=== PATIENT | female | born 1955 | race Caucasian/White ===

== ENCOUNTER 2016-05-09 22:13 | Emergency (ER) | payer OTHER ==
[2016-05-09 22:17] VITALS: BP 144/88; PULSE 95; TEMP 97.5; BMI 28.3
--- NOTE | 2016-05-09 22:36 | PDOC ---
History of Present Illness - General History Source: Patient Exam Limitations: No Limitations - History of Present Illness Initial Comments: 05/10/16 01:45 The patient is a 61 year old female with significant past medical history of MS , asthma, ulcerative colitis, anxiety, spinal stenosis who presents to the ED with 18 days of constipation. Patient states she has not had a bowel movement in 18 days. Patient denies abdominal pain, nausea, and vomiting. She also has complaints of increasing left arm weakness that she initially believes is due to a previous fall in the past. Patient denies numbness and tingling of the left arm. The patient denies fever, chills, cough, SOB, chest pain, and palpitations. Allergies: levofloxacin, natalizumab Social History: Lives alone- [facility]. No alcohol, tobacco, or drug use reported. Past Surgical History: None reported PCP: Dr. Pena Neurology: Dr. Jo Ma ([facility]) <Yaneth Burrows - Last Filed: 05/10/16 01:45> <Darlin Herbert - Last Filed: 05/10/16 05:10> - General Chief Complaint: Constipation Stated Complaint: Constipation Time Seen by Provider: 05/09/16 22:36 Past History <Yaneth Burrows - Last Filed: 05/10/16 01:45> - Past Medical History Asthma: Yes GI Disorders: Yes (colitis, proctitis) - Immunization History Immunization Up to Date: Yes - Psycho/Social/Smoking Cessation Hx Anxiety: No Suicidal Ideation: No Smoking History: Never smoked Have you smoked in the past 12 months: No If you are a former smoker, when did you quit?: 29 YEARS AGO Information on smoking cessation initiated: No Hx Alcohol Use: No Drug/Substance Use Hx: No Substance Use Type: Marijuana Hx Substance Use Treatment: No <Darlin Herbert - Last Filed: 05/10/16 05:10> - Past Medical History Allergies/Adverse Reactions: Allergies Allergy/AdvReac Type Severity Reaction Status Date / Time levofloxacin [From Levaquin] Allergy Verified 05/09/16 22:14 natalizumab [From Tysabri] Allergy Verified 05/09/16 22:14 IV DYE Allergy Severe Difficulty Uncoded 05/09/16 22:14 Breathing Home Medications: Ambulatory Orders Montelukast Na [Singulair -] 10 mg PO HS 05/24/15 Amitriptyline HCl [Elavil -] 100 mg PO HS 05/26/15 Eszopiclone [Lunesta] 2 mg PO HS 10/18/15 Hydrochlorothiazide [Hctz -] 12.5 mg PO DAILY 10/18/15 Fluticasone/Salmeterol [Advair 250-50 Diskus] 1 each IH DAILY 11/19/15 Glycerin [Adult Glycerin] 1 each PRN #20 supp.rect 05/10/16 Review of Systems - Review of Systems Able to Perform ROS?: Yes Comments:: 05/10/16 01:45 CONSTITUTIONAL: Absent: fever, chills, diaphoresis, generalized weakness, malaise, loss of appetite HEENT: Absent: rhinorrhea, nasal congestion, throat pain, throat swelling, difficulty swallowing, mouth swelling, ear pain, eye pain, visual Changes CARDIOVASCULAR: Absent: chest pain, syncope, palpitations, irregular heart rate, lightheadedness , peripheral edema RESPIRATORY: Absent: cough, shortness of breath, dyspnea with exertion, orthopnea, wheezing, stridor, hemoptysis GASTROINTESTINAL: +constipation Absent: abdominal pain, abdominal distension, nausea, vomiting, diarrhea, melena, hematochezia GENITOURINARY: Absent: dysuria, frequency, urgency, hesitancy, hematuria, flank pain, genital pain MUSCULOSKELETAL: Absent: myalgia, arthralgia, joint swelling SKIN: Absent: rash, itching, pallor NEUROLOGIC: +increasing left arm weakness Absent: headache, focal paresthesias, dizziness, unsteady gait, seizure, mental status changes, bladder or bowel incontinence PSYCHIATRIC: Absent: anxiety, depression, suicidal or homicidal ideation, hallucinations. <Yaneth Burrows - Last Filed: 05/10/16 01:45> *Physical Exam - Vital Signs Last Vital Signs Temp Pulse Resp BP Pulse Ox 97.5 F L 95 H 18 144/88 95 05/09/16 22:15 05/09/16 22:15 05/09/16 22:15 05/09/16 22:15 05/09/16 22:15 - Physical Exam Comments: 05/10/16 01:45 GENERAL: Pt is afebrile. Well developed, well nourished. Awake and alert. No acute distress. HEENT: Normocephalic, atraumatic. PERRLA, EOMI. No conjunctival pallor. Sclera are non- icteric. Moist mucous membranes. Oropharynx is clear. NECK: Supple. Full ROM. No JVD. Carotid pulses 2+ and symmetric, without bruits. No thyromegaly. No lymphadenopathy. CARDIOVASCULAR: Regular rate and rhythm. No murmurs, rubs, or gallops. Distal pulses are 2+ and symmetric. PULMONARY: No evidence of respiratory distress. Lungs clear to auscultation bilaterally. No wheezing, rales or rhonchi. ABDOMINAL: Soft. Non-tender. Distended. No rebound or guarding. No organomegaly. Normoactive bowel sounds. MUSCULOSKELETAL No bony deformities or tenderness. No CVA tenderness. EXTREMITIES: Bruising on legs bilaterally. No clubbing. No edema. No calf tenderness. SKIN: Warm and dry. Normal capillary refill. No rashes. No jaundice. NEUROLOGICAL: Alert, awake, appropriate. 3/5 strength upper extremities bilaterally. 2/5 strength lower extremities bilaterally. Limited ROM of left arm secondary to questionable weakness. PSYCHIATRIC: Cooperative. Good eye contact. Appropriate mood and affect. <Yaneth Burrows - Last Filed: 05/10/16 01:45> - Vital Signs Last Vital Signs Temp Pulse Resp BP Pulse Ox 97.5 F L 95 H 18 144/88 95 05/09/16 22:15 05/09/16 22:15 05/09/16 22:15 05/09/16 22:15 05/09/16 22:15 <Darlin Herbert - Last Filed: 05/10/16 05:10> ED Treatment Course - LABORATORY CBC & Chemistry Diagram: 05/10/16 00:47 05/10/16 00:47 - ADDITIONAL ORDERS Additional order review: Laboratory Results 05/10/16 00:47 Sodium 141 Potassium 3.3 L Chloride 104 Carbon Dioxide 28 Anion Gap 9 BUN 17 D Creatinine 0.8 Creat Clearance w eGFR > 60 Random Glucose 104 Calcium 9.3 Total Bilirubin 0.6 D AST 17 D ALT 21 D Alkaline Phosphatase 80 Total Protein 6.9 Albumin 3.7 Total Amylase 42 Lipase 129 05/10/16 00:47 RBC 5.10 MCV 86.2 MCHC 34.3 RDW 12.6 MPV 7.3 L Neutrophils % 62.4 Lymphocytes % 27.7 D Monocytes % 6.9 Eosinophils % 1.8 D Basophils % 1.2 D - Medications Given in the ED: ED Medications Discontinued Medications Generic Name Dose Route Start Last Admin Trade Name Prakash PRN Reason Stop Dose Admin Sodium Chloride 1,000 ml 05/09/16 23:49 05/10/16 00:51 Normal Saline - IV 05/09/16 23:50 1,000 ml ONCE ONE Administration <Yaneth Burrows - Last Filed: 05/10/16 01:45> - LABORATORY CBC & Chemistry Diagram: 05/10/16 00:47 05/10/16 00:47 <Darlin Herbert - Last Filed: 05/10/16 05:10> Medical Decision Making - Medical Decision Making 05/10/16 01:34 Pt has MS and spends most of her time in bed; SHe has 24 hour home health aides. Pt states that she has been constipated for 18 days. Abd is taut but non tender and not a surgiocal abdomen. Pt has no fever. She is just uncomfortable and wants to be evacuated.. Pt appears dehdrated. NSS give; glycerin suppositories given. Pt was able to move her bowels and she is feeling vastly improved. She will be sent home with ambulance. CXR is normal; labs wnl, except potassium is low; she was given magnesium and potassium. Pt is vastly improved. <Darlin Herebrt - Last Filed: 05/10/16 05:10> *DC/Admit/Observation/Transfer - Attestations Scribe Attestion: 05/10/16 01:45 Documentation prepared by Yaneth Burrows, acting as medical records specialist for Darlin Herbert MD <Yaneth Burrows - Last Filed: 05/10/16 01:45> - Discharge Dispostion Admit: No <Darlin Herbert - Last Filed: 05/10/16 05:10> Diagnosis at time of Disposition: Multiple sclerosis, Chronic constipation - Discharge Dispostion Disposition: HOME Condition at time of disposition: Improved - Prescriptions Prescriptions: Glycerin [Adult Glycerin] 1 each RC PRN #20 supp.rect - Patient Instructions Printed Discharge Instructions: DI for Constipation
[2016-05-09] MEDS ORDERED: SODIUM CHLORIDE 0.9% 1000 ML INFUS.BAG IV ONE (23:49)
[2016-05-10] MEDS ORDERED: GLYCERIN 1 RECTAL SUPPOSITORY, ADULT PR ONE (00:53)
[2016-05-10 01:03] LABS: BASOPHIL 1.2 % (0-2.0); EOSINOPHIL 1.8 % (0-4.5); MCH 29.5 pg (25.7-33.7); MCHC 34.3 g/dl (32.0-36.0); MEAN CELL VOLUME 86.2 fl (80-96); MEAN PLT VOLUME 7.3 fl (7.5-11.1); NEUTROPHILS 62.4 % (42.8-82.8); PLATELET COUNT 288 K/MM3 (134-434); RDW 12.6 % (11.6-15.6); WHITE BLOOD COUNT 9.4 K/mm3 (4.0-10.0)
[2016-05-10] MEDS ORDERED: GLYCERIN 1 RECTAL SUPPOSITORY, ADULT RC ONE (01:17)
[2016-05-10 01:42] LABS: ALBUMIN 3.7 g/dl (3.4-5.0); ALK PHOS 80 U/L (45-117); AMYLASE 42 U/L (25-115); ANION GAP 9 (8-16); BILIRUBIN,TOTAL 0.6 mg/dL (0.2-1.0); CALCIUM 9.3 mg/dL (8.5-10.1); CO2 28 mmol/L (21-32); CREATININE 0.8 mg/dL (0.55-1.02); GLUCOSE,RANDOM 104 mg/dL (74-106); SGOT/AST 17 U/L (15-37); SGPT/ALT 21 U/L (12-78); TOT PROT 6.9 g/dl (6.4-8.2)
[2016-05-10 02:17] LABS: URINE APPEARANCE CLEAR; URINE BILIRUBIN NEGATIVE (NEGATIVE); URINE BLOOD NEGATIVE (NEGATIVE); URINE COLOR YELLOW; URINE GLUCOSE (UA) NEGATIVE (NEGATIVE); URINE KETONE NEGATIVE (NEGATIVE); URINE LEUK ESTERASE NEGATIVE (NEGATIVE); URINE NITRITE NEGATIVE (NEGATIVE); URINE PROTEIN NEGATIVE (NEGATIVE); URINE UROBILINOGEN NEGATIVE E.U./dl (0.2-1.0)
[2016-05-10] MEDS ORDERED: MAGNESIUM SULF 50% (8.12 MEQ/2 ML-1 GM VIAL) IVPB ONE (02:36)
[2016-05-10] MEDS ORDERED: POTASSIUM CHLORIDE TABS 20 MEQ TABLET.ER (FP) PO ONE ×2 (02:36→03:09)
[2016-05-10] MEDS ORDERED: MAGNESIUM SULF 50% (8.12 MEQ/2 ML-1 GM VIAL) ONE (03:09)
[2016-05-10] MEDS ORDERED: SODIUM CHLORIDE 0.9% 500 ML INFUS.BAG IV ONE (04:28)
--- NOTE | 2016-05-10 11:53 | EKG ---
Test Reason : Blood Pressure : / mmHG Vent. Rate : 090 BPM Atrial Rate : 090 BPM P-R Int : 138 ms QRS Dur : 118 ms QT Int : 378 ms P-R-T Axes : 068 068 066 degrees QTc Int : 462 ms NORMAL SINUS RHYTHM INCOMPLETE RIGHT BUNDLE BRANCH BLOCK T WAVE ABNORMALITY, CONSIDER ANTEROLATERAL ISCHEMIA PROLONGED QT ABNORMAL ECG WHEN COMPARED WITH ECG OF 17-OCT-2015 21:41, CRITERIA FOR SEPTAL INFARCT ARE NO LONGER PRESENT T WAVE INVERSION NOW EVIDENT IN LATERAL LEADS Confirmed by WILI GEORGE, SUSAN ([id number]) on 05/10/2016 11:53:25 AM Referred By: Confirmed By:SUSAN RASHEED MD
== END 2016-05-10 05:48 | disposition home or self-care (01) ==
LOC: JER 22:13
PROC: 3E033GC Introduction of Other Therapeutic Substance into Peripheral Vein, Percutaneous Approach (ICD-10-PCS; principal; 2016-05-09)
DX: G35 Multiple sclerosis (principal); K59.09 Other constipation; Z87.891 Personal history of nicotine dependence; J45.909 Unspecified asthma, uncomplicated; F41.9 Anxiety disorder, unspecified; M48.00 Spinal stenosis, site unspecified
CPT/HCPCS: 36415; 71010-TC; 80053; 81003; 82150; 83690; 85025; 93005; 93010; 96374; 99281-25

== ENCOUNTER 2016-07-06 05:11 | Observation (INO) | payer OTHER ==
[2016-07-06 05:17] VITALS: BMI 29.2
--- NOTE | 2016-07-06 05:33 | PDOC ---
[id number] No Limitations - History of Present Illness Initial Comments: 07/06/16 05:54 The patient is a 61 year old female with significant past medical history of MS , asthma, ulcerative colitis, anxiety, spinal stenosis who presents to the ED BIBA from home with SOB just prior to arrival. Patient has a DITCH REPAIRER that comes in from 8am to 8pm and after her DITCH REPAIRER leaves, patient is in bed for the rest of the night. She states prior to going to bed, she was in her usual state of health when she suddenly felt SOB with occasional dry cough just prior to arrival. The patient denies fever, chills, diaphoresis, lightheadedness, chest pain, and palpitations. The patient denies abdominal pain, nausea, vomiting, and diarrhea. Allergies: levofloxacin, natalizumab Social History: Lives alone- [facility]. No alcohol, tobacco, or drug use reported. Past Surgical History: None reported PCP: Dr. Pena Neurology: Dr. Jo Ma ([facility]) <Yaneth Burrows - Last Filed: 07/06/16 07:03> - General History Source: Patient <JewelsColby mcdowell - Last Filed: 07/10/16 19:46> - General Chief Complaint: Shortness of Breath Stated Complaint: SOB Time Seen by Provider: 07/06/16 05:33 Past History <Yaneth Burrows - Last Filed: 07/06/16 07:03> - Past Medical History Asthma: Yes GI Disorders: Yes (colitis, proctitis) - Immunization History Immunization Up to Date: Yes - Psycho/Social/Smoking Cessation Hx Anxiety: No Suicidal Ideation: No Smoking History: Never smoked Have you smoked in the past 12 months: No Number of Cigarettes Smoked Daily: 0 If you are a former smoker, when did you quit?: 29 YEARS AGO Information on smoking cessation initiated: No Hx Alcohol Use: No Drug/Substance Use Hx: No Substance Use Type: Marijuana Hx Substance Use Treatment: No <Colby Merino - Last Filed: 07/10/16 19:46> - Past Medical History Allergies/Adverse Reactions: Allergies Allergy/AdvReac Type Severity Reaction Status Date / Time levofloxacin [From Levaquin] Allergy Verified 07/06/16 05:15 natalizumab [From Tysabri] Allergy Verified 07/06/16 05:15 IV DYE Allergy Severe Difficulty Uncoded 07/06/16 05:15 Breathing Home Medications: Ambulatory Orders Montelukast Na [Singulair -] 10 mg PO HS 05/24/15 Amitriptyline HCl [Elavil -] 100 mg PO HS 05/26/15 Eszopiclone [Lunesta] 10 mg PO HS 10/18/15 Hydrochlorothiazide [Hctz -] 12.5 mg PO DAILY 10/18/15 Fluticasone/Salmeterol [Advair 250-50 Diskus] 1 each IH DAILY 11/19/15 Cholecalciferol (Vitamin D3) [Vitamin D -] 2,000 unit PO DAILY 07/06/16 Dalfampridine [Ampyra] 10 mg PO BID 07/06/16 Prednisone 10 mg PO DAILY #12 tablet 07/07/16 Review of Systems - Review of Systems Able to Perform ROS?: Yes Comments:: 07/06/16 05:54 CONSTITUTIONAL: Absent: fever, chills, diaphoresis, generalized weakness, malaise, loss of appetite HEENT: Absent: rhinorrhea, nasal congestion, throat pain, throat swelling, difficulty swallowing, mouth swelling, ear pain, eye pain, visual Changes CARDIOVASCULAR: Absent: chest pain, syncope, palpitations, irregular heart rate, lightheadedness , peripheral edema RESPIRATORY: +cough, shortness of breath Absent: dyspnea with exertion, orthopnea, wheezing, stridor, hemoptysis GASTROINTESTINAL: Absent: abdominal pain, abdominal distension, nausea, vomiting, diarrhea, constipation, melena, hematochezia GENITOURINARY: Absent: dysuria, frequency, urgency, hesitancy, hematuria, flank pain, genital pain MUSCULOSKELETAL: Absent: myalgia, arthralgia, joint swelling SKIN: Absent: rash, itching, pallor NEUROLOGIC: Absent: headache, focal weakness or paresthesias, dizziness, seizure, mental status changes, bladder or bowel incontinence <Yaneth Burrows - Last Filed: 07/06/16 07:03> *Physical Exam - Vital Signs Last Vital Signs Temp Pulse Resp BP Pulse Ox 97.4 F L 88 16 134/103 92 L 07/06/16 05:15 07/06/16 05:15 07/06/16 05:15 07/06/16 05:15 07/06/16 05:15 - Physical Exam Comments: 07/06/16 05:54 GENERAL: Well developed, well nourished. Awake and alert. No acute distress. HEENT: Normocephalic, atraumatic. PERRLA, EOMI. No conjunctival pallor. Sclera are non- icteric. Moist mucous membranes. Oropharynx is clear. NECK: Supple. No JVD. Carotid pulses 2+ and symmetric, without bruits. No thyromegaly. No lymphadenopathy. CARDIOVASCULAR: Tachycardia. Regular rhythm. No murmurs, rubs, or gallops. Distal pulses are 2+ and symmetric. PULMONARY: Moderate respiratory distress. Handling secretions well. Tachypneic. Decreased breath sounds. No wheezing, rales or rhonchi. ABDOMINAL: Soft. Non-tender. Non-distended. No rebound or guarding. No organomegaly. Normoactive bowel sounds. MUSCULOSKELETAL No bony deformities or tenderness. No CVA tenderness. EXTREMITIES: No cyanosis. No clubbing. No edema. No calf tenderness. SKIN: Warm and dry. Normal capillary refill. No rashes. No jaundice. NEUROLOGICAL: Alert, awake, oriented. Answering questions appropriately. 1/5 muscle strength x4 extremities. PSYCHIATRIC: Cooperative. Good eye contact. Appropriate mood and affect. <Yaneth Burrows - Last Filed: 07/06/16 07:03> - Vital Signs Last Vital Signs Temp Pulse Resp BP Pulse Ox 97.4 F L 88 16 134/103 92 L 07/06/16 05:15 07/06/16 05:15 07/06/16 05:15 07/06/16 05:15 07/06/16 05:15 <Colby Merino - Last Filed: 07/10/16 19:46> Heart Score/ECG Review - ECG Impressions Comment:: 07/06/16 07:03 <Yaneth Burrows - Last Filed: 07/06/16 07:03> ED Treatment Course - LABORATORY CBC & Chemistry Diagram: 07/06/16 05:48 07/06/16 05:48 <Yaneth Burrows - Last Filed: 07/06/16 07:03> - LABORATORY CBC & Chemistry Diagram: 07/07/16 05:35 07/07/16 05:35 <Colby Merino - Last Filed: 07/10/16 19:46> Medical Decision Making - Medical Decision Making 07/10/16 19:46 Dr. Merino: The scribe's documentation has been prepared under my direction and personally reviewed by me in its entirery. I confirm that the note above accurately reflects all work, treatment, procedures, and medical decision making performed by me. <Colby Merino - Last Filed: 07/10/16 19:46> *DC/Admit/Observation/Transfer - Attestations Scribe Attestion: 07/06/16 05:55 Documentation prepared by Yaneth Burrows, acting as medical assistant per diem for Colby Merino MD <Yaneth Burrows - Last Filed: 07/06/16 07:03> - Discharge Dispostion Admit: No <Colby Merino - Last Filed: 07/10/16 19:46> Diagnosis at time of Disposition: Multiple sclerosis Asthma Qualifiers: Asthma severity: unspecified severity Asthma complication type: with acute exacerbation Qualified Code(s): J45.901 - Unspecified asthma with (acute) exacerbation - Discharge Dispostion Disposition: HOME Condition at time of disposition: Stable - Prescriptions
[2016-07-06] MEDS ORDERED: ALBUTEROL SO4 2.5/IPRATROPIUM 0.5 INH SOL 3 ML VIAL.NEB. NEB STA ×2 (05:35→05:36)
[2016-07-06] MEDS ORDERED: methylPREDNISolone NA SUCC 125 MG/2 ML VIAL IVPB ONE (05:35)
[2016-07-06] MEDS ORDERED: SODIUM CHLORIDE 1,000 ML IV STA (05:35)
[2016-07-06] MEDS ORDERED: methylPREDNISolone NA SUCC 125 MG/2 ML VIAL ONE (05:45)
[2016-07-06 06:28] LABS: BASOPHIL 0.8 % (0-2.0); EOSINOPHIL 4.5 % (0-4.5); MCH 29.6 pg (25.7-33.7); MEAN CELL VOLUME 87.1 fl (80-96); MEAN PLT VOLUME 7.3 fl (7.5-11.1); NEUTROPHILS 55.7 % (42.8-82.8); PLATELET COUNT 323 K/MM3 (134-434); RDW 13.5 % (11.6-15.6); WHITE BLOOD COUNT 7.3 K/mm3 (4.0-10.0)
[2016-07-06 06:40] LABS: INR 1.03 (0.82-1.09); PROTHROMBIN TIME (PATIENT) 11.3 SEC (9.98-11.88)
[2016-07-06 06:48] LABS: ANION GAP 8 (8-16); BILIRUBIN,TOTAL 0.3 mg/dL (0.2-1.0); CALCIUM 9.4 mg/dL (8.5-10.1); CO2 31 mmol/L (21-32); CREATININE 0.8 mg/dL (0.55-1.02); GLUCOSE,RANDOM 108 mg/dL (74-106); MAGNESIUM 2.4 mg/dL (1.8-2.4); SGOT/AST 35 U/L (15-37); SGPT/ALT 55 U/L (12-78); TOT PROT 7.1 g/dl (6.4-8.2)
[2016-07-06 06:51] LABS: ALK PHOS 108 U/L (45-117); TROPONIN I < 0.02 ng/ml (0.00-0.05)
[2016-07-06 06:54] LABS: URINE APPEARANCE CLEAR; URINE BILIRUBIN NEGATIVE (NEGATIVE); URINE BLOOD NEGATIVE (NEGATIVE); URINE COLOR YELLOW; URINE GLUCOSE (UA) NEGATIVE (NEGATIVE); URINE KETONE NEGATIVE (NEGATIVE); URINE LEUK ESTERASE NEGATIVE (NEGATIVE); URINE NITRITE NEGATIVE (NEGATIVE); URINE PROTEIN NEGATIVE (NEGATIVE); URINE UROBILINOGEN NEGATIVE E.U./dl (0.2-1.0)
[2016-07-06 07:19] LABS: ARTERIAL BLD GAS O2 SATURATION 96.3 % (90-98.9); ARTERIAL BLOOD GAS BASE EXCESS 1.5 meq/l (-2-2); ARTERIAL BLOOD GAS HCO3 25.7 meq/L (22-26); ARTERIAL BLOOD GAS PO2 83.3 mmHg (80-100); ARTERIAL BLOOD GAS pH 7.41 (7.35-7.45)
[2016-07-06 07:20] LABS: ALLENS TEST POSITIVE; ART PUNCT SITE RIGHT RADIAL; LPM/O2% 2L; METHEMOGLOBIN 0.6 % (0.4-1.5); PT. ON O2? YES; TYPE OF O2 NASAL
[2016-07-06] MEDS ORDERED: ALBUTEROL SO4 2.5/IPRATROPIUM 0.5 INH SOL 3 ML VIAL.NEB. NEB ONE (07:40)
--- NOTE | 2016-07-06 07:41 | PDOC ---
*Physical Exam - Vital Signs Last Vital Signs Temp Pulse Resp BP Pulse Ox 97.4 F L 85 20 152/86 100 07/06/16 05:15 07/06/16 07:02 07/06/16 07:02 07/06/16 07:02 07/06/16 07:02 ED Treatment Course - LABORATORY CBC & Chemistry Diagram: 07/06/16 05:48 07/06/16 05:48 - ADDITIONAL ORDERS Additional order review: Laboratory Results 07/06/16 07/06/16 07/06/16 07:15 06:47 05:48 INR D-Dimer Puncture Site Right radial ABG pH 7.41 ABG pCO2 at Pt Temp 41.2 ABG pO2 at Pt Temp 83.3 D ABG HCO3 25.7 ABG O2 Sat (Measured) 96.3 ABG O2 Content 18.8 ABG Base Excess 1.5 [place] Test Positive Carboxyhemoglobin 0.9 Methemoglobin 0.6 O2 Delivery Device Nasal Oxygen Flow Rate 2l PEEP 0.0 Sodium 143 Potassium 3.7 Chloride 104 Carbon Dioxide 31 Anion Gap 8 BUN 16 Creatinine 0.8 Creat Clearance w eGFR > 60 Random Glucose 108 H Calcium 9.4 Magnesium 2.4 Total Bilirubin 0.3 D AST 35 D ALT 55 D Alkaline Phosphatase 108 D Creatine Kinase 61 Troponin I < 0.02 Total Protein 7.1 Albumin 4.0 Lipase 126 Urine Color Yellow Urine Appearance Clear Urine pH 5.0 Ur Specific [place] 1.027 Urine Protein Negative Urine Glucose (UA) Negative Urine Ketones Negative Urine Blood Negative Urine Nitrite Negative Urine Bilirubin Negative Urine Urobilinogen Negative Ur Leukocyte Esterase Negative 07/06/16 05:48 INR 1.03 D-Dimer 215 Puncture Site ABG pH ABG pCO2 at Pt Temp ABG pO2 at Pt Temp ABG HCO3 ABG O2 Sat (Measured) ABG O2 Content ABG Base Excess [place] Test Carboxyhemoglobin Methemoglobin O2 Delivery Device Oxygen Flow Rate PEEP Sodium Potassium Chloride Carbon Dioxide Anion Gap BUN Creatinine Creat Clearance w eGFR Random Glucose Calcium Magnesium Total Bilirubin AST ALT Alkaline Phosphatase Creatine Kinase Troponin I Total Protein Albumin Lipase Urine Color Urine Appearance Urine pH Ur Specific [place] Urine Protein Urine Glucose (UA) Urine Ketones Urine Blood Urine Nitrite Urine Bilirubin Urine Urobilinogen Ur Leukocyte Esterase 07/06/16 05:48 RBC 5.39 H MCV 87.1 MCHC 34.0 RDW 13.5 MPV 7.3 L Neutrophils % 55.7 Lymphocytes % 32.5 Monocytes % 6.5 Eosinophils % 4.5 D Basophils % 0.8 - Medications Given in the ED: ED Medications Discontinued Medications Generic Name Dose Route Start Last Admin Trade Name Prakash PRN Reason Stop Dose Admin Albuterol/Ipratropium 1 amp 07/06/16 05:35 07/06/16 06:46 Duoneb - NEB 07/06/16 05:36 1 amp ONCE STA Administration Albuterol/Ipratropium 1 amp 07/06/16 05:36 07/06/16 06:46 Duoneb - NEB 07/06/16 05:37 1 amp ONCE STA Administration Sodium Chloride 1,000 mls @ 1,000 mls/hr 07/06/16 05:35 07/06/16 06:18 Normal Saline - IV 07/06/16 06:34 1,000 mls/hr ASDIR STA Administration Methylprednisolone Sodium Succinate 125 mg 07/06/16 05:35 07/06/16 06:19 Solu-Medrol - IVPB 07/06/16 05:36 125 mg ONCE ONE Administration Medical Decision Making - Medical Decision Making 07/06/16 07:41 pt still feeling sob received multiple nebs and solumedrol cxr neg due to hx of progressive ms and asthma will admit to obs for management of her asthma and sob 07/06/16 09:[address] aranda service case microblogged to dr. de león. Case discussed in detail with admitting physician including history, physical exam and ancillary studies. Admitting physician has assumed care for the patient, will follow all pending diagnostics and will complete the evaluation and treatment. *DC/Admit/Observation/Transfer Diagnosis at time of Disposition: Multiple sclerosis Asthma Qualifiers: Asthma severity: unspecified severity Asthma complication type: with acute exacerbation Qualified Code(s): J45.901 - Unspecified asthma with (acute) exacerbation - Discharge Dispostion Condition at time of disposition: Stable Admit: Yes
--- NOTE | 2016-07-06 09:28 | HP ---
[id number] has not seen him Neurologist: Dr. Ma HISTORY OF PRESENT ILLNESS: This is a 61 year old female with past medical history of asthma (maintained on Singulair/Advair, <3 exacerbations per year with infrequent hospitalizations, never intubated), multiple sclerosis ( relapsing-remitting x 35 yrs, secondary progressive for last 5 yrs), cervical spinal stenosis, ulcerative colitis, anxiety, and depression, who presented to the ED by ambulance today complaining of shortness of breath. She reports that her symptoms started at approximately 7:30pm yesterday after she had difficulty swallowing 3 pills (?Biotin supplements). Since then, she has had a non- productive cough and shortness of breath. She used her albuterol MDI once without relief. 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 12 hours/day, completely bedbound, unable to sit up without assistance Smoking: Former smoker, quit 29 yrs ago Alcohol: None Drugs: None Family History: Mother with liver and pancreatic disease Allergies levofloxacin [From Levaquin] Allergy (Verified 07/06/16 05:15) natalizumab [From Tysabri] Allergy (Verified 07/06/16 05:15) IV DYE Allergy (Severe, Uncoded 07/06/16 05:15) Difficulty Breathing Home Medications Medication Instructions Recorded Montelukast Na [Singulair -] 10 mg PO HS 05/24/15 Amitriptyline HCl [Elavil -] 100 mg PO HS 05/26/15 Eszopiclone [Lunesta] 10 mg PO HS 10/18/15 Hydrochlorothiazide [Hctz -] 12.5 mg PO DAILY 10/18/15 Fluticasone/Salmeterol [Advair 1 each IH DAILY 11/19/15 250-50 Diskus] Cholecalciferol (Vitamin D3) 2,000 unit PO DAILY 07/06/16 [Vitamin D3 -] Dalfampridine [Ampyra] 10 mg PO BID 07/06/16 REVIEW OF SYSTEMS CONSTITUTIONAL: Absent: fever, chills, diaphoresis, malaise, loss of appetite, weight change HEENT: Some difficulty swallowing Absent: rhinorrhea, nasal congestion, throat pain, throat swelling, mouth swelling, ear pain, eye pain, visual changes CARDIOVASCULAR: "Legs swollen" Absent: chest pain, syncope, palpitations, irregular heart rate, lightheadedness RESPIRATORY: See HPI Absent: orthopnea, stridor, hemoptysis GASTROINTESTINAL:+ occasional constipation Absent: abdominal pain, abdominal distension, nausea, vomiting, diarrhea, melena , hematochezia GENITOURINARY: Absent: dysuria, frequency, urgency, hesitancy, hematuria, flank pain, genital pain MUSCULOSKELETAL: + neck pain (attributes to cervical spinal stenosis), unable to turn head to right at baseline Absent: myalgia, arthralgia, joint swelling, back pain SKIN: +rash to neck chest and abdomen Absent: itching, pallor HEMATOLOGIC/IMMUNOLOGIC: Absent: easy bleeding, easy bruising, lymphadenopathy, frequent infections ENDOCRINE: Absent: unexplained weight gain, unexplained weight loss, heat intolerance, cold intolerance NEUROLOGIC: + occasional vertigo (chronic) Absent: headache, dizziness,seizure, mental status changes, bladder or bowel incontinence; uses diaper at night PSYCHIATRIC: + anxiety, depression Absent: suicidal or homicidal ideation, hallucinations. PHYSICAL EXAMINATION Vital Signs - 24 hr 07/06/16 07/06/16 07/06/16 05:15 07:02 07:49 Temperature 97.4 F L 97.7 F Pulse Rate 88 82 Pulse Rate [ 82 Apical] Pulse Rate [ 85 Radial] Respiratory 16 20 18 Rate Blood Pressure 134/103 Blood Pressure 152/86 152/86 [Right Arm] O2 Sat by Pulse 92 L 100 96 Oximetry (%) GENERAL: Awake, alert, and fully oriented, in no acute distress. HEAD: Normal with no signs of trauma. LUNGS: Scattered left-sided rhonchi, diminished breath sounds right base HEART: Regular rate and rhythm, S1/S2, no murmurs ABDOMEN: Soft, nontender, not distended, normoactive bowel sounds MUSCULOSKELETAL: Normal range of motion at all joints. UPPER EXTREMITIES: 2+ pulses, warm, well-perfused. LOWER EXTREMITIES: Trace peripheral edema. 2+ pulses, warm, no calf tenderness. NEUROLOGICAL: Left upper extremity strength 2/5, LLE 1/5, RLE 2/5. Mild dysarthria. PSYCHIATRIC: Cooperative. Good eye contact. Appropriate mood and affect. SKIN: Blanchable macular rash to face, chest and abdomen, no involvement of palms, soles, or mucous membranes. Dry mucous membranes. Skin warm, dry, normal capillary refill. Mild erythema in inguinal folds. Laboratory Results - last 24 hr 07/06/16 07/06/16 07/06/16 05:48 05:48 05:48 WBC 7.3 RBC 5.39 H Hgb 16.0 H Hct 47.0 H MCV 87.1 MCHC 34.0 RDW 13.5 Plt Count 323 MPV 7.3 L Neutrophils % 55.7 Lymphocytes % 32.5 Monocytes % 6.5 Eosinophils % 4.5 D Basophils % 0.8 INR 1.03 D-Dimer 215 Puncture Site ABG pH ABG pCO2 at Pt Temp ABG pO2 at Pt Temp ABG HCO3 ABG O2 Sat (Measured) ABG O2 Content ABG Base Excess [place] Test Carboxyhemoglobin Methemoglobin O2 Delivery Device Oxygen Flow Rate PEEP Sodium 143 Potassium 3.7 Chloride 104 Carbon Dioxide 31 Anion Gap 8 BUN 16 Creatinine 0.8 Creat Clearance w eGFR > 60 Random Glucose 108 H Calcium 9.4 Magnesium 2.4 Total Bilirubin 0.3 D AST 35 D ALT 55 D Alkaline Phosphatase 108 D Creatine Kinase 61 Troponin I < 0.02 Total Protein 7.1 Albumin 4.0 Lipase 126 Urine Color Urine Appearance Urine pH Ur Specific [place] Urine Protein Urine Glucose (UA) Urine Ketones Urine Blood Urine Nitrite Urine Bilirubin Urine Urobilinogen Ur Leukocyte Esterase 07/06/16 07/06/16 06:47 07:15 WBC RBC Hgb Hct MCV MCHC RDW Plt Count MPV Neutrophils % Lymphocytes % Monocytes % Eosinophils % Basophils % INR D-Dimer Puncture Site Right radial ABG pH 7.41 ABG pCO2 at Pt Temp 41.2 ABG pO2 at Pt Temp 83.3 D ABG HCO3 25.7 ABG O2 Sat (Measured) 96.3 ABG O2 Content 18.8 ABG Base Excess 1.5 [place] Test Positive Carboxyhemoglobin 0.9 Methemoglobin 0.6 O2 Delivery Device Nasal Oxygen Flow Rate 2l PEEP 0.0 Sodium Potassium Chloride Carbon Dioxide Anion Gap BUN Creatinine Creat Clearance w eGFR Random Glucose Calcium Magnesium Total Bilirubin AST ALT Alkaline Phosphatase Creatine Kinase Troponin I Total Protein Albumin Lipase Urine Color Yellow Urine Appearance Clear Urine pH 5.0 Ur Specific [place] 1.027 Urine Protein Negative Urine Glucose (UA) Negative Urine Ketones Negative Urine Blood Negative Urine Nitrite Negative Urine Bilirubin Negative Urine Urobilinogen Negative Ur Leukocyte Esterase Negative ASSESSMENT: 61 year old female placed in observation for asthma exacerbation. 1. Dyspnea/cough -May be secondary to asthma exacerbation; however, no wheezing on exam and patient states symptoms are not typical of prior exacerbations -Patient currently denies foreign body sensation but continues to be symptomatic -Continue DuoNebs, Solu-Medrol 40mg q8h (taper as tolerated), home Singulair -NIF testing to evaluate for diaphragmatic weakness in the setting of progressive MS- discussed with respiratory -Supplemental O2 as needed -Speech/swallow evaluation to rule out aspiration -Pulmonary evaluation 2. MS -Continue Dalfampridine -Turn and position q2 hours -Physical therapy evaluation -Social Work consult for consideration of increased [employer] hours - discussed SNF placement with patient and she is not amenable at this time -Had Allred catheter placed in ED; will dc 3. Dehydration -Dry mucous membranes on exam, H/H , patient states she drinks 6 ounces of water a day. -IVF Normal saline 83ml/hour 4. Ulcerative colitis -No active issues, infrequent exacerbations 5. Anxiety/depression/insomnia -Continue Elavil, Lunesta 6. Ppx - Lovenox 40 mg daily Code status: FULL CODE Addendum 16:56: NIF -10, VC 250 Visit type - Emergency Visit Emergency Visit: Yes ED Registration Date: 07/06/16 Care time: The patient presented to the Emergency Department on the above date and was hospitalized for further evaluation of their emergent condition. - New Patient This patient is new to me today: Yes Date on this admission: 07/06/16 - Critical Care Critical Care patient: No
[2016-07-06] MEDS ORDERED: ACETAMINOPHEN 325 MG TABLET (FP) PO PRN (11:28)
[2016-07-06] MEDS ORDERED: ONDANSETRON 4 MG/2 ML VIAL IVPB PRN (11:28)
[2016-07-06] MEDS ORDERED: ALBUTEROL SO4 2.5/IPRATROPIUM 0.5 INH SOL 3 ML VIAL.NEB. NEB SCH (11:30)
--- NOTE | 2016-07-06 11:34 | EKG ---
Test Reason : Blood Pressure : / mmHG Vent. Rate : 085 BPM Atrial Rate : 085 BPM P-R Int : 134 ms QRS Dur : 106 ms QT Int : 402 ms P-R-T Axes : 078 046 055 degrees QTc Int : 478 ms NORMAL SINUS RHYTHM LOW VOLTAGE QRS INCOMPLETE RIGHT BUNDLE BRANCH BLOCK BORDERLINE ECG WHEN COMPARED WITH ECG OF 10-MAY-2016 01:13, NO SIGNIFICANT CHANGE WAS FOUND Confirmed by RODOLFO DARNELL MD ([id number]) on 07/06/2016 11:34:03 AM Referred By: Confirmed By:RODOLFO DARNELL MD
--- NOTE | 2016-07-06 12:36 | CONSULT ---
Admitting History and Physical - Primary Care Physician PCP: Dania Jennings - Admission History of Present Illness: Per EMR: "HISTORY OF PRESENT ILLNESS: This is a 61 year old female with past medical history of asthma, multiple sclerosis, spinal stenosis, ulcerative colitis, anxiety, and depression, who presented to the ED, brought in by ambulance, complaining of shortness of breath after taking an OTC medication (for hair, skin and nails). She reports non-productive cough, unrelieved by MDI at home, that feels different than her normal asthma presentation. She received duoneb x3 and solumedrol 125mg x1 in the ED with improvement. Her asthma is usually controlled at home with singulair and advair, she comes to the ED a couple times a year with asthma exacerbation that improves with duonebs and steroids, and she has never been intubated. She states that her MS was relaxing and remitting for 35 years and progressive for the last five years, now she takes Dalfampridine at home; she has bilateral lower leg weakness, moderate upper extremity strength, with some left upper extremity weakness. She states that she has some difficulty swallowing, and only drinks 6 ounces of water a day because she has difficulty getting getting to the bathroom, however she denies any difficulty with bowel or bladder function. She denies any pain, fever, chills, palpitations, nausea, vomiting, diarrhea, lightheadedness, hematuria, or rectal bleeding. Her ulcerative colitis presents 1x per year, but currently stable. Was admitted for observation and evaluation of asthma exacerbation. ER course was notable for: (1) SPO2 92% on Room Air (2) CXR - shows no evidence of vascular congestion, no PTX or pleural effusion. " Pt seen reclining, feeding herself, with occasional cough.Pt remembers me from [facility] 10/01/15. c/o are the exact same as that time, with reports of reflux. At that time she was advised to sit fully upright for meals and for 1 hour after meals. No po w/in 2 hr of bedtime. GI consult. Pt reports that she still is in bed 90-95% of the time, reclined to about 30% for meals.Still with symptoms of reflux. 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 Pulmonary: Yes: Asthma Gastrointestinal: Yes: Ulcerative Colitis ...: No - Past Surgical History Past Surgical History: Yes: None - Advance Directives Advance Directives: Yes: Health Care Proxy - Smoking History Smoking history: Former smoker Have you smoked in the past 12 months: No Aproximately how many cigarettes per day: 0 If you are a former smoker, when did you quit?: 29 YEARS AGO - Alcohol/Substance Use Hx Alcohol Use: No History of Substance Use: reports: Marijuana - Social History History of Recent Travel: No History - Admission Reason For Visit: MULTIPLE SCLEROSIS,ASTHMA - Diagnostics X-ray: Report Reviewed - General Mental Status: Alert and Oriented, Awake and Alert, Able to Follow Commands Attention: Intact Ability to Follow Directions: Excellent - Hearing Hearing: Normal Hearing Aide: No Speech Evaluation - Communication Primary Language: GEORGIAN Communication: Yes: Within Normal Limits Oral Expression Ability: Yes: No Impairment - Speech Production Able to Make Needs Known: Yes: WNL Intelligibility: Yes: WNL - Speech Characteristics Voice Loudness: Normal Voice Pitch: Yes: Normal Voice Phonatory-based Quality: Yes: Normal Speech Pattern: Normal Speech Clarity: < 100% Nasal Resonance: Normal Articulation: Yes: Precise Rate of Speech: Intact - Language/Auditory Comprehension Follows: Yes: 2 Stage Simple Commands - Language/Verbal Expression Able to Respond to Simple Queries: Yes: WNL Able to Communicate Wants and Needs: Yes: WNL Functional Communication Status: Yes: WNL Attention: Yes: Intact - Memory/Perception manager terminal Memory: Yes: WNL Short Term Memory: Yes: WNL - Swallow Evaluation/Bedside Assessment Current Nutritional Intake: Regular, Thin Liquids Oral Secretions: Yes: WFL Dentition: Yes: Adequate Facial Symmetry at Rest: Symmetrical Facial Symmetry on Retraction: Symmetrical Facial Movement: Controlled Sensation: Normal Against Resistance Opening: Normal Against Resistance Closing: Normal Pucker Lips: Normal Smile: Normal Lingual Movement: Normal Lingual Speed of Movement: Normal Lingual Movement Strgth Against Opposition: Normal Lingual Movement Characteristics: Normal Velopharyngeal Movement: Normal Laryngeal Elevation: WFL Laryngeal Movement: Able to Palpate Rate of Intake: WFL Bolus Size: WFL Labial Seal: WFL Chewing: WFL Oral Prep Time: WFL A-P Transit: WFL Timing of Swallow: WFL Coughing/Throat Clear: Yes (occasional) Recommendations - Speech Evaluation, Impression/Plan Impression: Swallowing seems unchanged since [facility] 10/01/15. Pt eats/drinks in reclining position, c/o pain when seated more upright. Pt c/o persistent heatburn. - Dysphagia Impressions/Plan Dysphagia Impressions: Mild Impairment, Risk of Aspiration *Silent aspiration: cannot be R/O at bedside Dysphagia Treatment Plan: Elevate HOB during feed (PT consult for possible modification of positining to elevated HOB during and after meals.) Recommendations: Other (Medical mgmt of c/o heartburn) - Recommendations Diet Consistency: Regular, Other (gerd precautions) Liquids: Thin Liquids
--- NOTE | 2016-07-06 12:53 | CONSULT ---
Consultation: CONSULT REQUEST: We have been asked to medically evaluate this patient for asthma exacerbation vs aspiration. HISTORY OF PRESENT ILLNESS: Patient is a 61 year old female with PMH of Asthma (20+ years, on Singulair & Advair), Former smoker, Multiple Sclerosis (waning exacerbations but steadily worsening last 5 years), Ulcerative Colitis & Anxiety/Depression who presented to ED this this morning for shortness of breath. Patient states she took a vitamin last night (believes it was Biotin) and started aggressively coughing after "it went down the wrong pipe". She has had several events like this in her past, where she has had severe coughing fits after attempting to swallow a pill. She usually just gives herself a nebulizer treatment and home with improvement, but last night the cough did not improve with MDI. Received duonebs x3 & Solumedrol 125mg in ED with minimal improvement in symptoms. Patient was afebrile, with oxygen saturations >92% on room air in ED. Patient states she feels better this morning, but still feels like there is something in her lungs she wants to cough out. No sputum production this AM. Afebrile overnight into this morning with stable vitals including OP2 Saturations during entire stay thus far. No wheezing noted. CXR: No signs of congestion, infiltrate or effusions. No acute pathologies noted. REVIEW OF SYSTEMS: CONSTITUTIONAL: Absent: fever, chills, diaphoresis, generalized weakness, malaise, loss of appetite, weight change HEENT: (+) difficulty swallowing, Absent: rhinorrhea, nasal congestion, throat pain, throat swelling, mouth swelling, ear pain, eye pain, visual changes CARDIOVASCULAR: Absent: chest pain, syncope, palpitations, irregular heart rate, lightheadedness , peripheral edema RESPIRATORY: (+) cough, Absent:shortness of breath, dyspnea with exertion, orthopnea, wheezing, stridor , hemoptysis GASTROINTESTINAL: Absent: abdominal pain, abdominal distension, nausea, vomiting, diarrhea, constipation, melena, hematochezia GENITOURINARY: Absent: dysuria, frequency, urgency, hesitancy, hematuria, flank pain, genital pain MUSCULOSKELETAL: Absent: myalgia, arthralgia, joint swelling, back pain, neck pain SKIN: Absent: rash, itching, pallor HEMATOLOGIC/IMMUNOLOGIC: Absent: easy bleeding, easy bruising, lymphadenopathy, frequent infections ENDOCRINE: Absent: unexplained weight gain, unexplained weight loss, heat intolerance, cold intolerance NEUROLOGIC: Absent: headache, focal weakness or paresthesias, dizziness, unsteady gait, seizure, mental status changes, bladder or bowel incontinence PSYCHIATRIC: Absent: anxiety, depression, suicidal or homicidal ideation, hallucinations. PHYSICAL EXAMINATION Vital Signs - 24 hr 07/06/16 07/06/16 10:26 10:39 Temperature 97.7 F Pulse Rate 98 H Pulse Rate [ 85 Apical] Respiratory 16 18 Rate Blood Pressure 144/71 Blood Pressure 138/71 [Right Arm] O2 Sat by Pulse 96 97 Oximetry (%) GENERAL: Awake, alert, and fully oriented, in no acute distress. Resting comfortably in bed. HEENT: Atraumatic, EOMI, PERRLA, No lymphadenopathy noted, moist membranes. No foreign objects noted in pharynx. LUNGS: Mildly diminished breath sounds bilateral lung guerrero. Mild crackles noted in left basilar lung. NO WHEEZING NOTED. HEART: Regular rate and rhythm, normal S1 and S2 without murmur, rub or gallop. ABDOMEN: Soft, nontender, not distended, normoactive bowel sounds EXTREMITIES: 2+ pulses, warm, well-perfused. No calf tenderness. Trace peripheral edema bilateral lower extremity NEUROLOGICAL: Cranial nerves II-XII intact. Normal speech. Gait not observed. PSYCHIATRIC: Cooperative. Good eye contact. Appropriate mood and affect. SKIN: Warm, dry, normal turgor, no rashes or lesions noted. Active Medications Generic Name Dose Route Start Last Admin Trade Name Freq PRN Reason Stop Dose Admin Acetaminophen 650 mg 07/06/16 11:28 Tylenol - PO Q4H PRN FEVER OR PAIN Albuterol/Ipratropium 1 amp 07/06/16 11:30 Duoneb - NEB Q6H DANTE Amitriptyline HCl 100 mg 07/06/16 22:00 Elavil - PO HS DANTE Cholecalciferol 2,000 unit 07/07/16 10:00 Vitamin D3 - PO DAILY DANTE Docusate Sodium 100 mg 07/06/16 14:00 Colace - PO TID DANTE Enoxaparin Sodium 40 mg 07/07/16 10:00 Lovenox - SQ DAILY DANTE Sodium Chloride 1,000 mls @ 83 mls/hr 07/06/16 11:30 Normal Saline - IV ASDIR DANTE Methylprednisolone Sodium Succinate 40 mg 07/06/16 18:00 Solu-Medrol - IVPB Q8H-IV DANTE Montelukast Sodium 10 mg 07/06/16 22:00 Singulair - PO HS DANTE Non-Formulary Medication 10 mg 07/06/16 22:00 Dalfampridine [Ampyra] PO BID DANTE Non-Formulary Medication 10 mg 07/06/16 22:00 Eszopiclone [Lunesta] PO HS DANTE Ondansetron HCl 4 mg 07/06/16 11:28 Zofran Injection IVPB Q6H PRN NAUSEA ASSESSMENT/PLAN: 61 year old female with PMH of Asthma (20+ years, on Singulair & Advair), Former smoker, Multiple Sclerosis (waning exacerbations but steadily worsening last 5 years), Ulcerative Colitis & Anxiety/Depression who presented to ED this this morning for shortness of breath. #Cough/Shortness of breath, likely secondary to pill aspiration -may be due to progression of patient's MS -Speech/Swallow eval needed -Duonebs QIDR -Solumedrol 40mg q8h started, can switch to oral prednisone tomorrow -keep O2 sat >92% -CXR reviewed #MS -continue home meds: Dalfampridine -rest as above -PT #Asthma -unlikely patient is in actual exacerbation -will monitor inspiratory flow, Vital capacity -continue home meds: Singulair -rest as above #Anxiety -continue home meds: Amitryptyline, Lunesta Dispo: We will continue to follow the patient. Thank you for this consultative opportunity. Visit type - Emergency Visit Emergency Visit: Yes ED Registration Date: 07/06/16 Care time: The patient presented to the Emergency Department on the above date and was hospitalized for further evaluation of their emergent condition. - New Patient This patient is new to me today: Yes Date on this admission: 07/07/16 - Critical Care Critical Care patient: No
[2016-07-06] MEDS ORDERED: ZOLPIDEM TARTRATE 5 MG TABLET PO PRN (14:18)
--- NOTE | 2016-07-06 14:34 | PN ---
Teaching Attending Note Name of Resident: Jesus Saucedo ATTENDING PHYSICIAN STATEMENT I saw and evaluated the patient. I reviewed the resident's note and discussed the case with the resident. I agree with the resident's findings and plan as documented. SUBJECTIVE: Briefly, 61yo female with h/o multiple sclerosis, asthma, anxiety/depression, ulcerative colitis who presents after choking/coughing episode while taking a pill. Still short of breath with inhaled bronchodilators and IV medrol. CXRs have been clear. OBJECTIVE: Last Vital Signs Temp Pulse Resp BP Pulse Ox 98.6 F 106 H 18 135/75 92 L 07/06/16 14:28 07/06/16 14:28 07/06/16 14:28 07/06/16 14:28 07/06/16 11:30 Gen: NAD at rest Neck: no stridor Heart: RRR Lung: distant breath sounds Abd: soft, nontender Ext: no edema CBC, BMP 07/06/16 05:48 07/06/16 05:48 Active Medications Acetaminophen (Tylenol -) 650 mg PO Q4H PRN PRN Reason: FEVER OR PAIN Albuterol/Ipratropium (Duoneb -) 1 amp NEB QIDR DANTE Amitriptyline HCl (Elavil -) 100 mg PO HS DANTE Cholecalciferol (Vitamin D3 -) 2,000 unit PO DAILY DANTE Docusate Sodium (Colace -) 100 mg PO TID DANTE Emollient Ointment (Aquaphor -) 1 applic TP BID DANTE Enoxaparin Sodium (Lovenox -) 40 mg SQ DAILY DANTE Sodium Chloride (Normal Saline -) 1,000 mls @ 83 mls/hr IV ASDIR DANTE Methylprednisolone Sodium Succinate (Solu-Medrol -) 40 mg IVPB Q8H-IV DANTE Montelukast Sodium (Singulair -) 10 mg PO HS DANTE Non-Formulary Medication (Dalfampridine [Ampyra]) 10 mg PO BID DANTE Ondansetron HCl (Zofran Injection) 4 mg IVPB Q6H PRN PRN Reason: NAUSEA Zolpidem Tartrate (Ambien -) 10 mg PO HS PRN PRN Reason: INSOMNIA ASSESSMENT AND PLAN: Acute Bronchospasm vs Acute Asthma Exacerbation Multiple Sclerosis Anxiety/Depression Ulcerative Colitis - agree with medrol, can change to prednisone in AM - inhaled bronchodilators - O2 as needed - singulair - monitor NIF, LINN - should get outpt PFTs to assess baseline - DVT prophylaxis
[2016-07-06] MEDS: SODIUM CHLORIDE 1,000 ML IV SCH (15:00)
[2016-07-06] MEDS: methylPREDNISolone NA SUCC 40 MG/1 ML VIAL IVPB SCH (17:47)
[2016-07-06] MEDS: DOCUSATE SODIUM 100 MG CAPSULE (FP) PO SCH ×2 (17:47→21:17)
[2016-07-06] MEDS: MINERAL OIL/PET HY-PHL TOPICAL OINTMENT 454 GM JAR TP SCH ×2 (17:47→21:17)
[2016-07-06] MEDS: ALBUTEROL SO4 2.5/IPRATROPIUM 0.5 INH SOL 3 ML VIAL.NEB. NEB SCH ×2 (18:06→23:04)
[2016-07-06] MEDS: MONTELUKAST NA 10 MG TABLET PO SCH (21:19)
[2016-07-06] MEDS ORDERED: PATIENT'S OWN MEDICATION (NON-FORMULARY) (Dalfampridine [Ampyra] 10 MG) PO SCH (22:00)
[2016-07-06] MEDS ORDERED: ESZOPICLONE PO SCH (22:00)
[2016-07-06] MEDS ORDERED: AMITRIPTYLINE HCL 50 MG TABLET PO SCH (22:00)
[2016-07-07] MEDS: methylPREDNISolone NA SUCC 40 MG/1 ML VIAL IVPB SCH ×2 (01:44→10:25)
[2016-07-07] MEDS: DOCUSATE SODIUM 100 MG CAPSULE (FP) PO SCH ×3 (06:20→21:34)
[2016-07-07] MEDS: ALBUTEROL SO4 2.5/IPRATROPIUM 0.5 INH SOL 3 ML VIAL.NEB. NEB SCH ×4 (06:45→23:20)
[2016-07-07 07:11] LABS: BASOPHIL 0.2 % (0-2.0); EOSINOPHIL 0.1 % (0-4.5); MCH 29.8 pg (25.7-33.7); MCHC 34.5 g/dl (32.0-36.0); MEAN CELL VOLUME 86.4 fl (80-96); MEAN PLT VOLUME 7.4 fl (7.5-11.1); NEUTROPHILS 70.8 % (42.8-82.8); PLATELET COUNT 312 K/MM3 (134-434); RDW 13.5 % (11.6-15.6); WHITE BLOOD COUNT 8.9 K/mm3 (4.0-10.0)
[2016-07-07 07:34] LABS: ALBUMIN 3.3 g/dl (3.4-5.0); ANION GAP 12 (8-16); BILIRUBIN,TOTAL 0.4 mg/dL (0.2-1.0); CALCIUM 8.9 mg/dL (8.5-10.1); CO2 26 mmol/L (21-32); CREATININE 0.8 mg/dL (0.55-1.02); GLUCOSE,RANDOM 108 mg/dL (74-106); SGOT/AST 24 U/L (15-37); SGPT/ALT 44 U/L (12-78)
[2016-07-07 07:35] LABS: ALK PHOS 92 U/L (45-117)
--- NOTE | 2016-07-07 10:18 | PN ---
[id number]. States she is back at her baseline respiratory function and would like to go home. Denies chest pain, difficulty breathing or any other acute symptoms. OBJECTIVE: Vital Signs Period Temp Pulse Resp BP Sys/Sahni Pulse Ox Last 24 Hr 97.6 F-99.3 F 85-107 16-20 115-156/63-91 92-97 GENERAL: Awake, alert, and fully oriented, in no acute distress. Resting comfortably in bed. HEENT: Atraumatic, EOMI, PERRLA, No lymphadenopathy noted, moist membranes. No foreign objects noted in pharynx. LUNGS: Mildly diminished breath sounds bilateral lung guerrero. NO WHEEZING NOTED. HEART: Regular rate and rhythm, normal S1 and S2 without murmur, rub or gallop. ABDOMEN: Soft, nontender, not distended, normoactive bowel sounds EXTREMITIES: 2+ pulses, warm, well-perfused. No calf tenderness. Trace peripheral edema bilateral lower extremity NEUROLOGICAL: Cranial nerves II-XII intact. Normal speech. Gait not observed. PSYCHIATRIC: Cooperative. Good eye contact. Appropriate mood and affect. SKIN: Warm, dry, normal turgor, no rashes or lesions noted. Laboratory Results - last 24 hr 07/07/16 07/07/16 05:35 05:35 WBC 8.9 RBC 4.56 Hgb 13.6 D Hct 39.4 D MCV 86.4 MCHC 34.5 RDW 13.5 Plt Count 312 MPV 7.4 L Neutrophils % 70.8 D Lymphocytes % 21.0 D Monocytes % 7.9 Eosinophils % 0.1 D Basophils % 0.2 Sodium 145 Potassium 4.1 Chloride 107 Carbon Dioxide 26 Anion Gap 12 BUN 20 H D Creatinine 0.8 Creat Clearance w eGFR > 60 Random Glucose 108 H Calcium 8.9 Total Bilirubin 0.4 D AST 24 D ALT 44 Alkaline Phosphatase 92 Total Protein 6.0 L Albumin 3.3 L Active Medications Generic Name Dose Route Start Last Admin Trade Name Freq PRN Reason Stop Dose Admin Acetaminophen 650 mg 07/06/16 11:28 Tylenol - PO Q4H PRN FEVER OR PAIN Albuterol/Ipratropium 1 amp 07/06/16 13:19 07/07/16 06:45 Duoneb - NEB 1 amp QIDR DANTE Administration Amitriptyline HCl 100 mg 07/07/16 22:00 Elavil - PO HS DANTE Cholecalciferol 2,000 unit 07/07/16 10:00 Vitamin D3 - PO DAILY DANTE Docusate Sodium 100 mg 07/06/16 14:00 07/07/16 06:20 Colace - PO 100 mg TID DANTE Administration Emollient Ointment 1 applic 07/06/16 13:30 07/06/16 21:17 Aquaphor - TP 1 applic BID DANTE Administration Enoxaparin Sodium 40 mg 07/07/16 10:00 Lovenox - SQ DAILY DANTE Sodium Chloride 1,000 mls @ 83 mls/hr 07/06/16 11:30 07/06/16 15:00 Normal Saline - IV 83 mls/hr ASDIR DANTE Administration Methylprednisolone Sodium Succinate 40 mg 07/06/16 18:00 07/07/16 01:44 Solu-Medrol - IVPB Not Given Q8H-IV DANTE Montelukast Sodium 10 mg 07/06/16 22:00 07/06/16 21:19 Singulair - PO 10 mg HS DANTE Administration Non-Formulary Medication 10 mg 07/06/16 22:00 Dalfampridine [Ampyra] PO BID DANTE Ondansetron HCl 4 mg 07/06/16 11:28 Zofran Injection IVPB Q6H PRN NAUSEA Zolpidem Tartrate 10 mg 07/06/16 14:18 07/06/16 22:46 Ambien - PO 10 mg HS PRN Administration INSOMNIA ASSESSMENT/PLAN: 61 year old female with PMH of Asthma (20+ years, on Singulair & Advair), Former smoker, Multiple Sclerosis (waning exacerbations but steadily worsening last 5 years), Ulcerative Colitis & Anxiety/Depression who presented to ED this this morning for shortness of breath. #Cough/Shortness of breath, likely secondary to pill aspiration/progression of MS -Duonebs QIDR -can switch oral Prednisone -keep O2 sat >92% -Speech/Swallow eval noted -CXR this AM reviewed #MS -continue home meds: Dalfampridine -rest as above -PT #Asthma -unlikely patient is in actual exacerbation -reviewed NIF, VC (NIF -10, but patient states that is about her baseline) -continue home meds: Singulair -rest as above #Anxiety -continue home meds: Amitryptyline, Lunesta Dispo: Okay for discharge from pulmonary standpoint Visit type - Emergency Visit Emergency Visit: Yes ED Registration Date: 07/06/16 Care time: The patient presented to the Emergency Department on the above date and was hospitalized for further evaluation of their emergent condition. - New Patient This patient is new to me today: No - Critical Care Critical Care patient: No
[2016-07-07] MEDS: ENOXAPARIN NA (PORCINE) 40 MG/0.4 ML DISP.SYRIN SQ SCH (10:26)
[2016-07-07] MEDS: CHOLECALCIFEROL (VITAMIN D3) 400 UNIT TABLET (FP) PO SCH (10:28)
[2016-07-07] MEDS: MINERAL OIL/PET HY-PHL TOPICAL OINTMENT 454 GM JAR TP SCH ×2 (10:29→21:34)
[2016-07-07] MEDS: SODIUM CHLORIDE 1,000 ML IV SCH (12:00)
--- NOTE | 2016-07-07 14:42 | DS ---
Physical Exam: SUBJECTIVE: Patient seen and examined OBJECTIVE: Vital Signs Period Temp Pulse Resp BP Sys/Sahni Pulse Ox Last 24 Hr 97.6 F-99.3 F 96-106 18-20 108-147/63-91 92-92 PHYSICAL EXAM GENERAL: The patient is awake, alert, and fully oriented, in no acute distress. HEAD: Normal with no signs of trauma. EYES: PERRL, extraocular movements intact, sclera anicteric, conjunctiva clear. ENT: Ears normal, nares patent, oropharynx clear without exudates, moist mucous membranes. NECK: Trachea midline, full range of motion, supple. LUNGS: Breath sounds equal, clear to auscultation bilaterally, no wheezes, no crackles, no accessory muscle use. HEART: Regular rate and rhythm, S1, S2 without murmur, rub or gallop. ABDOMEN: Soft, nontender, nondistended, normoactive bowel sounds, no guarding, no rebound, no hepatosplenomegaly, no masses. EXTREMITIES: 2+ pulses, warm, well-perfused, no edema. NEUROLOGICAL: Cranial nerves II through XII grossly intact. Normal speech, gait not observed. PSYCH: Normal mood, normal affect. SKIN: Warm, dry, normal turgor, no rashes or lesions noted. LABS Laboratory Results - last 24 hr 07/07/16 07/07/16 05:35 05:35 WBC 8.9 RBC 4.56 Hgb 13.6 D Hct 39.4 D MCV 86.4 MCHC 34.5 RDW 13.5 Plt Count 312 MPV 7.4 L Neutrophils % 70.8 D Lymphocytes % 21.0 D Monocytes % 7.9 Eosinophils % 0.1 D Basophils % 0.2 Sodium 145 Potassium 4.1 Chloride 107 Carbon Dioxide 26 Anion Gap 12 BUN 20 H D Creatinine 0.8 Creat Clearance w eGFR > 60 Random Glucose 108 H Calcium 8.9 Total Bilirubin 0.4 D AST 24 D ALT 44 Alkaline Phosphatase 92 Total Protein 6.0 L Albumin 3.3 L HOSPITAL COURSE: Date of Admission:07/06/16 Date of Discharge: 07/07/16 This is a 61 year old female with PMH of Asthma (20+ years, on Singulair & Advair), former smoker, Multiple Sclerosis (waning exacerbations but steadily worsening last 5 years), Ulcerative Colitis & Anxiety/Depression who presented to ED this this morning for shortness of breath. Patient admitted to feeling short of breath after ingestion of a pill. She was treated with duonebs QIDR, IV steroids. Patient was evaluated for speech and swallow, unchanged since previous admission, recommended regular diet with thin liquids. Episode of cough/sob most likely secondary to pill aspiration vs progression of MS. CXR did not show evidence of pill at that time. Asthma medications continued throughout hospital stay, patient improved with steroids, sent home on short taper. Minutes to complete discharge: 35 Discharge Summary Reason For Visit: MULTIPLE SCLEROSIS,ASTHMA Current Active Problems Asthma (Acute) Asthma exacerbation (Acute) Multiple sclerosis (Chronic) Condition: Stable - Instructions Diet, Activity, Other Instructions: Mrs Rodriguez, you symptoms associated with your pill ingestion have greatly improved, you lung are clear. We would like you to continue to take steroid for a few more days due to your chronic lung history. Please take prednisone 40mg by mouth for two days. Then prednisone 20mg by mouth for two days. If you experience any worsening of symptoms, including fever, trouble breathing , please return to the emergency room. Disposition: HOME - Home Medications Comprehensive Discharge Medication List: Ambulatory Orders Montelukast Na [Singulair -] 10 mg PO HS 05/24/15 Amitriptyline HCl [Elavil -] 100 mg PO HS 05/26/15 Eszopiclone [Lunesta] 10 mg PO HS 10/18/15 Hydrochlorothiazide [Hctz -] 12.5 mg PO DAILY 10/18/15 Fluticasone/Salmeterol [Advair 250-50 Diskus] 1 each IH DAILY 11/19/15 Cholecalciferol (Vitamin D3) [Vitamin D -] 2,000 unit PO DAILY 07/06/16 Dalfampridine [Ampyra] 10 mg PO BID 07/06/16 Prednisone 10 mg PO DAILY #12 tablet 07/07/16 This patient is new to me today: Yes Date on this admission: 07/07/16 Emergency Visit: Yes ED Registration Date: 07/06/16 Care time: The patient presented to the Emergency Department on the above date and was hospitalized for further evaluation of their emergent condition. Critical Care patient: No - Discharge Referral Referred to [facility] Med P.C.: No
--- NOTE | 2016-07-07 15:45 | PN ---
Teaching Attending Note Name of Resident: Jesus Saucedo ATTENDING PHYSICIAN STATEMENT I saw and evaluated the patient. I reviewed the resident's note and discussed the case with the resident. I agree with the resident's findings and plan as documented. DR ARROYO
--- NOTE | 2016-07-07 18:47 | PN ---
Teaching Attending Note Name of Resident: Rebekah Stewart ATTENDING PHYSICIAN STATEMENT I saw and evaluated the patient. I reviewed the resident's note and discussed the case with the resident. I agree with the resident's findings and plan as documented. SUBJECTIVE: seen and evaluated at the bedside OBJECTIVE: resting comfortably, no wheezing ASSESSMENT AND PLAN: 61 year old woman with multiple sclerosis admitted for acute on chronic asthma exacerbation -today pt is breathing comfortably in no distress with no wheezing on exam -discussed with pulm team and it is agreed that pt will be discharged home on oral prednisone
[2016-07-07] MEDS: MONTELUKAST NA 10 MG TABLET PO SCH (21:35)
[2016-07-07] MEDS ORDERED: AMITRIPTYLINE HCL 25 MG TABLET (FP) PO SCH (22:00)
[2016-07-08] MEDS: ALBUTEROL SO4 2.5/IPRATROPIUM 0.5 INH SOL 3 ML VIAL.NEB. NEB SCH (05:13)
[2016-07-08] MEDS: DOCUSATE SODIUM 100 MG CAPSULE (FP) PO SCH (06:22)
[2016-07-08 07:06] VITALS: BP 135/78; PULSE 91; TEMP 97.6
[2016-07-08] MEDS: CHOLECALCIFEROL (VITAMIN D3) 400 UNIT TABLET (FP) PO SCH (09:47)
[2016-07-08] MEDS: ENOXAPARIN NA (PORCINE) 40 MG/0.4 ML DISP.SYRIN SQ SCH (09:52)
[2016-07-08] MEDS: MINERAL OIL/PET HY-PHL TOPICAL OINTMENT 454 GM JAR TP SCH (09:52)
[2016-07-08] MEDS ORDERED: methylPREDNISolone NA SUCC 40 MG/1 ML VIAL IVPB SCH (10:00)
== END 2016-07-08 10:35 | disposition home or self-care (01) ==
LOC: JER 05:11 → JERBED 09:10 → J5S 11:44
PROVIDERS: ADMIT Internal Medicine; ATTEND Internal Medicine
DX: J45.901 Unspecified asthma with (acute) exacerbation (principal); G35 Multiple sclerosis; K51.80 Other ulcerative colitis without complications; M48.00 Spinal stenosis, site unspecified; F41.8 Other specified anxiety disorders; E86.0 Dehydration; Z87.891 Personal history of nicotine dependence; Z74.01 Bed confinement status
CPT/HCPCS: 36415; 36600; 71010-TC; 80053; 81003; 82375; 82550; 82803; 83050; 83690; 83735; 84484; 85025; 85379; 85610; 87040; 87086; 93005; 93010; 94640; 94761; 97116-GP; 97161-GP; 99285-25; G0378

== ENCOUNTER 2016-10-01 22:12 | Emergency (ER) | payer OTHER ==
[2016-10-01 22:31] VITALS: BMI 35.4
--- NOTE | 2016-10-01 23:11 | PDOC ---
History of Present Illness - General History Source: Patient, Old Records Exam Limitations: No Limitations - History of Present Illness Initial Comments: 10/02/16 01:47 The patient is a 61 year old female brought via EMS, with a significant past medical history of asthma, colitis, proctitis and MS (wheelchair bound), who presents to the emergency department with back pain. She reports that she was at home and the pain started, prompting her to become anxious. She describes her back pain as ranging from mild to moderate, without radiation or modifying factors. Patient is wheelchair bound baseline due to her MS. She states that she does have an aide for roughly 12 hours a day. The patient denies chest pain, shortness of breath, headache and dizziness. Denies fever, chills, nausea, vomit, diarrhea and constipation. Denies dysuria, frequency, urgency and hematuria. Allergies: Tysabri, Levaquin Past surgical history: None reported Social history: Marijuana use. No alcohol or drug use reported <Colby Lenz - Last Filed: 10/02/16 01:47> <Darlin Herbert - Last Filed: 10/02/16 06:04> - General Chief Complaint: Back Pain Stated Complaint: BACK PAIN Time Seen by Provider: 10/01/16 22:47 Past History <Colby Lenz - Last Filed: 10/02/16 01:47> - Past Medical History Asthma: Yes GI Disorders: Yes (colitis, proctitis) - Immunization History Immunization Up to Date: Yes - Psycho/Social/Smoking Cessation Hx Anxiety: No Suicidal Ideation: No Smoking History: Never smoked Have you smoked in the past 12 months: No Number of Cigarettes Smoked Daily: 0 If you are a former smoker, when did you quit?: 29 YEARS AGO Information on smoking cessation initiated: No Hx Alcohol Use: No Drug/Substance Use Hx: No Substance Use Type: Marijuana Hx Substance Use Treatment: No <Darlin Herbert - Last Filed: 10/02/16 06:04> - Past Medical History Allergies/Adverse Reactions: Allergies Allergy/AdvReac Type Severity Reaction Status Date / Time levofloxacin [From Levaquin] Allergy Verified 10/01/16 22:30 natalizumab [From Tysabri] Allergy Verified 10/01/16 22:30 IV DYE Allergy Severe Difficulty Uncoded 10/01/16 22:30 Breathing Home Medications: Ambulatory Orders Montelukast Na [Singulair -] 10 mg PO HS 05/24/15 Amitriptyline HCl [Elavil -] 100 mg PO HS 05/26/15 Eszopiclone [Lunesta] 10 mg PO HS 10/18/15 Hydrochlorothiazide [Hctz -] 12.5 mg PO DAILY 10/18/15 Fluticasone/Salmeterol [Advair 250-50 Diskus] 1 each IH DAILY 11/19/15 Cholecalciferol (Vitamin D3) [Vitamin D -] 2,000 unit PO DAILY 07/06/16 Dalfampridine [Ampyra] 10 mg PO BID 07/06/16 Prednisone 10 mg PO DAILY #12 tablet 07/07/16 Review of Systems - Review of Systems Able to Perform ROS?: Yes Comments:: 10/02/16 01:47 GENERAL/CONSTITUTIONAL: No fever or chills. No weakness. HEAD, EYES, EARS, NOSE AND THROAT: No change in vision. No ear pain or discharge. No sore throat. CARDIOVASCULAR: No chest pain or shortness of breath RESPIRATORY: No cough, wheezing, or hemoptysis. GASTROINTESTINAL: No nausea, vomiting, diarrhea or constipation. GENITOURINARY: No dysuria, frequency, or change in urination. MUSCULOSKELETAL: (+) Back pain. No joint or muscle swelling or pain. No neck pain. SKIN: No rash NEUROLOGIC: No headache, vertigo, loss of consciousness, or change in strength/ sensation. ENDOCRINE: No increased thirst. No abnormal weight change HEMATOLOGIC/LYMPHATIC: No anemia, easy bleeding, or history of blood clots. ALLERGIC/IMMUNOLOGIC: No hives or skin allergy. <Colby Lenz - Last Filed: 10/02/16 01:47> *Physical Exam - Vital Signs Last Vital Signs Temp Pulse Resp BP Pulse Ox 97.6 F 91 H 20 138/84 96 10/01/16 22:30 10/01/16 22:30 10/01/16 22:30 10/01/16 22:30 10/01/16 22:30 - Physical Exam Comments: 10/02/16 01:47 GENERAL: Awake, alert, and fully oriented, in no acute distress HEAD: No signs of trauma, normocephalic, atraumatic EYES: PERRLA, EOMI, sclera anicteric, conjunctiva clear ENT: Auricles normal inspection, hearing grossly normal, nares patent, oropharynx clear without exudates. Moist mucosa NECK: Normal ROM, supple, no lymphadenopathy, JVD, or masses LUNGS: No distress, speaks full sentences, clear to auscultation bilaterally HEART: Regular rate and rhythm, normal S1 and S2, no murmurs, rubs or gallops, peripheral pulses normal and equal bilaterally. ABDOMEN: Soft, nontender, normoactive bowel sounds. No guarding, no rebound. No masses EXTREMITIES: Normal inspection, no edema. No clubbing or cyanosis. NEUROLOGICAL: Cranial nerves II through XII grossly intact. Normal speech. SKIN: Warm, Dry, normal turgor, no rashes or lesions noted. <Colby Lenz - Last Filed: 10/02/16 01:47> - Vital Signs Last Vital Signs Temp Pulse Resp BP Pulse Ox 97.6 F 91 H 20 138/84 96 10/01/16 22:30 10/01/16 22:30 10/01/16 22:30 10/01/16 22:30 10/01/16 22:30 <Darlin Herbert - Last Filed: 10/02/16 06:04> ED Treatment Course - LABORATORY CBC & Chemistry Diagram: 10/01/16 23:50 10/01/16 23:50 - ADDITIONAL ORDERS Additional order review: Laboratory Results 10/01/16 23:50 Sodium 143 Potassium 3.0 L D Chloride 104 Carbon Dioxide 26 Anion Gap 13 BUN 15 D Creatinine 0.7 Creat Clearance w eGFR > 60 Random Glucose 142 H D Calcium 8.9 Total Bilirubin 0.4 AST 30 D ALT 39 Alkaline Phosphatase 85 Creatine Kinase 60 Troponin I < 0.02 Total Protein 6.4 Albumin 3.5 10/01/16 23:50 RBC 4.84 MCV 86.9 MCHC 33.4 RDW 13.3 MPV 7.4 L Neutrophils % 64.1 Lymphocytes % 24.9 Monocytes % 7.3 Eosinophils % 2.8 D Basophils % 0.9 D <Colby Lenz - Last Filed: 10/02/16 01:47> - LABORATORY CBC & Chemistry Diagram: 10/01/16 23:50 10/01/16 23:50 <Darlin Herbert - Last Filed: 10/02/16 06:04> Medical Decision Making - Medical Decision Making 10/02/16 06:01 Pt has MS, and admits that she came to the ER for back pain which is in fact due to the fact that she is essentially bedridden with her progressive MS that has weakened her so that she sometimes has trouble breathing and often gets anxiety attacks, cries, and calls EMS. Pt;s labs show low K+. She will be repleted with K+ and Mg. She will be sent home with ambulance. Her blood sugar is 142, but she has no glc in her urine. She is stable for discharge. <Darlin Herbert - Last Filed: 10/02/16 06:04> *DC/Admit/Observation/Transfer - Attestations Scribe Attestion: 10/02/16 01:47 Documentation prepared by Colby Lenz, acting as medical secretary teacher for Darlin Herbert MD <Colby Lenz - Last Filed: 10/02/16 01:47> - Discharge Dispostion Admit: No <Darlin Herbert - Last Filed: 10/02/16 06:04> Diagnosis at time of Disposition: Anxiety, Hypokalemia - Discharge Dispostion Disposition: HOME Condition at time of disposition: Stable - Patient Instructions Printed Discharge Instructions: DI for Hypokalemia, Getting to the Heart of a Healthy Diet: Empty-Calorie Foods, Eating a Diet Moderate in Protein-Rich Foods , Eat a Diet Rich in Vitamin D
[2016-10-02 00:02] LABS: BASOPHIL 0.9 % (0-2.0); EOSINOPHIL 2.8 % (0-4.5); MCH 29.1 pg (25.7-33.7); MCHC 33.4 g/dl (32.0-36.0); MEAN CELL VOLUME 86.9 fl (80-96); MEAN PLT VOLUME 7.4 fl (7.5-11.1); NEUTROPHILS 64.1 % (42.8-82.8); PLATELET COUNT 325 K/MM3 (134-434); RDW 13.3 % (11.6-15.6); WHITE BLOOD COUNT 8.3 K/mm3 (4.0-10.0)
[2016-10-02 00:36] LABS: ALBUMIN 3.5 g/dl (3.4-5.0); ANION GAP 13 (8-16); BILIRUBIN,TOTAL 0.4 mg/dL (0.2-1.0); CALCIUM 8.9 mg/dL (8.5-10.1); CO2 26 mmol/L (21-32); COCKROFT - GAULT 122.3915; CREATININE 0.7 mg/dL (0.55-1.02); GLUCOSE,RANDOM 142 mg/dL (74-106); SGOT/AST 30 U/L (15-37); SGPT/ALT 39 U/L (12-78); TOT PROT 6.4 g/dl (6.4-8.2)
[2016-10-02 00:38] LABS: ALK PHOS 85 U/L (45-117)
[2016-10-02 01:01] LABS: TROPONIN I < 0.02 ng/ml (0.00-0.05)
[2016-10-02] MEDS ORDERED: MAGNESIUM SULF 50% (8.12 MEQ/2 ML-1 GM VIAL) IVPB ONE (01:30)
[2016-10-02] MEDS ORDERED: POTASSIUM CHLORIDE TABS 20 MEQ TABLET.ER (FP) PO ONE ×2 (01:30→01:56)
[2016-10-02] MEDS ORDERED: MAGNESIUM SULF 50% (8.12 MEQ/2 ML-1 GM VIAL) ONE (01:56)
[2016-10-02 02:09] LABS: URINE APPEARANCE CLEAR; URINE BILIRUBIN NEGATIVE (NEGATIVE); URINE BLOOD NEGATIVE (NEGATIVE); URINE COLOR YELLOW; URINE GLUCOSE (UA) NEGATIVE (NEGATIVE); URINE KETONE NEGATIVE (NEGATIVE); URINE LEUK ESTERASE NEGATIVE (NEGATIVE); URINE NITRITE NEGATIVE (NEGATIVE); URINE PROTEIN NEGATIVE (NEGATIVE); URINE UROBILINOGEN NEGATIVE E.U./dl (0.2-1.0)
[2016-10-02 02:45] VITALS: BP 130/76; PULSE 85; TEMP 97.9
== END 2016-10-02 02:46 | disposition home or self-care (01) ==
LOC: JER 22:12
PROC: 3E033GC Introduction of Other Therapeutic Substance into Peripheral Vein, Percutaneous Approach (ICD-10-PCS; principal; 2016-10-01)
DX: F41.9 Anxiety disorder, unspecified (principal); E87.6 Hypokalemia; J45.909 Unspecified asthma, uncomplicated; Z87.19 Personal history of other diseases of the digestive system; G35 Multiple sclerosis; R26.2 Difficulty in walking, not elsewhere classified; Z99.89 Dependence on other enabling machines and devices
CPT/HCPCS: 36415; 80053; 81003; 82550; 84484; 85025; 96374; 99281-25

== ENCOUNTER 2019-12-12 17:28 | Inpatient (IN) | payer OTHER ==
--- NOTE | 2019-12-12 18:33 | PDOC ---
History of Present Illness - General Chief Complaint: Diarrhea Stated Complaint: DEHYDRATION Time Seen by Provider: 12/12/19 17:35 - History of Present Illness Initial Comments: 64 YOF h/o ulcerative collitis, MS, and asthma, presents for diarrhea of 3 days duration. Per patients aide she has had 6-8 bouts of watery diarrhea per day. The diarrhea is noted to be foul smelling, it occurs throughout the day, the patient has not taken anything for it. Also mentions some abdominal distension. Also mentions there may have been some blood in her urine/ vaginal area which was thought to be secondary to the high frequency of cleaning of the area. Denies fever, chills, night sweats, nausea, vomtting or chest pain. Denies h/o abdominal surgery or recent contact with persons who have COVID. Constitutional: No Weight Change, No Fever, No Chills, No Night Sweats, No Fatigue, No Malaise ENT/Mouth: No Hearing Changes, No Ear Pain, No Nasal Congestion, No Sinus Pain, No Hoarseness, No sore throat, No Rhinorrhea, No Swallowing Difficulty Eyes: No Eye Pain, No Swelling, No Redness, No Foreign Body, No Discharge, No Vision Changes Cardiovascular: No Chest Pain, No SOB, No PND, No Dyspnea on Exertion, No Orthopnea, No Claudication, No Edema, No Palpitations Respiratory: No Cough, No Sputum, No Wheezing, No Smoke Exposure, No Dyspnea Gastrointestinal: No Nausea, No Vomiting, Endorses intermittent constipation, No Pain, No Heartburn, No Anorexia, No Dysphagia, No Hematochezia, No Melena, No Flatulence, No Jaundice Genitourinary: No Dysmenorrhea, No DUB, No Dyspareunia, No Dysuria, No Urinary Frequency, No Hematuria, No Urinary Incontinence, No Urgency, No Flank Pain, No Urinary Flow Changes, No Hesitancy Musculoskeletal: No Arthralgias, No Myalgias, No Joint Swelling, No Joint Stiffness, No Back Pain, No Neck Pain, No Injury History Skin: No Skin Lesions, No Pruritis, No Hair Changes, No Breast/Skin Changes, No Nipple Discharge Neuro: No Weakness, No Numbness, No Paresthesias, No Loss of Consciousness, No Syncope, No Dizziness, No Headache, No Coordination Changes, No Recent Falls Psych: No Anxiety/Panic, No Depression, No Insomnia, No Personality Changes, No Delusions, No Rumination, No SI/HI/AH/VH, No Social Issues, No Memory Changes, No Violence/Abuse Hx., No Eating Concerns Heme/Lymph: No Bruising, No Bleeding, No Transfusions History, No Lymphadenopathy Endocrine: No Polyuria, No Polydipsia, No Temperature Intolerance Past History - Medical History Allergies/Adverse Reactions: Allergies Allergy/AdvReac Type Severity Reaction Status Date / Time levofloxacin [From Levaquin] Allergy Verified 12/12/19 17:32 natalizumab [From Tysabri] Allergy Verified 12/12/19 17:32 IV DYE Allergy Severe Difficulty Uncoded 12/12/19 17:32 Breathing Home Medications: Ambulatory Orders Montelukast Na [Singulair -] 10 mg PO HS 05/24/15 Amitriptyline HCl [Elavil -] 100 mg PO HS 05/26/15 Eszopiclone [Lunesta] 10 mg PO HS 10/18/15 Fluticasone/Salmeterol [Advair 250-50 Diskus] 1 each IH DAILY 11/19/15 Cholecalciferol (Vitamin D3) [Vitamin D -] 2,000 unit PO DAILY 07/06/16 Prednisone 10 mg PO DAILY #12 tablet 07/07/16 Gabapentin 0 mg PO DAILY 12/12/19 Asthma: Yes COPD: No GI Disorders: Yes (colitis, proctitis) - Reproductive History Is Patient Now?: No - Immunization History Immunization Up to Date: Yes - Psycho-Social/Smoking History Smoking History: Never smoked Have you smoked in the past 12 months: No Number of Cigarettes Smoked Daily: 0 If you are a former smoker, when did you quit?: 29 YEARS AGO Information on smoking cessation initiated: No - Substance Abuse Hx (Audit-C & DAST Scrn) How often the patient has a drink containing alcohol: Never Score: In Men: 4 or > Positive; In Women: 3 or > Positive: 0 Screen Result (Pos requires Nsg. Audit-10AR): Negative In the last yr the pt used illegal drug/Rx for NonMed reason: No Score: Yes response is considered Positive: 0 Screen Result (Positive result requires Nsg. DAST-10): Negative *Physical Exam - Vital Signs Last Vital Signs Temp Pulse Resp BP Pulse Ox 97.4 F L 102 H 20 126/82 97 08/21/20 17:30 12/12/19 17:30 12/12/19 17:30 12/12/19 17:30 12/12/19 17:30 - Physical Exam General Appearance: Yes: Nourished, Obese HEENT: positive: EOMI, Normal ENT Inspection, Normal Voice, Symmetrical Neck: positive: Trachea midline, Normal Thyroid Respiratory/Chest: positive: Lungs Clear, Normal Breath Sounds Cardiovascular: positive: Regular Rhythm, Regular Rate, S1, S2 Female Pelvic Exam: positive: normal external exam Gastrointestinal/Abdominal: positive: Normal Bowel Sounds, Tender, Protuberent, Other (TTP in RLQ) Rectal Exam: positive: normal exam Musculoskeletal: positive: Normal Inspection Extremity: positive: Normal Capillary Refill, Normal Inspection Integumentary: positive: Normal Color, Dry, Warm Neurologic: positive: Fully Oriented, Alert, Normal Mood/Affect Medical Decision Making - Medical Decision Making 64 YOF h/o ulcerative collitis, MS, and asthma, presents for diarrhea of 3 days duration. Per patients aide she has had 6-8 bouts of watery diarrhea per day. The diarrhea is noted to be foul smelling, it occurs throughout the day, the patient has not taken anything for it. Also mentions some abdominal distension. Also mentions there may have been some blood in her urine/ vaginal area which was thought to be secondary to the high frequency of cleaning of the area. D enies fever, chills, night sweats, nausea, vomtting or chest pain. Denies h/o abdominal surgery or recent contact with persons who have COVID. On arrival patient HR was 102, vitals otherwise wnl. Physical exam reveals protuberant abdomen. ddx: gastroenteritis, toxic megacolon, diverticulitis, pseudomembranous colitis plan: CT abdomen and pelvis, FOBT, cbc, cmp, lactate, blood cultures, PT/INR, EKG, CXR reassess: and rectal exam wnl, patient has been signed out to night team 12/12/19 19:14 Discharge - Discharge Information Problems reviewed: Yes Clinical Impression/Diagnosis: Diarrhea - Follow up/Referral - Patient Discharge Instructions - Post Discharge Activity
[2019-12-12 19:16] LABS: INR 1.13 (0.83-1.09); PROTHROMBIN TIME (PATIENT) 13.3 SEC (9.7-13.0)
--- NOTE | 2019-12-12 19:17 | PDOC ---
*Physical Exam - Vital Signs Last Vital Signs Temp Pulse Resp BP Pulse Ox 97.4 F L 102 H 20 126/82 97 12/12/19 17:30 12/12/19 17:30 12/12/19 17:30 12/12/19 17:30 12/12/19 17:30 ED Treatment Course - LABORATORY CBC & Chemistry Diagram: 12/12/19 16:30 12/12/19 16:30 - ADDITIONAL ORDERS Additional order review: Laboratory Results 12/12/19 16:45 PT with INR 13.30 H INR 1.13 H Medical Decision Making - Medical Decision Making 12/12/19 19:17 EKG - sinus tachy cardia, HR 101, QTc 464, TWI V2-4, unchanged vs 2017 CXR - clear lung guerrero CT A/P - mild concentric sigmoid wall thickening w associated pericolonic edema consistent w acute colitis, moderate fecal retention, nonobstructing calculi in L renal pelvis, hyperdense fluid in gallbladder --- 64 YOF h/o ulcerative collitis, MS, and asthma, presenting w 3d foul smelling diarrhea, abd distension, mild lower abd pain. Denies fever, chills, night sweats, nausea, vomiting or chest pain Has inflammatory colitis/UC flare up. Last flare up >10yrs ago, not on steroids or maintenance meds Unlikely infectious (afebrile, wbc wnl) Low concern for ACS (neg trop) vs mesenteric ischemia (lactic <2). FOBT +, Hgb wnl, vitals stable Given 1L NS, tylenol, 60 solumedrol Admit m/s for inflammatory colitis, UC exacerbation 12/12/19 23:08 Discharge - Discharge Information Problems reviewed: Yes Clinical Impression/Diagnosis: Exacerbation of ulcerative colitis Qualifiers: Digestive disease complication type: without complication Qualified Code(s): K51.90 - Ulcerative colitis, unspecified, without complications Condition: Stable - Follow up/Referral Referrals: Jesus Jeff MD [Primary Care Provider] - - Patient Discharge Instructions - Post Discharge Activity
[2019-12-12 19:18] LABS: ACTIVATED PTT 36.6 SECONDS (25.2-36.5)
[2019-12-12 19:26] LABS: BASO % 0.7 % (0-2.0); EOS % 3.9 % (0-4.5); HEMATOCRIT 41.4 % (32.4-45.2); LYMPH % 23.1 % (8-40); MCH 29.7 pg (25.7-33.7); MCHC 33.7 g/dl (32.0-36.0); MEAN CELL VOLUME 88.2 fl (80-96); MEAN PLT VOLUME 7.3 fl (7.5-11.1); MONO % 13.3 % (3.8-10.2); PLATELET COUNT 305 K/MM3 (134-434); RDW 12.9 % (11.6-15.6); WHITE BLOOD COUNT 5.8 K/mm3 (4.0-10.0)
[2019-12-12 19:51] LABS: ALBUMIN 2.9 g/dl (3.4-5.0); BILIRUBIN,TOTAL 0.5 mg/dL (0.2-1); BLOOD UREA NITROGEN 16.1 mg/dL (7-18); CALCIUM 8.4 mg/dL (8.5-10.1); CREATININE 0.4 mg/dL (0.55-1.3); POTASSIUM 3.6 mmol/L (3.5-5.1); TOT PROT 5.8 g/dl (6.4-8.2)
--- NOTE | 2019-12-12 19:57 | PDOC ---
Documentation entered by Kavitha Lawrence SCRIBE, acting as scribe for Andrés Junior MD. Andrés Junior MD: This documentation has been prepared by the tinyibeHoward Ana, SCRIBE, under my direction and personally reviewed by me in its entirety. I confirm that the documentation accurately reflects all work, treatment, procedures, and medical decision making performed by me. Attending Attestation - Resident Resident Name: Raheel Cheng - ED Attending Attestation I have performed the following: I have examined & evaluated the patient, The case was reviewed & discussed with the resident, I agree w/resident's findings & plan, Exceptions are as noted - HPI HPI: 12/12/19 18:04 Patient is a 64 year old female with a significant past medical history of ulcerative collitis, MS, and asthma, who presents to the ED with diarrhea x3 days. Per patients aide, patient has been having about 6-8 watery, light brown, non bloody and foul smelling episodes of diarrhea per day. Aide also mentions some possible abdominal distention and blood in vaginal area that could be related to "over cleaning" the area. Pt denies abd pain or vaginal bleeding. Patient denies: night sweats, fever, chills, nausea, vomting, chest pain, SOB, headaches, focal weakness/numbness. Allergies: levofloxacin, natalizumab, IV DYE - Physicial Exam PE: 12/12/19 19:52 GENERAL: Awake, alert, and fully oriented, in no acute distress EYES: PERRLA, EOMI, sclera anicteric, conjunctiva clear ENT: Oropharynx clear without exudates. Moist mucosa NECK: Normal ROM, supple, no lymphadenopathy, JVD, or masses LUNGS: Breath sounds equal, clear to auscultation bilaterally. No wheezes, and no crackles HEART: Regular rate and rhythm, normal S1 and S2, no murmurs, rubs or gallops ABDOMEN: Distended, +diffuse mild ttp, no rebound or guarding EXTREMITIES: Normal range of motion, no edema. No clubbing or cyanosis. No cords, erythema, or tenderness NEUROLOGICAL: Normal speech, cranial nerves intact, equal strength and sensation b/l SKIN: Warm, Dry, normal turgor, no rashes or lesions noted. - Medical Decision Making 12/12/19 19:54 64yo F hx UC, asthma, MS presents to the ED with 3 days of diarrhea Vitals with mild tachycardia Exam with distention and diffuse abd ttp Rectal exam with no impaction, guaic pending brown non melenotic/bloody stool Pelvic by Dr. Cheng with no evidence of active bleeding DDx includes colitis vs diverticulitis vs SBO vs megacolon vs appendicitis vs cdiff (no recent abx) Plan for labs, UA, CTAP, reassess Discharge - Discharge Information Clinical Impression/Diagnosis: Diarrhea Qualifiers: Diarrhea type: unspecified type Qualified Code(s): R19.7 - Diarrhea, unspecified Condition: Stable - Follow up/Referral Referrals: Jesus Jeff MD [Primary Care Provider] - - Patient Discharge Instructions - Post Discharge Activity
[2019-12-12] MEDS ORDERED: SODIUM CHLORIDE 0.9% 500 ML INFUS.BAG IV ONE (23:00)
[2019-12-12] MEDS ORDERED: ACETAMINOPHEN 1000 MG/100 ML VIAL (NON FORMULARY) IVPB ONE (23:00)
[2019-12-12] MEDS ORDERED: methylPREDNISolone NA SUCC 40 MG/1 ML VIAL IVPUSH ONE (23:01)
--- NOTE | 2019-12-12 23:36 | PN ---
Teaching Attending Note Name of Resident: Edgardo Rendon ATTENDING PHYSICIAN STATEMENT I saw and evaluated the patient. I reviewed the resident's note and discussed the case with the resident. I agree with the resident's findings and plan as documented. SUBJECTIVE: Patient is a 64 year old woman with a PMH of Ulcerative collitis, Multiple sc lerosis and Asthma who presents to the ER with diarrhea of 3 days. Patient's Aide report she has had 6-8 bouts of watery diarrhea per day. The diarrhea is noted to be foul smelling, it occurs throughout the day and patient has not taken medication for it. There is associated abdominal distension and report of some blood in her urine/vaginal area which was thought to be secondary to the high frequency of cleaning of the area. Patient denies chest pain, shortness of breath, headache, palpitations, dizziness, fever, chills, nausea, vomiting, constipation, dysuria, frequency, urgency or melena. Denies alcohol, tobacco or illicit drug use. No sick contacts or recent travels. Family history is unremarkable. OBJECTIVE: Alert Vital Signs Period Temp Pulse Resp BP Sys/Sahni Pulse Ox Last 24 Hr 97.4 F-97.8 F 102-103 20 126-131/71-82 94-97 HEENT: No Jaundice, eye redness or discharge, PERRLA, EOMI. Normocephalic, atraumatic. External ears are normal and hearing is grossly intact. No nasal discharge. Neck: Supple, nontender. No palpable adenopathy or thyromegaly. No JVD Chest: Good effort. Clear to auscultation and percussion. Heart: Regular. No S3, rub or murmur Abdomen: Not distended, soft, nontender and no HSM. No rebound or guarding. Normal bowel sounds. Ext: Peripheral pulses intact. No leg edema. Skin: Warm and dry. No petechiae, rash or ecchymosis. Neuro: Alert. Oriented x3. CN 2-12 grossly intact. Sensation grossly intact in all four extremities and DTR are symmetric. Psych: Appropriate mood and affect. Good insight. Home Medications Medication Instructions Recorded Montelukast Na [Singulair -] 10 mg PO HS 05/24/15 Amitriptyline HCl [Elavil -] 100 mg PO HS 05/26/15 Eszopiclone [Lunesta] 10 mg PO HS 10/18/15 Fluticasone/Salmeterol [Advair 1 each IH DAILY 11/19/15 250-50 Diskus] Cholecalciferol (Vitamin D3) 2,000 unit PO DAILY 07/06/16 [Vitamin D -] Prednisone 10 mg PO DAILY #12 tablet 07/07/16 Gabapentin 0 mg PO DAILY 12/12/19 Abnormal Lab Results 12/12/19 12/12/19 12/12/19 16:30 16:30 16:45 MPV 7.3 L Monocytes % 13.3 H D PT with INR 13.30 H INR 1.13 H PTT (Actin FS) 36.6 H Chloride 111 H Creatinine 0.4 L Calcium 8.4 L Total Protein 5.8 L Albumin 2.9 L Lipase 61 L ASSESSMENT AND PLAN: 1. Sigmoid colitis/?Ulcerative colitis flare-up CT abdomen/pelvis with out contrast shows evidence of sigmoid colitis, multiple kidney stones and moderate fecal retention. CXR shows cardiomegaly with no evidence of acute lung disease. Stool guaiac was positive. ER staff prescribed Tylenol, Solumedrol 60 mg and IV NS for the patient. EKG shows NSR at /minute and QTc with no ischemic ST-T wave changes. Not significantly changed compared to prior EKG. No old EKG available for comparison. Initial troponin is negative. Will avoid drugs that may prolong QTc. Will get urinalysis stat, C-reactive protein, fecal calprotectin level, treat with Solumedrol 20 mg q 8 hours, IV Protonix, IV Ceftriaxone, IV Flagyl and consult GI and ID. Will send stool for culture, Ova&Parasites, C. Difficile toxin and Novovirus if diarrhea persists. Will continue comprehensive care for all of patients comorbid conditions. 2. Hypoalbuminemia - Possibly due to combined effects of malnutrition and inflammation associated with comorbid conditions. Will ensure adequate dietary protein intake and also consult mate ship. Urinalysis pending. 3. Obesity Counseled on the risks associated with obesity. Will provide patient all the necessary assistance, counseling and positive reinforcement to facilitate weight loss. Consult mate ship. 4. DVT prophylaxis - SCD. 5. Advance directives - Full code
[2019-12-12] MEDS ORDERED: ACETAMINOPHEN INJECTION 100 ML IVPB ONE (23:58)
[2019-12-12] MEDS ORDERED: methylPREDNISolone NA SUCC 40 MG/1 ML VIAL ONE (23:59)
[2019-12-13 08:55] LABS: BASO % 0.2 % (0-2.0); EOS % 0.1 % (0-4.5); HEMATOCRIT 39.6 % (32.4-45.2); HEMOGLOBIN 13.3 GM/dL (10.7-15.3); LYMPH % 22.2 % (8-40); MCH 28.9 pg (25.7-33.7); MCHC 33.5 g/dl (32.0-36.0); MEAN CELL VOLUME 86.2 fl (80-96); MEAN PLT VOLUME 6.9 fl (7.5-11.1); MONO % 1.2 % (3.8-10.2); NEUT % 76.3 % (42.8-82.8); PLATELET COUNT 320 K/MM3 (134-434); RDW 12.6 % (11.6-15.6); WHITE BLOOD COUNT 4.3 K/mm3 (4.0-10.0)
[2019-12-13 09:19] LABS: ALBUMIN 2.8 g/dl (3.4-5.0); BILIRUBIN,TOTAL 0.4 mg/dL (0.2-1); BLOOD UREA NITROGEN 11.3 mg/dL (7-18); CALCIUM 8.3 mg/dL (8.5-10.1); CREATININE 0.3 mg/dL (0.55-1.3); POTASSIUM 3.8 mmol/L (3.5-5.1); TOT PROT 5.9 g/dl (6.4-8.2)
[2019-12-13] MEDS: DEXTROSE 5%-0.45% SALINE 1,000 ML IV SCH ×2 (09:20→21:33)
[2019-12-13] MEDS: methylPREDNISolone NA SUCC 40 MG/1 ML VIAL IVPUSH SCH ×2 (09:21→17:12)
[2019-12-13] MEDS: HEPARIN NA (PORCINE) 5,000 UNITS/ML 1ML VIAL SQ SCH ×2 (09:23→21:33)
--- NOTE | 2019-12-13 10:02 | CON.GI ---
Consult Consult Specialty:: GI: For Dr. Villar. Drs. Villar/Landen resume care 12/14 Referred by:: Hospitalist Service Reason for Consultation:: Diarrhea - History of Present Illness Chief Complaint: Diarrhea x 4 days History of Present Illness: 64F admitted through [facility] ER for evaluation of diarrhea. Describes 4 days of watery, non-bloody diarrhea, some lower abdominal cramping. 1 month prior noted constipation, which she treated with dulcolax, glycerin suppositories. Has history of ulcerative colitis and has had colonoscopies with Dr. Villar, the last she recalls being about 5 years ago and believes that her colon "looked OK". She does not recall the extent of her colitis but does remember possibly being treated with sulfasalazine for some time. CT scan in the ED revealed mild concentric wall thickening along the sigmoid with mild stranding raising the question of possible colitis. There was retained stool noted throughout the remainder of the colon. No diarrhea today. last watery BM was last night in ED. No fevers/chills reported. Normal WBC's on admission labs and noted guaiac positive from specimen sent from ER. No recent antibiotic use. No recent travel or sick contacts. No family history of colorectal cancer or IBD. 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 Pulmonary: Yes: Asthma Gastrointestinal: Yes: Ulcerative Colitis ...: No - Past Surgical History Past Surgical History: Yes: None Additional Surgical History: Denies - Alcohol/Substance Use Hx Alcohol Use: Yes (Former) History of Substance Use: reports: Marijuana - Smoking History Smoking history: Former smoker Have you smoked in the past 12 months: No Aproximately how many cigarettes per day: 0 If you are a former smoker, when did you quit?: 29 YEARS AGO - Social History Usual Living Arrangement: With Significant Other ADL: Independent Occupation: Disabled Place of : [facility] History of Recent Travel: No Home Medications - Allergies Allergies/Adverse Reactions: Allergies Allergy/AdvReac Type Severity Reaction Status Date / Time levofloxacin [From Levaquin] Allergy Verified 12/12/19 17:32 natalizumab [From Tysabri] Allergy Verified 12/12/19 17:32 IV DYE Allergy Severe Difficulty Uncoded 12/12/19 17:32 Breathing - Home Medications Home Medications: Ambulatory Orders Montelukast Na [Singulair -] 10 mg PO HS 05/24/15 Amitriptyline HCl [Elavil -] 100 mg PO HS 05/26/15 Eszopiclone [Lunesta] 10 mg PO HS 10/18/15 Fluticasone/Salmeterol [Advair 250-50 Diskus] 1 each IH DAILY 11/19/15 Cholecalciferol (Vitamin D3) [Vitamin D -] 2,000 unit PO DAILY 07/06/16 Prednisone 10 mg PO DAILY #12 tablet 07/07/16 Gabapentin 0 mg PO DAILY 12/12/19 Family Medical History Family Hx Cancer: Grandfather (maternal) (Liver cancer), Mother (Liver cancer) Other Family History: 1 brother: obesity, otherwise healthy. 1 daughter: healthy. No family history of colorectal cancer Review of Systems - Review of Systems Constitutional: denies: Chills Cardiovascular: denies: Chest Pain Respiratory: denies: Cough Gastrointestinal: denies: Abdominal Pain Genitourinary: reports: Hematuria Physical Exam-GI Vital Signs: Vital Signs Temperature 97.4 F L 12/13/19 04:26 Pulse Rate 94 H 12/13/19 04:26 Respiratory Rate 18 12/13/19 05:07 Blood Pressure 148/87 12/13/19 04:26 O2 Sat by Pulse Oximetry (%) 95 12/13/19 05:07 Constitutional: Yes: Calm Eyes: No: Sclera Icterus Cardiovascular: Yes: Regular Rate and Rhythm. No: Murmur Respiratory: Yes: CTA Bilaterally Gastrointestinal Inspection: No: Distention, Scars ...Auscultate: Yes: Normoactive Bowel Sounds ...Palpate: Yes: Soft, Tenderness (Mild suprapubic TTP) ...Percussion: No: Tympanitic ...Rectal Exam: Yes: Other (Concrete Pipe Maker present: No external lesions, no masses, soft formed stool in rectal vault guaiac tracely positive.) Edema: No (No LE edema) Neurological: Yes: Alert Labs: CBC, BMP 12/13/19 08:44 12/13/19 08:44 INR, PTT INR 1.13 (0.83-1.09) H 12/12/19 16:45 Problem List - Problems (1) Colitis Assessment/Plan: Unclear if symptoms reflect a colitis flare / sigmoiditis or paradoxical diarrhea from constipation. A mild ischemic colitis preceipitated by constipation would also be considered given distribution of the possible colitis. Advise: Stool for C. Diff, Culture if diarrhea persists Otherwise plan for colonoscopy Sunday for further intraluminal evaluation and to investigate finding of persistent guaiac positive stool. Discussed ptoential risks of the procedure with Ms. Rodriguez like but not limited to bleeding, perforation requiring surgery to repair, infection, sedation medication effects all of whcih could be potentially life threatening. She has agreed to the procedure. Code(s): K52.9 - NONINFECTIVE GASTROENTERITIS AND COLITIS, UNSPECIFIED
[2019-12-13] MEDS ORDERED: PEG 3350/NA SULF BICARB CL/KCL 4000 ML SOLN.RECON PO ONE (10:45)
[2019-12-13] MEDS ORDERED: PT OWN MED DRAWER 7, Y5N ONE ×2 (11:41→12:38)
[2019-12-13] MEDS: BUDESONIDE/FORMETEROL FUMARATE 80/4.5 mcg INHALER IH SCH ×2 (12:58→21:34)
[2019-12-13] MEDS: ONDANSETRON 4 MG/2 ML VIAL IVPUSH PRN (18:47)
--- NOTE | 2019-12-13 20:41 | HP ---
Admitting History and Physical - Admission History of Present Illness: Patient is a 64 year old female with a significant past medical history of ulcerative collitis, MS, and asthma, who presents to the ED with diarrhea x3 days. Per patients aide, patient has been having about 6-8 watery, light brown, non bloody and foul smelling episodes of diarrhea per day. Aide also mentions some possible abdominal distention. 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 Pulmonary: Yes: Asthma Gastrointestinal: Yes: Ulcerative Colitis ...: No - Past Surgical History Past Surgical History: Yes: None - Advance Directives Advance Directives: Yes: Health Care Proxy - Smoking History Smoking history: Former smoker Have you smoked in the past 12 months: No Aproximately how many cigarettes per day: 0 If you are a former smoker, when did you quit?: 29 YEARS AGO - Alcohol/Substance Use Hx Alcohol Use: Yes (Former) History of Substance Use: reports: Marijuana - Social History ADL: Independent Occupation: Disabled History of Recent Travel: No Home Medications - Allergies Allergies/Adverse Reactions: Allergies Allergy/AdvReac Type Severity Reaction Status Date / Time polyethylene glycol Allergy Intermediate Verified 12/15/19 11:58 [From Golytely] polyethylene glycol 3350 Allergy Intermediate Verified 12/15/19 11:58 [From Golytely] potassium chloride* Allergy Intermediate Verified 12/15/19 11:58 [From Golytely] sodium [From Golytely] Allergy Intermediate Verified 12/15/19 11:58 sodium bicarbonate Allergy Intermediate Verified 12/15/19 11:58 [From Golytely] sodium chloride Allergy Intermediate Verified 12/15/19 11:58 [From Golytely] sodium sulfate Allergy Intermediate Verified 12/15/19 11:58 [From Golytely] levofloxacin [From Levaquin] Allergy Verified 12/12/19 17:32 natalizumab [From Tysabri] Allergy Verified 12/12/19 17:32 IV DYE Allergy Severe Difficulty Uncoded 12/12/19 17:32 Breathing - Home Medications Home Medications: Ambulatory Orders Montelukast Na [Singulair -] 10 mg PO HS 05/24/15 Amitriptyline HCl [Elavil -] 100 mg PO HS 05/26/15 Eszopiclone [Lunesta] 3 mg PO HS 10/18/15 Fluticasone/Salmeterol [Advair 250-50 Diskus] 1 each IH DAILY 11/19/15 Cholecalciferol (Vitamin D3) [Vitamin D -] 2,000 unit PO DAILY 07/06/16 Gabapentin 0 mg PO DAILY 12/12/19 Mesalamine [Lialda] 1.2 gm PO DAILY #90 gm 12/19/19 Family Medical History Family History: Unremarkable Family Hx Cancer: Grandfather (maternal) (Liver cancer), Mother (Liver cancer) Other Family History: 1 brother: obesity, otherwise healthy. 1 daughter: healthy. No family history of colorectal cancer Review of Systems - Review of Systems Constitutional: reports: No Symptoms Eyes: reports: No Symptoms HENT: reports: No Symptoms Neck: reports: No Symptoms Cardiovascular: reports: No Symptoms Respiratory: reports: No Symptoms Physical Examination Vital Signs: Vital Signs Temperature 97.7 F 12/13/19 17:38 Pulse Rate 99 H 12/13/19 17:38 Respiratory Rate 20 12/13/19 17:38 Blood Pressure 129/83 12/13/19 17:38 O2 Sat by Pulse Oximetry (%) 95 12/13/19 17:38 Eyes: Yes: WNL HENT: Yes: WNL Neck: Yes: WNL, Supple Cardiovascular: Yes: WNL, Regular Rate and Rhythm Respiratory: Yes: WNL, Regular, CTA Bilaterally Gastrointestinal: Yes: WNL, Normal Bowel Sounds, Soft Extremities: Yes: WNL Edema: No Neurological: Yes: WNL, Alert, Oriented Labs: CBC, BMP 12/13/19 08:44 12/13/19 08:44 Problem List - Problems (1) Colitis Code(s): K52.9 - NONINFECTIVE GASTROENTERITIS AND COLITIS, UNSPECIFIED (2) Functional quadriplegia Code(s): R53.2 - FUNCTIONAL QUADRIPLEGIA (3) Multiple sclerosis Code(s): G35 - MULTIPLE SCLEROSIS
[2019-12-13 21:21] LABS: URINE APPEARANCE CLEAR; URINE BILIRUBIN NEGATIVE (NEGATIVE); URINE COLOR YELLOW; URINE GLUCOSE (UA) TRACE (NEGATIVE); URINE KETONE 3+ (NEGATIVE); URINE LEUK ESTERASE NEGATIVE (NEGATIVE); URINE NITRITE NEGATIVE (NEGATIVE); URINE PROTEIN TRACE (NEGATIVE)
[2019-12-13] MEDS: MONTELUKAST NA 10 MG TABLET PO SCH (21:33)
[2019-12-13] MEDS: AMITRIPTYLINE HCL 25 MG TABLET PO SCH (21:33)
[2019-12-13] MEDS ORDERED: AMITRIPTYLINE HCL 50 MG TABLET PO SCH (22:00)
[2019-12-14] MEDS: methylPREDNISolone NA SUCC 40 MG/1 ML VIAL IVPUSH SCH ×3 (01:50→17:15)
[2019-12-14] MEDS: DEXTROSE 5%-0.45% SALINE 1,000 ML IV SCH ×2 (10:08→22:51)
[2019-12-14] MEDS: HEPARIN NA (PORCINE) 5,000 UNITS/ML 1ML VIAL SQ SCH ×2 (10:10→21:14)
[2019-12-14] MEDS: BUDESONIDE/FORMETEROL FUMARATE 80/4.5 mcg INHALER IH SCH ×2 (10:11→21:15)
[2019-12-14] MEDS ORDERED: PEG 3350/NA SULF BICARB CL/KCL 4000 ML SOLN.RECON PO ONE ×3 (11:30→15:00)
[2019-12-14] MEDS ORDERED: BISACODYL 5 MG TABLET.DR (FP) PO ONE (14:00)
[2019-12-14 14:38] VITALS: BMI 25.0
[2019-12-14] MEDS ORDERED: diphenhydrAMINE HCL 25 MG CAPSULE (FP) PO ONE (18:45)
[2019-12-14] MEDS ORDERED: PT OWN MED DRAWER 7, Y5N ONE ×2 (20:35→21:13)
[2019-12-14] MEDS: AMITRIPTYLINE HCL 25 MG TABLET PO SCH (21:12)
[2019-12-14] MEDS: MONTELUKAST NA 10 MG TABLET PO SCH (21:14)
--- NOTE | 2019-12-14 22:14 | PN ---
Progress Note, Physician History of Present Illness: Pt seen at 3:30pm and was asypmtomatic - Current Medication List Current Medications: Active Medications Amitriptyline HCl (Elavil -) 100 mg PO [facility] Last Admin: 12/14/19 21:12 Dose: 100 mg Documented by: Budesonide/Formoterol Fumarate (Symbicort 80/4.5mcg -) 2 puff IH BID [facility] Last Admin: 12/14/19 21:15 Dose: 2 puff Documented by: Heparin Sodium (Porcine) (Heparin -) 5,000 unit SQ BID [facility] Last Admin: 12/14/19 21:14 Dose: 5,000 unit Documented by: Dextrose/Sodium Chloride (D5-1/2ns -) 1,000 mls @ 75 mls/hr IV ASDIR [facility] Last Admin: 12/14/19 10:08 Dose: 75 mls/hr Documented by: Montelukast Sodium (Singulair -) 10 mg PO [facility] Last Admin: 12/14/19 21:14 Dose: 10 mg Documented by: Ondansetron HCl (Zofran Injection) 4 mg IVPUSH Q6H PRN PRN Reason: NAUSEA AND/OR VOMITING Last Admin: 12/13/19 18:47 Dose: 4 mg Documented by: - Objective Vital Signs: Vital Signs Temperature 98.3 F 12/14/19 21:09 Pulse Rate 91 H 12/14/19 21:09 Respiratory Rate 18 12/14/19 21:09 Blood Pressure 131/70 12/14/19 21:09 O2 Sat by Pulse Oximetry (%) 94 L 12/14/19 21:09 Neck: Yes: WNL, Supple Cardiovascular: Yes: WNL, Regular Rate and Rhythm Respiratory: Yes: WNL, Regular, CTA Bilaterally Gastrointestinal: Yes: WNL, Normal Bowel Sounds, Soft, Abdomen, Obese Labs: CBC, BMP 12/13/19 08:44 12/13/19 08:44 INR, PTT INR 1.13 (0.83-1.09) H 12/12/19 16:45 Problem List - Problems (1) Colitis Assessment/Plan: Pt scheduled for colonscopy in am H/O Ulcerative colitis Monitor electrolytes Code(s): K52.9 - NONINFECTIVE GASTROENTERITIS AND COLITIS, UNSPECIFIED (2) Asthma Assessment/Plan: Cont symbicort Code(s): J45.909 - UNSPECIFIED ASTHMA, UNCOMPLICATED Qualifiers: Asthma severity: unspecified severity Asthma complication type: with acute exacerbation Qualified Code(s): J45.901 - Unspecified asthma with (acute) exacerbation (3) Multiple sclerosis Code(s): G35 - MULTIPLE SCLEROSIS
[2019-12-15 10:33] LABS: BASO % 0.1 % (0-2.0); EOS % 0.1 % (0-4.5); HEMATOCRIT 40.8 % (32.4-45.2); HEMOGLOBIN 13.7 GM/dL (10.7-15.3); LYMPH % 25.8 % (8-40); MCH 29.3 pg (25.7-33.7); MCHC 33.7 g/dl (32.0-36.0); MEAN PLT VOLUME 7.4 fl (7.5-11.1); MONO % 11.3 % (3.8-10.2); NEUT % 62.7 % (42.8-82.8); PLATELET COUNT 337 K/MM3 (134-434); RBC 4.69 M/mm3 (3.60-5.2); RDW 12.5 % (11.6-15.6); WHITE BLOOD COUNT 8.3 K/mm3 (4.0-10.0)
[2019-12-15 11:04] LABS: ALBUMIN 2.8 g/dl (3.4-5.0); BLOOD UREA NITROGEN 6.2 mg/dL (7-18); POTASSIUM 3.4 mmol/L (3.5-5.1)
[2019-12-15] MEDS: HEPARIN NA (PORCINE) 5,000 UNITS/ML 1ML VIAL SQ SCH ×2 (11:11→21:22)
[2019-12-15] MEDS: BUDESONIDE/FORMETEROL FUMARATE 80/4.5 mcg INHALER IH SCH ×2 (11:11→21:23)
[2019-12-15 11:31] LABS: BILIRUBIN,TOTAL 0.5 mg/dL (0.2-1); CALCIUM 8.9 mg/dL (8.5-10.1); CREATININE 0.5 mg/dL (0.55-1.3); TOT PROT 5.7 g/dl (6.4-8.2)
--- NOTE | 2019-12-15 11:32 | PN.GI ---
GI Progress Note Subjective: GI NOte: Colonoscopy cancelled as Elana broke out in a facial and chest rash and began to feel " drugged"l during Golytely prep of which she drank only 1/2 of the total volume. She no longer feels drugged but has a residual facial and chest erythema. No itchiness. No dyspnea. - Objective Vital Signs: Vital Signs Temperature 98.0 F 12/15/19 06:07 Pulse Rate 91 H 12/15/19 06:07 Respiratory Rate 18 12/15/19 06:07 Blood Pressure 127/69 12/15/19 06:07 O2 Sat by Pulse Oximetry (%) 94 L 12/15/19 06:07 Laboratory Tests 12/12/19 12/13/19 12/15/19 16:30 03:30 09:50 WBC 5.8 8.3 Neutrophils % 59.0 62.7 Monocytes % 13.3 H D 11.3 H D Eosinophils % 3.9 D 0.1 Albumin COVID-19 (KATHERINE) Not detected 12/15/19 09:50 WBC Neutrophils % Monocytes % Eosinophils % Albumin 2.8 L COVID-19 (KATHERINE) Constitutional: Anxious Eyes: Yes: Conjunctiva Clear HENT: Yes: Other (upper cheek erythema) Cardiovascular: Yes: Regular Rate and Rhythm Respiratory: Yes: CTA Bilaterally ...Auscultate: Yes: Hypoactive Bowel Sounds ...Palpate: Yes: Soft, Other (nontender) Integumentary: Yes: Other (upper chest erythema) Labs: CBC, BMP 12/15/19 09:50 12/15/19 09:50 INR, PTT INR 1.13 (0.83-1.09) H 12/12/19 16:45 Assessment/Plan Impression: - Golytely prep terminated when Elana developed a possible allergic rash reaction. She does not use Miralax chronically. Colonoscopy postponed and deferred until 12/16 to allow 2 days prep given her stool load and inability to use polyethylene glycol. Need to exclude a fare of ulcerative colitis and she is also due for dysplasia surveillance. Plan: - Leanne followed by Sharmila today and tomorrow while on a liquid diet - Colonoscopy on 12/16 Problem List - Problems (1) Exacerbation of ulcerative colitis Code(s): K51.90 - ULCERATIVE COLITIS, UNSPECIFIED, WITHOUT COMPLICATIONS Qualifiers: Digestive disease complication type: without complication Qualified Code (s): K51.90 - Ulcerative colitis, unspecified, without complications (2) Asthma Code(s): J45.909 - UNSPECIFIED ASTHMA, UNCOMPLICATED Qualifiers: Asthma severity: unspecified severity Asthma complication type: with acute exacerbation Qualified Code(s): J45.901 - Unspecified asthma with (acute) exacerbation (3) Chronic constipation Code(s): K59.09 - OTHER CONSTIPATION (4) Multiple sclerosis Code(s): G35 - MULTIPLE SCLEROSIS
[2019-12-15] MEDS ORDERED: MAGNESIUM CITRATE 300 ML BOTTLE PO ONE (11:55)
[2019-12-15] MEDS: DEXTROSE 5%-0.45% SALINE 1,000 ML IV SCH (13:25)
[2019-12-15] MEDS: ONDANSETRON 4 MG/2 ML VIAL IVPUSH PRN (13:27)
[2019-12-15] MEDS ORDERED: BISACODYL 5 MG TABLET.DR (FP) PO ONE (20:00)
[2019-12-15] MEDS ORDERED: PT OWN MED DRAWER 7, Y5N ONE (21:15)
[2019-12-15] MEDS: AMITRIPTYLINE HCL 25 MG TABLET PO SCH (21:22)
[2019-12-15] MEDS: MONTELUKAST NA 10 MG TABLET PO SCH (21:22)
--- NOTE | 2019-12-15 21:45 | PN ---
Progress Note, Physician History of Present Illness: No new complaints - Current Medication List Current Medications: Active Medications Amitriptyline HCl (Elavil -) 100 mg PO HS [facility] Last Admin: 12/15/19 21:22 Dose: 100 mg Documented by: Bisacodyl (Dulcolax -) 20 mg PO ONCE ONE Stop: 12/16/19 18:01 Budesonide/Formoterol Fumarate (Symbicort 80/4.5mcg -) 2 puff IH BID [facility] Last Admin: 12/15/19 21:23 Dose: 2 puff Documented by: Heparin Sodium (Porcine) (Heparin -) 5,000 unit SQ BID [facility] Last Admin: 12/15/19 21:22 Dose: 5,000 unit Documented by: Dextrose/Sodium Chloride (D5-1/2ns -) 1,000 mls @ 75 mls/hr IV ASDIR [facility] Last Admin: 12/15/19 13:25 Dose: 75 mls/hr Documented by: Magnesium Citrate (Citroma -) 300 ml PO ONCE ONE Stop: 12/16/19 09:01 Montelukast Sodium (Singulair -) 10 mg PO [facility] Last Admin: 12/15/19 21:22 Dose: 10 mg Documented by: Ondansetron HCl (Zofran Injection) 4 mg IVPUSH Q6H PRN PRN Reason: NAUSEA AND/OR VOMITING Last Admin: 12/15/19 13:27 Dose: 4 mg Documented by: - Objective Vital Signs: Vital Signs Temperature 98.3 F 12/15/19 18:00 Pulse Rate 88 12/15/19 18:00 Respiratory Rate 18 12/15/19 18:00 Blood Pressure 129/76 12/15/19 18:00 O2 Sat by Pulse Oximetry (%) 93 L 12/15/19 18:00 Cardiovascular: Yes: WNL, Regular Rate and Rhythm Respiratory: Yes: WNL, Regular, CTA Bilaterally Gastrointestinal: Yes: WNL, Normal Bowel Sounds, Soft Labs: CBC, BMP 12/15/19 09:50 12/15/19 09:50 INR, PTT INR 1.13 (0.83-1.09) H 12/12/19 16:45 Problem List - Problems (1) Colitis Code(s): K52.9 - NONINFECTIVE GASTROENTERITIS AND COLITIS, UNSPECIFIED (2) Asthma Code(s): J45.909 - UNSPECIFIED ASTHMA, UNCOMPLICATED Qualifiers: Asthma severity: unspecified severity Asthma complication type: with acute exacerbation (3) Multiple sclerosis Code(s): G35 - MULTIPLE SCLEROSIS (4) Functional quadriplegia Code(s): R53.2 - FUNCTIONAL QUADRIPLEGIA
--- NOTE | 2019-12-15 22:00 | EKG ---
Test Reason : Blood Pressure : / mmHG Vent. Rate : 101 BPM Atrial Rate : 101 BPM P-R Int : 138 ms QRS Dur : 116 ms QT Int : 358 ms P-R-T Axes : 049 -02 027 degrees QTc Int : 464 ms SINUS TACHYCARDIA INCOMPLETE RIGHT BUNDLE BRANCH BLOCK ABNORMAL ECG WHEN COMPARED WITH ECG OF 06-JUL-2016 06:21, VENT. RATE HAS INCREASED Confirmed by JAD CHAVEZ MD ([id number]) on 12/15/2019 10:00:13 PM Referred By: Confirmed By:JAD CHAVEZ MD
[2019-12-16] MEDS: DEXTROSE 5%-0.45% SALINE 1,000 ML IV SCH ×3 (02:25→20:29)
[2019-12-16 08:59] LABS: BASO % 0.2 % (0-2.0); EOS % 2.2 % (0-4.5); HEMATOCRIT 39.3 % (32.4-45.2); HEMOGLOBIN 13.3 GM/dL (10.7-15.3); MCH 29.3 pg (25.7-33.7); MCHC 33.8 g/dl (32.0-36.0); MEAN CELL VOLUME 86.8 fl (80-96); MEAN PLT VOLUME 7.1 fl (7.5-11.1); MONO % 12.8 % (3.8-10.2); NEUT % 50.8 % (42.8-82.8); PLATELET COUNT 355 K/MM3 (134-434); RBC 4.53 M/mm3 (3.60-5.2); RDW 12.7 % (11.6-15.6); WHITE BLOOD COUNT 8.2 K/mm3 (4.0-10.0)
[2019-12-16] MEDS ORDERED: MAGNESIUM CITRATE 300 ML BOTTLE PO ONE (09:00)
[2019-12-16 09:28] LABS: ALBUMIN 2.6 g/dl (3.4-5.0); BILIRUBIN,TOTAL 0.3 mg/dL (0.2-1); BLOOD UREA NITROGEN 4.2 mg/dL (7-18); CALCIUM 8.1 mg/dL (8.5-10.1); CREATININE 0.4 mg/dL (0.55-1.3); TOT PROT 5.4 g/dl (6.4-8.2)
[2019-12-16 09:37] LABS: POTASSIUM 2.9 mmol/L (3.5-5.1)
[2019-12-16] MEDS: HEPARIN NA (PORCINE) 5,000 UNITS/ML 1ML VIAL SQ SCH (10:29)
[2019-12-16] MEDS: BUDESONIDE/FORMETEROL FUMARATE 80/4.5 mcg INHALER IH SCH ×2 (10:31→21:28)
[2019-12-16 10:33] LABS: ANISOCYTOSIS 0; MACROCYTOSIS 0; PLATELET ESTIMATE NORMAL
[2019-12-16] MEDS: KCL 10 MEQ IVPB 10 MEQ/100 ML INFUS.BAG IVPB SCH ×3 (13:42→17:22)
[2019-12-16] MEDS: PREGABALIN 25 MG CAPSULE PO SCH ×2 (15:16→21:28)
[2019-12-16] MEDS ORDERED: BISACODYL 5 MG TABLET.DR (FP) PO ONE (18:00)
--- NOTE | 2019-12-16 18:29 | PN ---
Progress Note, Physician History of Present Illness: no complaints - Current Medication List Current Medications: Active Medications Amitriptyline HCl (Elavil -) 100 mg PO [facility] Last Admin: 12/15/19 21:22 Dose: 100 mg Documented by: Budesonide/Formoterol Fumarate (Symbicort 80/4.5mcg -) 2 puff IH BID [facility] Last Admin: 12/16/19 10:31 Dose: 2 puff Documented by: Heparin Sodium (Porcine) (Heparin -) 5,000 unit SQ BID [facility] Last Admin: 12/16/19 10:29 Dose: 5,000 unit Documented by: Dextrose/Sodium Chloride (D5-1/2ns -) 1,000 mls @ 75 mls/hr IV ASDIR [facility] Last Admin: 12/16/19 10:29 Dose: Not Given Documented by: Montelukast Sodium (Singulair -) 10 mg PO HS [facility] Last Admin: 12/15/19 21:22 Dose: 10 mg Documented by: Ondansetron HCl (Zofran Injection) 4 mg IVPUSH Q6H PRN PRN Reason: NAUSEA AND/OR VOMITING Last Admin: 12/15/19 13:27 Dose: 4 mg Documented by: Pregabalin (Lyrica -) 25 mg PO BID [facility] Last Admin: 12/16/19 15:16 Dose: 25 mg Documented by: - Objective Vital Signs: Vital Signs Temperature 98.4 F 12/16/19 14:00 Pulse Rate 93 H 12/16/19 14:00 Respiratory Rate 18 12/16/19 14:00 Blood Pressure 126/66 12/16/19 14:00 O2 Sat by Pulse Oximetry (%) 94 L 12/16/19 14:00 Constitutional: Yes: No Distress HENT: Yes: Atraumatic Neck: Yes: Supple Cardiovascular: Yes: Regular Rate and Rhythm Respiratory: Yes: CTA Bilaterally Gastrointestinal: Yes: Normal Bowel Sounds Extremities: Yes: WNL Edema: No Neurological: Yes: Alert, Oriented Labs: CBC, BMP 12/16/19 08:30 12/16/19 08:30 INR, PTT INR 1.13 (0.83-1.09) H 12/12/19 16:45 Problem List - Problems (1) Exacerbation of ulcerative colitis Assessment/Plan: for colonoscopy tomorrow Code(s): K51.90 - ULCERATIVE COLITIS, UNSPECIFIED, WITHOUT COMPLICATIONS Qualifiers: Digestive disease complication type: without complication Qualified Code(s): K51.90 - Ulcerative colitis, unspecified, without complications (2) Anxiety Code(s): F41.9 - ANXIETY DISORDER, UNSPECIFIED (3) Asthma Assessment/Plan: on inhaler/meds Code(s): J45.909 - UNSPECIFIED ASTHMA, UNCOMPLICATED Qualifiers: Asthma severity: unspecified severity Asthma complication type: with acute exacerbation Qualified Code(s): J45.901 - Unspecified asthma with (acute) exacerbation (4) Hypokalemia Assessment/Plan: getting replaced Code(s): E87.6 - HYPOKALEMIA (5) Multiple sclerosis Code(s): G35 - MULTIPLE SCLEROSIS Assessment/Plan FOR DR ARIANE TRAN
--- NOTE | 2019-12-16 19:22 | PN.GI ---
GI Progress Note Subjective: Gi NOte: Struggling with 2nd bottle of Citroma but stool is not yet clear so has encouraged her to finish it. Rash has resolved. K has been replaced earlier - Objective Vital Signs: Vital Signs Temperature 98.4 F 12/16/19 14:00 Pulse Rate 93 H 12/16/19 14:00 Respiratory Rate 18 12/16/19 14:00 Blood Pressure 126/66 12/16/19 14:00 O2 Sat by Pulse Oximetry (%) 94 L 12/16/19 14:00 Laboratory Tests 12/16/19 12/16/19 08:30 08:30 WBC 8.2 Potassium 2.9 L* BUN 4.2 L Creatinine 0.4 L Constitutional: No Distress ...Auscultate: Yes: Normoactive Bowel Sounds ...Palpate: Yes: Soft, Other (nontender) Labs: CBC, BMP 12/16/19 08:30 12/16/19 08:30 INR, PTT INR 1.13 (0.83-1.09) H 12/12/19 16:45 Assessment/Plan Impression: - Citroma prep curtailed by Elana. Encouraged to complete it as I fear this will still not be enough to clear her. Need to exclude a flare of ulcerative col itis and she is also due for dysplasia surveillance. Plan: - Resume Citroma followed by Sharmila today - Colonoscopy on 12/16 Problem List - Problems (1) Exacerbation of ulcerative colitis Code(s): K51.90 - ULCERATIVE COLITIS, UNSPECIFIED, WITHOUT COMPLICATIONS Qualifiers: Digestive disease complication type: without complication Qualified Code(s): K51.90 - Ulcerative colitis, unspecified, without complications (2) Asthma Code(s): J45.909 - UNSPECIFIED ASTHMA, UNCOMPLICATED Qualifiers: Asthma severity: unspecified severity Asthma complication type: with acute exacerbation Qualified Code(s): J45.901 - Unspecified asthma with (acute) exacerbation (3) Chronic constipation Code(s): K59.09 - OTHER CONSTIPATION (4) Multiple sclerosis Code(s): G35 - MULTIPLE SCLEROSIS
[2019-12-16] MEDS: MONTELUKAST NA 10 MG TABLET PO SCH (21:28)
[2019-12-16] MEDS: AMITRIPTYLINE HCL 25 MG TABLET PO SCH (21:28)
[2019-12-17] MEDS: DEXTROSE 5%-0.45% SALINE 1,000 ML IV SCH ×3 (07:59→13:30)
[2019-12-17 09:17] LABS: BASO % 0.3 % (0-2.0); EOS % 4.9 % (0-4.5); HEMATOCRIT 41.8 % (32.4-45.2); HEMOGLOBIN 14.1 GM/dL (10.7-15.3); LYMPH % 34.3 % (8-40); MCH 29.6 pg (25.7-33.7); MCHC 33.7 g/dl (32.0-36.0); MEAN CELL VOLUME 87.9 fl (80-96); MEAN PLT VOLUME 7.1 fl (7.5-11.1); NEUT % 51.5 % (42.8-82.8); PLATELET COUNT 314 K/MM3 (134-434); RBC 4.76 M/mm3 (3.60-5.2); RDW 12.8 % (11.6-15.6); WHITE BLOOD COUNT 10.2 K/mm3 (4.0-10.0)
[2019-12-17 09:33] LABS: ALBUMIN 2.6 g/dl (3.4-5.0); BILIRUBIN,TOTAL 0.3 mg/dL (0.2-1); CALCIUM 8.4 mg/dL (8.5-10.1); CREATININE 0.5 mg/dL (0.55-1.3); POTASSIUM 3.3 mmol/L (3.5-5.1); TOT PROT 5.6 g/dl (6.4-8.2)
[2019-12-17] MEDS: PREGABALIN 25 MG CAPSULE PO SCH ×2 (09:46→21:54)
[2019-12-17 09:47] LABS: BLOOD UREA NITROGEN 2.6 mg/dL (7-18)
[2019-12-17] MEDS: BUDESONIDE/FORMETEROL FUMARATE 80/4.5 mcg INHALER IH SCH ×2 (09:56→21:55)
[2019-12-17 10:27] LABS: ANISOCYTOSIS 0; MACROCYTOSIS 0; PLATELET ESTIMATE NORMAL
--- NOTE | 2019-12-17 13:07 | PN ---
Progress Note (short form) - Note Progress Note: GI Procedure NOte: Please see colonoscopy report. Unable to complete the sturdy due to an acute colon angulation. Will pursue gastrograffin enema as this could be a malignancy. This study will determine whether or not to repeat a colonoscopy on Sunday. Continue clear liquids Problem List - Problems (1) Exacerbation of ulcerative colitis Code(s): K51.90 - ULCERATIVE COLITIS, UNSPECIFIED, WITHOUT COMPLICATIONS Qualifiers: Digestive disease complication type: without complication Qualified Code(s): K51.90 - Ulcerative colitis, unspecified, without complications (2) Asthma Code(s): J45.909 - UNSPECIFIED ASTHMA, UNCOMPLICATED Qualifiers: Asthma severity: unspecified severity Asthma complication type: with acute exacerbation Qualified Code(s): J45.901 - Unspecified asthma with (acute) exacerbation (3) Chronic constipation Code(s): K59.09 - OTHER CONSTIPATION (4) Multiple sclerosis Code(s): G35 - MULTIPLE SCLEROSIS
[2019-12-17] MEDS: KCL 10 MEQ IVPB 10 MEQ/100 ML INFUS.BAG IVPB SCH (18:40)
--- NOTE | 2019-12-17 20:34 | PN ---
Progress Note, Physician History of Present Illness: Pt refusing K replacement Colonoscopy unable to be completed - Current Medication List Current Medications: Active Medications Amitriptyline HCl (Elavil -) 100 mg PO [facility] Last Admin: 12/16/19 21:28 Dose: 100 mg Documented by: Budesonide/Formoterol Fumarate (Symbicort 80/4.5mcg -) 2 puff IH BID [facility] Last Admin: 12/17/19 09:56 Dose: 2 puff Documented by: Heparin Sodium (Porcine) (Heparin -) 5,000 unit SQ BID [facility] Last Admin: 12/16/19 10:29 Dose: 5,000 unit Documented by: Dextrose/Sodium Chloride (D5-1/2ns -) 1,000 mls @ 75 mls/hr IV ASDIR [facility] Last Admin: 12/17/19 13:30 Dose: 75 mls/hr Documented by: Montelukast Sodium (Singulair -) 10 mg PO [facility] Last Admin: 12/16/19 21:28 Dose: 10 mg Documented by: Ondansetron HCl (Zofran Injection) 4 mg IVPUSH Q6H PRN PRN Reason: NAUSEA AND/OR VOMITING Last Admin: 12/15/19 13:27 Dose: 4 mg Documented by: Pregabalin (Lyrica -) 25 mg PO BID [facility] Last Admin: 12/17/19 09:46 Dose: Not Given Documented by: - Objective Vital Signs: Vital Signs Temperature 98.4 F 12/17/19 18:00 Pulse Rate 90 12/17/19 18:00 Respiratory Rate 18 12/17/19 18:00 Blood Pressure 140/81 12/17/19 18:00 O2 Sat by Pulse Oximetry (%) 96 12/17/19 18:00 Cardiovascular: Yes: WNL, Regular Rate and Rhythm Respiratory: Yes: WNL, Regular, CTA Bilaterally Gastrointestinal: Yes: WNL, Normal Bowel Sounds, Soft Labs: CBC, BMP 12/17/19 08:45 12/17/19 08:45 INR, PTT INR 1.13 (0.83-1.09) H 12/12/19 16:45 Problem List - Problems (1) Colitis Assessment/Plan: Colonoscopy unable to be completed Barium enema Possible colonoscopy on Sun H/O Ulcerative colitis Monitor electrolytes Code(s): K52.9 - NONINFECTIVE GASTROENTERITIS AND COLITIS, UNSPECIFIED (2) Asthma Assessment/Plan: Cont symbicort Code(s): J45.909 - UNSPECIFIED ASTHMA, UNCOMPLICATED Qualifiers: Asthma severity: unspecified severity Asthma complication type: with acute exacerbation (3) Multiple sclerosis Code(s): G35 - MULTIPLE SCLEROSIS
[2019-12-17] MEDS ORDERED: PT OWN MED DRAWER 7, Y5N ONE (21:51)
[2019-12-17] MEDS: MONTELUKAST NA 10 MG TABLET PO SCH (21:54)
[2019-12-17] MEDS: HEPARIN NA (PORCINE) 5,000 UNITS/ML 1ML VIAL SQ SCH (21:55)
[2019-12-17] MEDS: AMITRIPTYLINE HCL 25 MG TABLET PO SCH (21:55)
[2019-12-18] MEDS: DEXTROSE 5%-0.45% SALINE 1,000 ML IV SCH ×2 (03:00→09:51)
[2019-12-18 08:27] LABS: BASO % 0.4 % (0-2.0); EOS % 4.7 % (0-4.5); HEMATOCRIT 43.8 % (32.4-45.2); HEMOGLOBIN 14.5 GM/dL (10.7-15.3); LYMPH % 25.1 % (8-40); MCH 29.3 pg (25.7-33.7); MEAN CELL VOLUME 88.9 fl (80-96); MEAN PLT VOLUME 6.9 fl (7.5-11.1); MONO % 7.6 % (3.8-10.2); NEUT % 62.2 % (42.8-82.8); PLATELET COUNT 313 K/MM3 (134-434); RBC 4.93 M/mm3 (3.60-5.2); RDW 12.8 % (11.6-15.6); WHITE BLOOD COUNT 11.9 K/mm3 (4.0-10.0)
[2019-12-18 09:07] LABS: ALBUMIN 2.7 g/dl (3.4-5.0); BILIRUBIN,TOTAL 0.3 mg/dL (0.2-1); BLOOD UREA NITROGEN 4.6 mg/dL (7-18); CALCIUM 8.1 mg/dL (8.5-10.1); CREATININE 0.5 mg/dL (0.55-1.3); POTASSIUM 3.2 mmol/L (3.5-5.1); TOT PROT 5.8 g/dl (6.4-8.2)
[2019-12-18 09:37] LABS: ANISOCYTOSIS 0; MACROCYTOSIS 0; PLATELET ESTIMATE NORMAL
[2019-12-18] MEDS: BUDESONIDE/FORMETEROL FUMARATE 80/4.5 mcg INHALER IH SCH ×2 (09:51→21:56)
[2019-12-18] MEDS: HEPARIN NA (PORCINE) 5,000 UNITS/ML 1ML VIAL SQ SCH ×2 (10:00→21:54)
[2019-12-18] MEDS: PREGABALIN 25 MG CAPSULE PO SCH ×2 (10:57→21:54)
--- NOTE | 2019-12-18 14:08 | CONSULT ---
Consult Consult Specialty:: Nephrology Reason for Consultation:: hypokalemia - History of Present Illness Chief Complaint: diarrhea History of Present Illness: Pt is a 64 year old female with pmhx of ulcerative colitis, multiple sclerosis, and asthma who presents with three days of foul smelling diarrhea. She was found to be hypokalemic and I was called to evaluate her. She denies chest pain or palpitations. She denies history of hypokalemia. She denies dysuria or hematuia. She denies shortness of breath. - History Source History Provided By: Patient - Past Medical History MANAGER ACQUISITION: Yes: Multiple Sclerosis Pulmonary: Yes: Asthma Gastrointestinal: Yes: Ulcerative Colitis ...: No - Past Surgical History Past Surgical History: Yes: None Additional Surgical History: Denies - Alcohol/Substance Use Hx Alcohol Use: Yes (Former) History of Substance Use: reports: Marijuana - Smoking History Smoking history: Former smoker Have you smoked in the past 12 months: No Aproximately how many cigarettes per day: 0 If you are a former smoker, when did you quit?: 29 YEARS AGO - Social History Usual Living Arrangement: With Significant Other ADL: Independent Occupation: Disabled History of Recent Travel: No Home Medications - Allergies Allergies/Adverse Reactions: Allergies Allergy/AdvReac Type Severity Reaction Status Date / Time polyethylene glycol Allergy Intermediate Verified 12/15/19 11:58 [From Golytely] polyethylene glycol 3350 Allergy Intermediate Verified 12/15/19 11:58 [From Golytely] potassium chloride* Allergy Intermediate Verified 12/15/19 11:58 [From Golytely] sodium [From Golytely] Allergy Intermediate Verified 12/15/19 11:58 sodium bicarbonate Allergy Intermediate Verified 12/15/19 11:58 [From Golytely] sodium chloride Allergy Intermediate Verified 12/15/19 11:58 [From Golytely] sodium sulfate Allergy Intermediate Verified 12/15/19 11:58 [From Golytely] levofloxacin [From Levaquin] Allergy Verified 12/12/19 17:32 natalizumab [From Tysabri] Allergy Verified 12/12/19 17:32 IV DYE Allergy Severe Difficulty Uncoded 12/12/19 17:32 Breathing - Home Medications Home Medications: Ambulatory Orders Montelukast Na [Singulair -] 10 mg PO HS 05/24/15 Amitriptyline HCl [Elavil -] 100 mg PO HS 05/26/15 Eszopiclone [Lunesta] 3 mg PO HS 10/18/15 Fluticasone/Salmeterol [Advair 250-50 Diskus] 1 each IH DAILY 11/19/15 Cholecalciferol (Vitamin D3) [Vitamin D -] 2,000 unit PO DAILY 07/06/16 Prednisone 10 mg PO DAILY #12 tablet 07/07/16 Gabapentin 0 mg PO DAILY 12/12/19 Family Medical History Family Hx Cancer: Grandfather (maternal) (Liver cancer), Mother (Liver cancer) Other Family History: 1 brother: obesity, otherwise healthy. 1 daughter: healthy. No family history of colorectal cancer Review of Systems - Review of Systems Constitutional: reports: Weakness Eyes: reports: No Symptoms HENT: reports: No Symptoms Neck: reports: No Symptoms Cardiovascular: reports: No Symptoms Respiratory: reports: No Symptoms Gastrointestinal: reports: Diarrhea Genitourinary: reports: No Symptoms Musculoskeletal: reports: No Symptoms Integumentary: reports: No Symptoms Neurological: reports: No Symptoms Endocrine: reports: No Symptoms Hematology/Lymphatic: reports: No Symptoms Psychiatric: reports: No Symptoms Physical Exam Vital Signs: Vital Signs Temperature 98.0 F 12/18/19 06:00 Pulse Rate 85 12/18/19 06:00 Respiratory Rate 18 12/18/19 06:00 Blood Pressure 159/74 12/18/19 06:00 O2 Sat by Pulse Oximetry (%) 94 L 12/18/19 06:00 Constitutional: Yes: Calm Eyes: Yes: Conjunctiva Clear HENT: Yes: Atraumatic Cardiovascular: Yes: S1, S2 Gastrointestinal: Yes: Soft Renal/: Yes: Incontinence Edema: Yes Edema: LLE: 1+, RLE: 1+ Neurological: Yes: Oriented, Pre-Existing Deficit Labs: CBC, BMP 12/18/19 07:43 12/18/19 07:43 Imaging - Results Cat Scan: Report Reviewed Assessment/Plan Current Medications Generic Name Dose Route Start Last Admin Trade Name Freq PRN Reason Stop Dose Admin Amitriptyline HCl 100 mg 12/13/19 22:00 12/17/19 21:55 Elavil - PO 100 mg HS DANTE Administration Budesonide/Formoterol Fumarate 2 puff 12/13/19 10:00 12/18/19 09:51 Symbicort 80/4.5mcg - IH 2 puff BID [facility] Administration Heparin Sodium (Porcine) 5,000 unit 12/13/19 10:00 12/18/19 10:00 Heparin - SQ Not Given BID [facility] Dextrose/Sodium Chloride 1,000 mls @ 75 mls/hr 12/13/19 08:00 12/18/19 09:51 D5-1/2ns - IV Not Given ASDIR DANTE Montelukast Sodium 10 mg 12/13/19 22:00 12/17/19 21:54 Singulair - PO 10 mg HS DANTE Administration Ondansetron HCl 4 mg 12/13/19 17:50 12/15/19 13:27 Zofran Injection IVPUSH 4 mg Q6H PRN Administration NAUSEA AND/OR VOMITING Pregabalin 25 mg 12/16/19 15:00 12/18/19 10:57 Lyrica - PO Not Given BID [facility] Laboratory Tests 12/12/19 12/16/19 12/17/19 19:00 08:30 08:45 Sodium Potassium 2.9 L* 3.3 L BUN Creatinine Urine Protein Trace Urine Ketones 3+ H Urine Blood Negative 12/18/19 07:43 Sodium 142 Potassium 3.2 L BUN 4.6 L Creatinine 0.5 L Urine Protein Urine Ketones Urine Blood Impression 1. hypokalemia 2. ulcerative colitis 3. multile sclerosis 4. asthma 5. diarrhea Plan - replace potassium po as she can not tolerated k rider - will add potassium to fluids - cont hydration - repeat labs in am - encourage po intake - check mag level, if mag level low replace iv as it may worsen diarrhea
[2019-12-18] MEDS ORDERED: POTASSIUM CHLORIDE TABS 20 MEQ TABLET.ER (FP) PO ONE ×2 (14:09→22:00)
[2019-12-18] MEDS: SODIUM CHLORIDE 0.45%/POT 20 MEQ/1,000 ML INFUS.BAG IV SCH (15:31)
--- NOTE | 2019-12-18 17:45 | PN ---
Progress Note, Physician History of Present Illness: no complaints - Current Medication List Current Medications: Active Medications Amino Acids (Prosource No Carb Liquid Pkt) 30 ml PO BID@0800,1730 [facility] Amitriptyline HCl (Elavil -) 100 mg PO [facility] Last Admin: 12/17/19 21:55 Dose: 100 mg Documented by: Budesonide/Formoterol Fumarate (Symbicort 80/4.5mcg -) 2 puff IH BID [facility] Last Admin: 12/18/19 09:51 Dose: 2 puff Documented by: Heparin Sodium (Porcine) (Heparin -) 5,000 unit SQ BID [facility] Last Admin: 12/18/19 10:00 Dose: Not Given Documented by: Potassium Chloride/Sodium Chloride (1/2ns+20meq Kcl) 20 meq in 1,000 mls @ 50 mls/hr IV ASDIR [facility] Last Admin: 12/18/19 15:31 Dose: 50 mls/hr Documented by: Montelukast Sodium (Singulair -) 10 mg PO [facility] Last Admin: 12/17/19 21:54 Dose: 10 mg Documented by: Ondansetron HCl (Zofran Injection) 4 mg IVPUSH Q6H PRN PRN Reason: NAUSEA AND/OR VOMITING Last Admin: 12/15/19 13:27 Dose: 4 mg Documented by: Pregabalin (Lyrica -) 25 mg PO BID [facility] Last Admin: 12/18/19 10:57 Dose: Not Given Documented by: - Objective Vital Signs: Vital Signs Temperature 97.8 F 12/18/19 14:03 Pulse Rate 89 12/18/19 14:03 Respiratory Rate 20 12/18/19 14:03 Blood Pressure 126/65 12/18/19 14:03 O2 Sat by Pulse Oximetry (%) 98 12/18/19 14:03 Constitutional: Yes: No Distress HENT: Yes: Atraumatic Neck: Yes: Supple Cardiovascular: Yes: Regular Rate and Rhythm Respiratory: Yes: CTA Bilaterally Gastrointestinal: Yes: Normal Bowel Sounds Extremities: Yes: WNL Edema: LLE: Trace Neurological: Yes: Alert, Oriented Labs: CBC, BMP 12/18/19 07:43 12/18/19 07:43 INR, PTT INR 1.13 (0.83-1.09) H 12/12/19 16:45 Problem List - Problems (1) Exacerbation of ulcerative colitis Assessment/Plan: had a colonoscopy doing well Code(s): K51.90 - ULCERATIVE COLITIS, UNSPECIFIED, WITHOUT COMPLICATIONS Qualifiers: Digestive disease complication type: without complication Qualified Code(s): K51.90 - Ulcerative colitis, unspecified, without complications (2) Anxiety Code(s): F41.9 - ANXIETY DISORDER, UNSPECIFIED (3) Asthma Assessment/Plan: on inhaler/meds Code(s): J45.909 - UNSPECIFIED ASTHMA, UNCOMPLICATED Qualifiers: Asthma severity: unspecified severity Asthma complication type: with acute exacerbation (4) Hypokalemia Assessment/Plan: getting replaced Code(s): E87.6 - HYPOKALEMIA (5) Multiple sclerosis Code(s): G35 - MULTIPLE SCLEROSIS Assessment/Plan FOR DR ARIANE TRAN
--- NOTE | 2019-12-18 17:50 | PATH ---
Surgical Pathology Report Patient Name: DORIAN LAI [facility]. Rec. #: [id number] /Age/Gender: 1955 (Age: 64) / F Account: [id number] Location: [address] [place] [address] Taken: 12/17/2019 Received: 12/17/2019 Reported: 12/18/2019 Physicians: Kellen Schuster M.D. Specimen(s) Received A: AT 75 CM B: AT 65 CM C: AT 50 CM D: AT 35 CM E: AT 20 CM F: STRICTURE AT 15CM G: RECTUM Clinical History Flare of ulcerative colitis, screening Postoperative diagnosis: Rectal stricture, chronic colitis Final Diagnosis A. COLON, AT 75 CM, BIOPSY: COLONIC MUCOSA WITH MODERATE CHRONIC ACTIVE COLITIS. B. COLON, AT 65 CM, BIOPSY: COLONIC MUCOSA WITH SEVERE CHRONIC ACTIVE COLITIS AND ASSOCIATED ULCERATION. C. COLON, AT 50 CM, BIOPSY: COLONIC MUCOSA WITH SEVERE CHRONIC ACTIVE COLITIS WITH ASSOCIATED ULCERATION. D. COLON, AT 35 CM, BIOPSY: COLONIC MUCOSA WITH MODERATE CHRONIC ACTIVE COLITIS. E. COLON, AT 20 CM, BIOPSY: COLONIC MUCOSA WITH MODERATE CHRONIC ACTIVE COLITIS. F. COLON, STRICTURE, AT 15 CM, BIOPSY: COLONIC MUCOSA WITH SEVERE CHRONIC ACTIVE COLITIS AND ASSOCIATED ULCERATION. G. RECTUM, BIOPSY: COLONIC MUCOSA WITH MODERATE CHRONIC ACTIVE COLITIS. Comment: No granuloma or dysplasia identified. Overall findings are consistent with moderate to severe activity of known history of ulcerative colitis. Electronically Signed Crystal Gunter M.D. Gross Description A. Received in formalin, labeled "BX at 75 cm" are 4 thomson, irregular portions of soft tissue measuring 0.1 and 0.2 cm. in greatest dimension. The specimens are submitted in toto in one cassette. B. Received in formalin, labeled "BX at 65 cm" are 2 thomson, irregular portions of soft tissue measuring 0.2 cm. in greatest dimension. The specimens are submitted in toto in one cassette. C. Received in formalin, labeled "BX at 50 cm" are 2 thomson, irregular portions of soft tissue measuring 0.2 and 0.4 cm. in greatest dimension. The specimens are submitted in toto in one cassette. D. Received in formalin, labeled "BX at 35 cm" are 2 thomson, irregular portions of soft tissue measuring 0.2 and 0.3 cm. in greatest dimension. The specimens are submitted in toto in one cassette. E. Received in formalin, labeled "BX at 20 cm" are 2 thomson, irregular portions of soft tissue measuring 0.1 and 0.3 cm. in greatest dimension. The specimens are submitted in toto in one cassette. F. Received in formalin, labeled "BX at 15 cm" is a thomson, irregular portion of soft tissue measuring 0.5 cm. in greatest dimension. The specimen is submitted in toto in one cassette. G. Received in formalin, labeled "BX rectum" are 2 thomson, irregular portions of soft tissue measuring 0.2 and 0.3 cm. in greatest dimension. The specimens are submitted in toto in one cassette. [id number]/17/2019 sanml12/17/2019
[2019-12-18] MEDS: AMINO ACIDS/PROTEIN HYDROLYS 30 ML LIQUID.PKT PO SCH (19:19)
[2019-12-18] MEDS ORDERED: PT OWN MED DRAWER 7, Y5N ONE (21:09)
[2019-12-18] MEDS: AMITRIPTYLINE HCL 25 MG TABLET PO SCH (21:54)
[2019-12-18] MEDS: MONTELUKAST NA 10 MG TABLET PO SCH (21:54)
[2019-12-19] MEDS ORDERED: POTASSIUM CHLORIDE TABS 20 MEQ TABLET.ER (FP) PO ONE (09:45)
[2019-12-19] MEDS: PREGABALIN 25 MG CAPSULE PO SCH ×2 (10:58→22:54)
[2019-12-19] MEDS: HEPARIN NA (PORCINE) 5,000 UNITS/ML 1ML VIAL SQ SCH ×2 (10:58→22:54)
[2019-12-19] MEDS: BUDESONIDE/FORMETEROL FUMARATE 80/4.5 mcg INHALER IH SCH ×2 (10:58→22:54)
[2019-12-19] MEDS: AMINO ACIDS/PROTEIN HYDROLYS 30 ML LIQUID.PKT PO SCH ×2 (10:58→17:55)
[2019-12-19 11:44] LABS: ALBUMIN 2.6 g/dl (3.4-5.0); BILIRUBIN,TOTAL 0.3 mg/dL (0.2-1); BLOOD UREA NITROGEN 6.1 mg/dL (7-18); CALCIUM 8.5 mg/dL (8.5-10.1); CREATININE 0.4 mg/dL (0.55-1.3); MAGNESIUM 1.9 mg/dL (1.8-2.4); POTASSIUM 4.1 mmol/L (3.5-5.1); TOT PROT 5.5 g/dl (6.4-8.2)
--- NOTE | 2019-12-19 12:54 | DS ---
Physical Examination Vital Signs: Vital Signs Temperature 97.4 F L 12/19/19 10:00 Pulse Rate 93 H 12/19/19 10:00 Respiratory Rate 18 12/19/19 10:00 Blood Pressure 119/68 12/19/19 10:00 O2 Sat by Pulse Oximetry (%) 99 12/19/19 10:00 Constitutional: Yes: No Distress HENT: Yes: Atraumatic Neck: Yes: Supple Cardiovascular: Yes: Regular Rate and Rhythm Respiratory: Yes: CTA Bilaterally Gastrointestinal: Yes: Normal Bowel Sounds Extremities: Yes: WNL Neurological: Yes: Alert, Oriented Labs: CBC, BMP 12/18/19 07:43 12/19/19 10:27 Discharge Summary Problems reviewed: Yes Reason For Visit: ULCERATIVE COLITIS Current Active Problems Colitis (Acute) Exacerbation of ulcerative colitis (Acute) Condition: Stable - Instructions Diet, Activity, Other Instructions: FOLLOW UP WITH DR BROOKS FOR BIOPSY RESULTS Referrals: Jesus Jeff MD [Primary Care Provider] - - Home Medications Comprehensive Discharge Medication List: Ambulatory Orders Montelukast Na [Singulair -] 10 mg PO HS 05/24/15 Amitriptyline HCl [Elavil -] 100 mg PO HS 05/26/15 Eszopiclone [Lunesta] 3 mg PO HS 10/18/15 Fluticasone/Salmeterol [Advair 250-50 Diskus] 1 each IH DAILY 11/19/15 Cholecalciferol (Vitamin D3) [Vitamin D -] 2,000 unit PO DAILY 07/06/16 Gabapentin 0 mg PO DAILY 12/12/19 DC HOME FU WITH DR BROOKS FOR BIOPSY RESULTS D/W DR THAKKAR DC PLAN
[2019-12-19] MEDS ORDERED: POTASSIUM CHLORIDE ORAL LIQUID 20 MEQ/15 ML PO ONE (13:30)
[2019-12-19] MEDS: SODIUM CHLORIDE 0.45%/POT 20 MEQ/1,000 ML INFUS.BAG IV SCH (13:33)
--- NOTE | 2019-12-19 13:34 | PN.GI ---
GI Progress Note Subjective: GI NOte: I informed Elana that her biopsies reveal chronic colitis but no dysplasia and that no obstruction or mass lesions were seen on the BE. I have advised her to take a mesalamine, Lialda 1.2gm daily. She agrees. I ryan prescribe it to her [facility] - Objective Vital Signs: Vital Signs Temperature 97.4 F L 12/19/19 10:00 Pulse Rate 93 H 12/19/19 10:00 Respiratory Rate 18 12/19/19 10:00 Blood Pressure 119/68 12/19/19 10:00 O2 Sat by Pulse Oximetry (%) 99 12/19/19 10:00 Laboratory Tests 12/13/19 12/18/19 12/19/19 03:30 07:43 10:27 Hct 43.8 Potassium 4.1 COVID-19 (KATHERINE) Not detected Constitutional: Calm ...Auscultate: Yes: Normoactive Bowel Sounds ...Palpate: Yes: Soft, Other (nontender) Labs: CBC, BMP 12/18/19 07:43 12/19/19 10:27 INR, PTT INR 1.13 (0.83-1.09) H 12/12/19 16:45 Assessment/Plan Impression: - Chronic ulcerative colitis. Plan: - Lialda 1.2gm daily eprescribed - No GI objections to discharge - Colonoscopy in 1 year - F/U with Dr Villar Problem List - Problems (1) Exacerbation of ulcerative colitis Code(s): K51.90 - ULCERATIVE COLITIS, UNSPECIFIED, WITHOUT COMPLICATIONS Qualifiers: Digestive disease complication type: without complication Qualified Code(s): K51.90 - Ulcerative colitis, unspecified, without complications (2) Asthma Code(s): J45.909 - UNSPECIFIED ASTHMA, UNCOMPLICATED Qualifiers: Asthma severity: unspecified severity Asthma complication type: with acute exacerbation (3) Chronic constipation Code(s): K59.09 - OTHER CONSTIPATION (4) Multiple sclerosis Code(s): G35 - MULTIPLE SCLEROSIS
--- NOTE | 2019-12-19 15:03 | PN ---
Progress Note, Physician History of Present Illness: Pt seen and examined at bedside. She is awake and alert. She feels diarrhea is improved. - Current Medication List Current Medications: Active Medications Amino Acids (Prosource No Carb Liquid Pkt) 30 ml PO BID@0800,1730 [facility] Last Admin: 12/19/19 10:58 Dose: Not Given Documented by: Amitriptyline HCl (Elavil -) 100 mg PO [facility] Last Admin: 12/18/19 21:54 Dose: 100 mg Documented by: Budesonide/Formoterol Fumarate (Symbicort 80/4.5mcg -) 2 puff IH BID [facility] Last Admin: 12/19/19 10:58 Dose: 2 puff Documented by: Heparin Sodium (Porcine) (Heparin -) 5,000 unit SQ BID [facility] Last Admin: 12/19/19 10:58 Dose: 5,000 unit Documented by: Potassium Chloride/Sodium Chloride (1/2ns+20meq Kcl) 20 meq in 1,000 mls @ 50 mls/hr IV ASDIR [facility] Last Admin: 12/19/19 13:33 Dose: 50 mls/hr Documented by: Montelukast Sodium (Singulair -) 10 mg PO [facility] Last Admin: 12/18/19 21:54 Dose: 10 mg Documented by: Ondansetron HCl (Zofran Injection) 4 mg IVPUSH Q6H PRN PRN Reason: NAUSEA AND/OR VOMITING Last Admin: 12/15/19 13:27 Dose: 4 mg Documented by: Pregabalin (Lyrica -) 25 mg PO BID [facility] Last Admin: 12/19/19 10:58 Dose: 25 mg Documented by: - Objective Vital Signs: Vital Signs Temperature 98.4 F 12/19/19 14:00 Pulse Rate 96 H 12/19/19 14:00 Respiratory Rate 18 12/19/19 14:00 Blood Pressure 112/75 12/19/19 14:00 O2 Sat by Pulse Oximetry (%) 99 12/19/19 14:00 Constitutional: Yes: Calm Eyes: Yes: Conjunctiva Clear HENT: Yes: Atraumatic Neck: Yes: Supple Cardiovascular: Yes: S1, S2 Respiratory: Yes: CTA Bilaterally Gastrointestinal: Yes: Soft Musculoskeletal: Yes: WNL Edema: No Neurological: Yes: Oriented, Pre-Existing Deficit Labs: CBC, BMP 12/18/19 07:43 12/19/19 10:27 INR, PTT INR 1.13 (0.83-1.09) H 12/12/19 16:45 Assessment/Plan Current Medications Generic Name Dose Route Start Last Admin Trade Name Freq PRN Reason Stop Dose Admin Amino Acids 30 ml 12/18/19 17:30 12/19/19 10:58 Prosource No Carb Liquid Pkt PO Not Given BID@0800,1730 DANTE Amitriptyline HCl 100 mg 12/13/19 22:00 12/18/19 21:54 Elavil - PO 100 mg HS DANTE Administration Budesonide/Formoterol Fumarate 2 puff 12/13/19 10:00 12/19/19 10:58 Symbicort 80/4.5mcg - IH 2 puff BID DANTE Administration Heparin Sodium (Porcine) 5,000 unit 12/13/19 10:00 12/19/19 10:58 Heparin - SQ 5,000 unit BID DANTE Administration Potassium Chloride/Sodium Chloride 20 meq in 1,000 mls @ 50 mls/hr 12/18/19 14:15 12/19/19 13:33 1/2ns+20meq Kcl IV 50 mls/hr ASDIR DANTE Administration Montelukast Sodium 10 mg 12/13/19 22:00 12/18/19 21:54 Singulair - PO 10 mg HS DANTE Administration Ondansetron HCl 4 mg 12/13/19 17:50 12/15/19 13:27 Zofran Injection IVPUSH 4 mg Q6H PRN Administration NAUSEA AND/OR VOMITING Pregabalin 25 mg 12/16/19 15:00 12/19/19 10:58 Lyrica - PO 25 mg BID DANTE Administration Impression 1. hypokalemia 2. ulcerative colitis 3. multile sclerosis 4. asthma 5. diarrhea Plan - potassium improved - repeat labs in am - cont hydration - encourage po intake
[2019-12-19] MEDS: ONDANSETRON 4 MG/2 ML VIAL IVPUSH PRN (21:06)
[2019-12-19] MEDS ORDERED: SIMETHICONE 80 MG TAB.CHEW (FP) PO PRN (22:46)
[2019-12-19] MEDS ORDERED: PT OWN MED DRAWER 7, Y5N ONE (22:48)
[2019-12-19] MEDS: MONTELUKAST NA 10 MG TABLET PO SCH (22:53)
[2019-12-19] MEDS: AMITRIPTYLINE HCL 25 MG TABLET PO SCH (22:53)
[2019-12-20] MEDS ORDERED: PT OWN MED DRAWER 7, Y5N ONE (09:34)
[2019-12-20] MEDS: PREGABALIN 25 MG CAPSULE PO SCH (09:44)
[2019-12-20] MEDS: AMINO ACIDS/PROTEIN HYDROLYS 30 ML LIQUID.PKT PO SCH (09:44)
[2019-12-20] MEDS: HEPARIN NA (PORCINE) 5,000 UNITS/ML 1ML VIAL SQ SCH (09:44)
[2019-12-20] MEDS: BUDESONIDE/FORMETEROL FUMARATE 80/4.5 mcg INHALER IH SCH (09:45)
[2019-12-20 13:08] VITALS: BP 145/80; PULSE 107; TEMP 97.9
== END 2019-12-20 11:09 | disposition home or self-care (01) | DRG 385 ==
LOC: JER 17:28 → JERBED 23:02 → J5S 12-13 04:09
PROVIDERS: ADMIT Family Medicine Geriatric Medicine; ATTEND Family Medicine Geriatric Medicine
PROC: 0DBE8ZX Excision of Large Intestine, Via Natural or Artificial Opening Endoscopic, Diagnostic (ICD-10-PCS; 2019-12-17)
PROC: 0DBP8ZX Excision of Rectum, Via Natural or Artificial Opening Endoscopic, Diagnostic (ICD-10-PCS; principal; 2019-12-17 12:00)
DX: K51.90 Ulcerative colitis, unspecified, without complications (principal); R53.2 Functional quadriplegia; J45.909 Unspecified asthma, uncomplicated; E66.9 Obesity, unspecified; G35 Multiple sclerosis; K59.09 Other constipation; R21 Rash and other nonspecific skin eruption; E87.6 Hypokalemia; F41.9 Anxiety disorder, unspecified; Z68.25 Body mass index [BMI] 25.0-25.9, adult
CPT/HCPCS: 36415; 71045-TC-FY; 74176-TC; 74270-TC-FY; 80053; 81003; 82272; 83605; 83690; 83735; 84484; 85025; 85610; 85730; 87040; 87045; 87046; 87086; 87186; 88305-TC; 93005; 93010; 99285-25; J0131; J1644; J3480; U0003

== ENCOUNTER 2020-09-02 14:25 | Inpatient (IN) | payer OTHER ==
[2020-09-02 16:58] LABS: EOS % 4.7 % (0-4.5); HEMATOCRIT 37.5 % (32.4-45.2); HEMOGLOBIN 12.6 GM/dL (10.7-15.3); LYMPH % 17.2 % (8-40); MCH 28.3 pg (25.7-33.7); MCHC 33.6 g/dl (32.0-36.0); MEAN CELL VOLUME 84.3 fl (80-96); MEAN PLT VOLUME 6.7 fl (7.5-11.1); MONO % 6.2 % (3.8-10.2); NEUT % 70.9 % (42.8-82.8); PLATELET COUNT 571 K/MM3 (134-434); RBC 4.45 M/mm3 (3.60-5.2); RDW 15.9 % (11.6-15.6); WHITE BLOOD COUNT 12.4 K/mm3 (4.0-10.0)
[2020-09-02 17:04] LABS: VENOUS BASE EXCESS 7.9 mmol/L (-2-2); VENOUS O2 SATURATION 79.6 % (70-80); VENOUS PCO2 42.8 mmHg (38-52); VENOUS PH 7.492 (7.310-7.410)
[2020-09-02 17:11] LABS: INR 1.18 (0.83-1.09); PROTHROMBIN TIME (PATIENT) 14.2 SEC (9.7-13.0)
[2020-09-02 17:14] LABS: ACTIVATED PTT 33.6 SECONDS (25.2-36.5)
[2020-09-02 17:27] LABS: CHLORIDE 102 mmol/L (98-107); SODIUM 143 mmol/L (136-145)
[2020-09-02 17:30] LABS: BLOOD UREA NITROGEN 6.6 mg/dL (7-18); CALCIUM 8.6 mg/dL (8.5-10.1); CO2 34 mmol/L (21-32); GLUCOSE,RANDOM 104 mg/dL (74-106)
[2020-09-02 17:33] LABS: CREATININE 0.4 mg/dL (0.55-1.3); SGPT/ALT 27 U/L (13-61)
[2020-09-02 17:34] LABS: SGOT/AST 56 U/L (15-37)
[2020-09-02 17:35] LABS: BILIRUBIN,TOTAL 0.5 mg/dL (0.2-1)
[2020-09-02 17:36] LABS: ALK PHOS 114 U/L (45-117)
[2020-09-02 17:38] LABS: ANION GAP 7 MMOL/L (8-16)
[2020-09-02] MEDS ORDERED: ACETAMINOPHEN 1000 MG/100 ML VIAL (NON FORMULARY) IVPB ONE (17:44)
[2020-09-02] MEDS ORDERED: VANCOMYCIN 1 GM in D5W (PRE-DOCKED) 1,000 MG/250 ML IVPB ONE (17:45)
[2020-09-02] MEDS ORDERED: PIPERACILLIN/TAZOB 3.375 GM 3.375 GM in DEXTROSE 5%-WATER - 50 ML IVPB ONE (17:45)
[2020-09-02] MEDS: KCL 10 MEQ IVPB 10 MEQ/100 ML INFUS.BAG IVPB SCH ×3 (19:06→21:20)
[2020-09-02] MEDS ORDERED: ACETAMINOPHEN INJECTION 100 ML IVPB ONE (19:14)
[2020-09-02] MEDS ORDERED: VANCOMYCIN 1 GRAM (PRE-DOCKED) 1,000 MG/250 ML BAG IVPB ONE (19:15)
[2020-09-02] MEDS ORDERED: KCL 10 MEQ IVPB 10 MEQ/100 ML INFUS.BAG IVPB ONE (19:15)
[2020-09-02] MEDS ORDERED: PIPERACILLIN/TAZOB 3.375 GM 3.375 GM/50 ML BAG IVPB ONE (20:16)
[2020-09-02] MEDS ORDERED: ONDANSETRON 4 MG/2 ML VIAL IVPUSH ONE (20:50)
[2020-09-02] MEDS ORDERED: ONDANSETRON 4 MG/2 ML VIAL ONE (20:51)
[2020-09-02 20:52] LABS: EPI CELLS 31 /uL (0-25.1); HYALINE CASTS 28 /uL (0-3.1); URINE APPEARANCE CLOUDY; URINE BACTERIA 218 /uL (0-1359); URINE BILIRUBIN NEGATIVE (NEGATIVE); URINE COLOR DK YELLOW; URINE GLUCOSE (UA) NEGATIVE (NEGATIVE); URINE KETONE NEGATIVE (NEGATIVE); URINE LEUK ESTERASE 3+ (NEGATIVE); URINE NITRITE NEGATIVE (NEGATIVE); URINE PROTEIN 1+ (NEGATIVE); URINE UROBILINOGEN 0.2 mg/dL (0.2-1.0); URINE WBC 452 /uL (0-25.8)
[2020-09-02 21:08] LABS: URINE RBC 34.9 /uL (0-23.9); YEAST FEW (NEGATIVE)
[2020-09-02] MEDS ORDERED: SODIUM CHLORIDE 0.9% 1000 ML INFUS.BAG IV ONE (22:43)
[2020-09-02] MEDS ORDERED: MORPHINE SULFATE 2 MG/ML VIAL IVPUSH PRN (22:43)
[2020-09-02] MEDS ORDERED: ACETAMINOPHEN 1000 MG/100 ML VIAL (NON FORMULARY) IVPB PRN (23:42)
[2020-09-03] MEDS ORDERED: ONDANSETRON 4 MG/2 ML VIAL IVPUSH PRN (00:40)
[2020-09-03] MEDS: SODIUM CHLORIDE 1,000 ML IV SCH (01:17)
[2020-09-03] MEDS ORDERED: PIPERACILLIN/TAZOB 3.375 GM 3.375 GM/50 ML BAG IVPB ONE (02:13)
[2020-09-03] MEDS: PIPERACILLIN/TAZOB 3.375 GM 3.375 GM in DEXTROSE 5%-WATER - 50 ML IVPB SCH ×3 (02:25→18:27)
[2020-09-03] MEDS: GABAPENTIN 300 MG CAPSULE PO SCH ×3 (06:25→21:06)
[2020-09-03] MEDS: INSULIN SLIDING SCALE (NOVOLOG) 1 VIAL SQ SCH ×4 (06:25→21:17)
[2020-09-03] MEDS ORDERED: VANCOMYCIN 1 GM in D5W (PRE-DOCKED) 1,000 MG/250 ML IVPB SCH (07:00)
[2020-09-03 08:26] LABS: HEMATOCRIT 34.6 % (32.4-45.2); HEMOGLOBIN 11.4 GM/dL (10.7-15.3); MCH 27.8 pg (25.7-33.7); MCHC 32.8 g/dl (32.0-36.0); MEAN CELL VOLUME 84.6 fl (80-96); MEAN PLT VOLUME 6.6 fl (7.5-11.1); PLATELET COUNT 499 K/MM3 (134-434); RBC 4.09 M/mm3 (3.60-5.2); RDW 15.9 % (11.6-15.6); WHITE BLOOD COUNT 11.2 K/mm3 (4.0-10.0)
[2020-09-03 08:30] LABS: MAGNESIUM 1.9 mg/dL (1.8-2.4)
[2020-09-03 08:34] LABS: PHOSPHOROUS 2.9 mg/dL (2.5-4.9)
[2020-09-03] MEDS ORDERED: PIPERACILLIN/TAZOBACTAM 3.375 GM VIAL IVPB ONE ×2 (08:41→18:22)
[2020-09-03] MEDS ORDERED: DEXTROSE 5%-WATER - 50 ML IVPB ONE ×2 (08:41→18:22)
[2020-09-03 08:43] LABS: CHLORIDE 104 mmol/L (98-107); SODIUM 143 mmol/L (136-145)
[2020-09-03 08:48] LABS: ALBUMIN 1.7 g/dl (3.4-5.0); BLOOD UREA NITROGEN 4.4 mg/dL (7-18); CALCIUM 8.1 mg/dL (8.5-10.1); CO2 33 mmol/L (21-32); GLUCOSE,RANDOM 97 mg/dL (74-106); MAGNESIUM 1.8 mg/dL (1.8-2.4)
[2020-09-03 08:51] LABS: CREATININE 0.4 mg/dL (0.55-1.3); PHOSPHOROUS 3.2 mg/dL (2.5-4.9); SGOT/AST 38 U/L (15-37); SGPT/ALT 21 U/L (13-61)
[2020-09-03 08:53] LABS: BILIRUBIN,TOTAL 0.4 mg/dL (0.2-1); TOT PROT 5.1 g/dl (6.4-8.2)
[2020-09-03 08:54] LABS: ALK PHOS 92 U/L (45-117)
[2020-09-03 09:24] LABS: ANION GAP 6 MMOL/L (8-16)
[2020-09-03] MEDS: ENOXAPARIN NA (PORCINE) 40 MG/0.4 ML DISP.SYRIN SQ SCH (09:41)
[2020-09-03] MEDS: COLLAGENASE CLOSTRIDIUM HIST. 30 GRAMS TUBE TP SCH (11:06)
[2020-09-03] MEDS: KCL 10 MEQ IVPB 10 MEQ/100 ML INFUS.BAG IVPB SCH ×3 (15:38→18:27)
[2020-09-03] MEDS: BACLOFEN 10 MG TABLET (FP) PO SCH (21:06)
[2020-09-03] MEDS: MONTELUKAST NA 10 MG TABLET PO SCH (21:06)
[2020-09-03] MEDS: AMITRIPTYLINE HCL 25 MG TABLET PO SCH (21:06)
[2020-09-04] MEDS ORDERED: DEXTROSE 5%-WATER - 50 ML IVPB ONE ×4 (00:17→23:22)
[2020-09-04] MEDS ORDERED: PIPERACILLIN/TAZOBACTAM 3.375 GM VIAL IVPB ONE ×4 (00:17→23:22)
[2020-09-04] MEDS: SODIUM CHLORIDE 1,000 ML IV SCH ×3 (01:36→22:02)
[2020-09-04] MEDS: PIPERACILLIN/TAZOB 3.375 GM 3.375 GM in DEXTROSE 5%-WATER - 50 ML IVPB SCH ×3 (01:36→17:26)
[2020-09-04] MEDS ORDERED: PIPERACILLIN/TAZOB 3.375 GM 3.375 GM in DEXTROSE 5%-WATER - 50 ML IVPB SCH (02:00)
[2020-09-04] MEDS: GABAPENTIN 300 MG CAPSULE PO SCH ×3 (06:42→22:01)
[2020-09-04] MEDS: BACLOFEN 10 MG TABLET (FP) PO SCH ×4 (06:42→22:05)
[2020-09-04] MEDS: INSULIN SLIDING SCALE (NOVOLOG) 1 VIAL SQ SCH ×4 (06:45→22:02)
[2020-09-04] MEDS ORDERED: VANCOMYCIN 1 GM in D5W (PRE-DOCKED) 1,000 MG/250 ML IVPB SCH (07:00)
[2020-09-04 08:25] LABS: BASO % 1.5 % (0-2.0); CALCIUM 7.7 mg/dL (8.5-10.1); EOS % 7.4 % (0-4.5); HEMATOCRIT 30.7 % (32.4-45.2); HEMOGLOBIN 10.3 GM/dL (10.7-15.3); MCH 28.5 pg (25.7-33.7); MCHC 33.5 g/dl (32.0-36.0); MEAN CELL VOLUME 85.2 fl (80-96); MEAN PLT VOLUME 6.6 fl (7.5-11.1); MONO % 8.4 % (3.8-10.2); NEUT % 67.7 % (42.8-82.8); PLATELET COUNT 456 K/MM3 (134-434); RBC 3.61 M/mm3 (3.60-5.2); RDW 15.6 % (11.6-15.6); WHITE BLOOD COUNT 9.8 K/mm3 (4.0-10.0)
[2020-09-04 08:26] LABS: ALBUMIN 1.6 g/dl (3.4-5.0); BLOOD UREA NITROGEN 4.2 mg/dL (7-18)
[2020-09-04 08:29] LABS: BILIRUBIN,TOTAL 0.3 mg/dL (0.2-1); CREATININE 0.4 mg/dL (0.55-1.3); TOT PROT 4.8 g/dl (6.4-8.2)
[2020-09-04] MEDS ORDERED: PT OWN MED DRAWER 7, Y5N ONE (09:56)
[2020-09-04] MEDS: ENOXAPARIN NA (PORCINE) 40 MG/0.4 ML DISP.SYRIN SQ SCH (10:00)
[2020-09-04] MEDS: COLLAGENASE CLOSTRIDIUM HIST. 30 GRAMS TUBE TP SCH (13:28)
[2020-09-04 16:02] VITALS: BMI 21.0
[2020-09-04] MEDS ORDERED: POTASSIUM CHLORIDE ORAL LIQUID 20 MEQ/15 ML PO ONE (17:23)
[2020-09-04] MEDS: AMINO ACIDS/PROTEIN HYDROLYS 30 ML LIQUID.PKT PO SCH (17:26)
[2020-09-04] MEDS: MONTELUKAST NA 10 MG TABLET PO SCH (22:01)
[2020-09-04] MEDS: AMITRIPTYLINE HCL 25 MG TABLET PO SCH (22:08)
[2020-09-05] MEDS: PIPERACILLIN/TAZOB 3.375 GM 3.375 GM in DEXTROSE 5%-WATER - 50 ML IVPB SCH ×3 (01:02→18:42)
[2020-09-05] MEDS: GABAPENTIN 300 MG CAPSULE PO SCH ×3 (05:49→21:02)
[2020-09-05] MEDS: BACLOFEN 10 MG TABLET (FP) PO SCH ×3 (05:58→21:01)
[2020-09-05] MEDS: INSULIN SLIDING SCALE (NOVOLOG) 1 VIAL SQ SCH ×4 (06:00→21:02)
[2020-09-05 08:10] LABS: BASO % 1.7 % (0-2.0); EOS % 9.3 % (0-4.5); HEMATOCRIT 29.7 % (32.4-45.2); HEMOGLOBIN 9.9 GM/dL (10.7-15.3); LYMPH % 18.5 % (8-40); MCH 28.5 pg (25.7-33.7); MCHC 33.3 g/dl (32.0-36.0); MEAN CELL VOLUME 85.6 fl (80-96); MEAN PLT VOLUME 6.9 fl (7.5-11.1); MONO % 9.7 % (3.8-10.2); NEUT % 60.8 % (42.8-82.8); PLATELET COUNT 404 K/MM3 (134-434); RBC 3.46 M/mm3 (3.60-5.2); RDW 15.9 % (11.6-15.6); WHITE BLOOD COUNT 8.3 K/mm3 (4.0-10.0)
[2020-09-05 08:36] LABS: ALBUMIN 1.7 g/dl (3.4-5.0); MAGNESIUM 1.6 mg/dL (1.8-2.4)
[2020-09-05 08:37] LABS: CALCIUM 7.7 mg/dL (8.5-10.1)
[2020-09-05 08:39] LABS: CREATININE 0.4 mg/dL (0.55-1.3)
[2020-09-05 08:40] LABS: BILIRUBIN,TOTAL 0.3 mg/dL (0.2-1)
[2020-09-05 08:41] LABS: TOT PROT 4.8 g/dl (6.4-8.2)
[2020-09-05] MEDS: COLLAGENASE CLOSTRIDIUM HIST. 30 GRAMS TUBE TP SCH (10:00)
[2020-09-05] MEDS ORDERED: ACETAMINOPHEN 325 MG TABLET (FP) PO PRN (10:16)
[2020-09-05] MEDS ORDERED: DEXTROSE 5%-WATER - 50 ML IVPB ONE ×2 (10:44→18:36)
[2020-09-05] MEDS ORDERED: PIPERACILLIN/TAZOBACTAM 3.375 GM VIAL IVPB ONE ×2 (10:44→18:36)
[2020-09-05] MEDS: SODIUM CHLORIDE 1,000 ML IV SCH (10:46)
[2020-09-05] MEDS: ACETAMINOPHEN 325 MG TABLET (FP) PO PRN ×2 (10:47→21:03)
[2020-09-05] MEDS: ENOXAPARIN NA (PORCINE) 40 MG/0.4 ML DISP.SYRIN SQ SCH (10:47)
[2020-09-05] MEDS: AMINO ACIDS/PROTEIN HYDROLYS 30 ML LIQUID.PKT PO SCH ×2 (14:43→19:15)
[2020-09-05] MEDS: AMITRIPTYLINE HCL 25 MG TABLET PO SCH (21:02)
[2020-09-05] MEDS: MONTELUKAST NA 10 MG TABLET PO SCH (21:02)
[2020-09-06] MEDS ORDERED: DEXTROSE 5%-WATER - 50 ML IVPB ONE ×2 (01:25→09:30)
[2020-09-06] MEDS ORDERED: PIPERACILLIN/TAZOBACTAM 3.375 GM VIAL IVPB ONE ×2 (01:25→09:30)
[2020-09-06] MEDS: SODIUM CHLORIDE 1,000 ML IV SCH ×2 (01:40→09:55)
[2020-09-06] MEDS: PIPERACILLIN/TAZOB 3.375 GM 3.375 GM in DEXTROSE 5%-WATER - 50 ML IVPB SCH ×2 (01:40→09:56)
[2020-09-06] MEDS: BACLOFEN 10 MG TABLET (FP) PO SCH ×4 (05:44→23:24)
[2020-09-06] MEDS: GABAPENTIN 300 MG CAPSULE PO SCH ×3 (05:44→23:25)
[2020-09-06] MEDS: INSULIN SLIDING SCALE (NOVOLOG) 1 VIAL SQ SCH ×4 (06:06→22:41)
[2020-09-06 09:05] LABS: BASO % 2.8 % (0-2.0); EOS % 11.2 % (0-4.5); HEMATOCRIT 33.2 % (32.4-45.2); HEMOGLOBIN 10.8 GM/dL (10.7-15.3); LYMPH % 18.3 % (8-40); MCHC 32.6 g/dl (32.0-36.0); MEAN CELL VOLUME 85.6 fl (80-96); MEAN PLT VOLUME 6.6 fl (7.5-11.1); MONO % 7.4 % (3.8-10.2); NEUT % 60.3 % (42.8-82.8); PLATELET COUNT 415 K/MM3 (134-434); RBC 3.87 M/mm3 (3.60-5.2); WHITE BLOOD COUNT 7.5 K/mm3 (4.0-10.0)
[2020-09-06 09:27] LABS: CALCIUM 7.8 mg/dL (8.5-10.1); CHLORIDE 114 mmol/L (98-107); SODIUM 153 mmol/L (136-145)
[2020-09-06 09:29] LABS: ALBUMIN 1.6 g/dl (3.4-5.0); BLOOD UREA NITROGEN 3.3 mg/dL (7-18); CO2 30 mmol/L (21-32); GLUCOSE,RANDOM 86 mg/dL (74-106)
[2020-09-06 09:30] LABS: MAGNESIUM 1.6 mg/dL (1.8-2.4)
[2020-09-06] MEDS ORDERED: PT OWN MED DRAWER 7, Y5N ONE ×2 (09:30→22:17)
[2020-09-06 09:32] LABS: CREATININE 0.3 mg/dL (0.55-1.3); SGOT/AST 62 U/L (15-37); SGPT/ALT 30 U/L (13-61)
[2020-09-06 09:34] LABS: BILIRUBIN,TOTAL 0.3 mg/dL (0.2-1)
[2020-09-06 09:35] LABS: ALK PHOS 101 U/L (45-117)
[2020-09-06 09:41] LABS: ANION GAP 10 MMOL/L (8-16)
[2020-09-06] MEDS: ENOXAPARIN NA (PORCINE) 40 MG/0.4 ML DISP.SYRIN SQ SCH (09:54)
[2020-09-06] MEDS: AMINO ACIDS/PROTEIN HYDROLYS 30 ML LIQUID.PKT PO SCH ×2 (09:56→16:55)
[2020-09-06] MEDS ORDERED: DEXTROSE 5%-WATER - 1,000 ML IV SCH (10:30)
[2020-09-06] MEDS: SULFAMETHOXAZOLE/TRIMETHOPRIM 800MG/160MG D.S. TABLET PO SCH ×2 (11:53→23:24)
[2020-09-06] MEDS: COLLAGENASE CLOSTRIDIUM HIST. 30 GRAMS TUBE TP SCH (11:53)
[2020-09-06] MEDS: POTASSIUM CHLORIDE TABS 20 MEQ TABLET.ER (FP) PO SCH ×3 (11:53→23:24)
[2020-09-06] MEDS: metroNIDAZOLE 250 MG TABLET PO SCH ×2 (14:15→23:24)
[2020-09-06] MEDS ORDERED: POTASSIUM CHLORIDE TABS 20 MEQ TABLET.ER (FP) PO STA (19:03)
[2020-09-06] MEDS: AMITRIPTYLINE HCL 25 MG TABLET PO SCH (23:24)
[2020-09-06] MEDS: MONTELUKAST NA 10 MG TABLET PO SCH (23:26)
[2020-09-07] MEDS: BACLOFEN 10 MG TABLET (FP) PO SCH ×4 (05:02→23:11)
[2020-09-07] MEDS: metroNIDAZOLE 250 MG TABLET PO SCH ×3 (05:02→23:11)
[2020-09-07] MEDS: GABAPENTIN 300 MG CAPSULE PO SCH ×3 (05:02→23:09)
[2020-09-07] MEDS: INSULIN SLIDING SCALE (NOVOLOG) 1 VIAL SQ SCH ×4 (06:11→23:14)
[2020-09-07] MEDS: AMINO ACIDS/PROTEIN HYDROLYS 30 ML LIQUID.PKT PO SCH ×3 (08:35→18:28)
[2020-09-07] MEDS: COLLAGENASE CLOSTRIDIUM HIST. 30 GRAMS TUBE TP SCH (10:38)
[2020-09-07] MEDS: SULFAMETHOXAZOLE/TRIMETHOPRIM 800MG/160MG D.S. TABLET PO SCH ×2 (10:38→23:10)
[2020-09-07] MEDS: ENOXAPARIN NA (PORCINE) 40 MG/0.4 ML DISP.SYRIN SQ SCH (10:38)
[2020-09-07 12:39] LABS: BASO % 1.7 % (0-2.0); HEMOGLOBIN 11.5 GM/dL (10.7-15.3); LYMPH % 23.5 % (8-40); MCH 28.1 pg (25.7-33.7); MCHC 32.9 g/dl (32.0-36.0); MEAN CELL VOLUME 85.5 fl (80-96); MEAN PLT VOLUME 7.2 fl (7.5-11.1); MONO % 7.8 % (3.8-10.2); PLATELET COUNT 453 K/MM3 (134-434); RBC 4.09 M/mm3 (3.60-5.2); RDW 15.9 % (11.6-15.6); WHITE BLOOD COUNT 9.4 K/mm3 (4.0-10.0)
[2020-09-07 13:12] LABS: CHLORIDE 105 mmol/L (98-107); SODIUM 144 mmol/L (136-145)
[2020-09-07 13:19] LABS: ALBUMIN 1.8 g/dl (3.4-5.0); ANION GAP 5 MMOL/L (8-16); CALCIUM 8.2 mg/dL (8.5-10.1); CO2 33 mmol/L (21-32); GLUCOSE,RANDOM 86 mg/dL (74-106)
[2020-09-07 13:21] LABS: MAGNESIUM 1.5 mg/dL (1.8-2.4)
[2020-09-07 13:22] LABS: BILIRUBIN,TOTAL 0.2 mg/dL (0.2-1); SGOT/AST 98 U/L (15-37); SGPT/ALT 38 U/L (13-61); TOT PROT 5.4 g/dl (6.4-8.2)
[2020-09-07 13:24] LABS: ALK PHOS 113 U/L (45-117); CREATININE 0.3 mg/dL (0.55-1.3)
[2020-09-07 13:33] LABS: BLOOD UREA NITROGEN 2.7 mg/dL (7-18)
[2020-09-07] MEDS ORDERED: POTASSIUM CHLORIDE TABS 20 MEQ TABLET.ER (FP) PO ONE (14:30)
[2020-09-07] MEDS ORDERED: MAGNESIUM SULF 50% (8.12 MEQ/2 ML-1 GM VIAL) IVPB ONE (17:13)
[2020-09-07] MEDS ORDERED: POTASSIUM CHLORIDE 20 MEQ in AMINO ACIDS 4.25%/D5W 1,000 ML IV SCH (17:15)
[2020-09-07] MEDS ORDERED: PT OWN MED DRAWER 7, Y5N ONE (21:14)
[2020-09-07] MEDS: KCL 10 MEQ IVPB 10 MEQ/100 ML INFUS.BAG IVPB SCH (22:26)
[2020-09-07] MEDS: ACETAMINOPHEN 325 MG TABLET (FP) PO PRN (23:09)
[2020-09-07] MEDS: MONTELUKAST NA 10 MG TABLET PO SCH (23:10)
[2020-09-07] MEDS: AMITRIPTYLINE HCL 25 MG TABLET PO SCH (23:11)
[2020-09-08] MEDS: BACLOFEN 10 MG TABLET (FP) PO SCH ×3 (05:57→21:03)
[2020-09-08] MEDS: GABAPENTIN 300 MG CAPSULE PO SCH ×3 (05:58→21:03)
[2020-09-08] MEDS: metroNIDAZOLE 250 MG TABLET PO SCH ×3 (05:59→21:03)
[2020-09-08] MEDS: INSULIN SLIDING SCALE (NOVOLOG) 1 VIAL SQ SCH ×4 (06:00→21:29)
[2020-09-08 08:52] LABS: BLOOD UREA NITROGEN 3.4 mg/dL (7-18); CALCIUM 7.9 mg/dL (8.5-10.1)
[2020-09-08 08:54] LABS: ALBUMIN 1.9 g/dl (3.4-5.0)
[2020-09-08 08:55] LABS: CREATININE 0.3 mg/dL (0.55-1.3)
[2020-09-08 08:56] LABS: BILIRUBIN,TOTAL 0.2 mg/dL (0.2-1); PHOSPHOROUS 1.4 mg/dL (2.5-4.9); TOT PROT 5.3 g/dl (6.4-8.2)
[2020-09-08] MEDS: ENOXAPARIN NA (PORCINE) 40 MG/0.4 ML DISP.SYRIN SQ SCH (09:53)
[2020-09-08] MEDS: SULFAMETHOXAZOLE/TRIMETHOPRIM 800MG/160MG D.S. TABLET PO SCH ×2 (09:53→21:03)
[2020-09-08] MEDS: AMINO ACIDS/PROTEIN HYDROLYS 30 ML LIQUID.PKT PO SCH ×3 (09:53→17:47)
[2020-09-08] MEDS ORDERED: POTASSIUM CHLORIDE ORAL LIQUID 20 MEQ/15 ML PO ONE (12:50)
[2020-09-08] MEDS ORDERED: POTASSIUM PHOSPHATE 30 MM in DEXTROSE 5%-WATER - 500 ML IVPB ONE (13:30)
[2020-09-08] MEDS ORDERED: PT OWN MED DRAWER 7, Y5N ONE ×2 (14:13→20:49)
[2020-09-08] MEDS: COLLAGENASE CLOSTRIDIUM HIST. 30 GRAMS TUBE TP SCH (14:20)
[2020-09-08] MEDS: POTASSIUM CHLORIDE 20 MEQ in AMINO ACIDS 4.25%/D5W 1,000 ML IV SCH ×2 (17:45→23:16)
[2020-09-08] MEDS: MONTELUKAST NA 10 MG TABLET PO SCH (21:02)
[2020-09-08] MEDS: AMITRIPTYLINE HCL 25 MG TABLET PO SCH (21:03)
[2020-09-09] MEDS: GABAPENTIN 300 MG CAPSULE PO SCH ×3 (06:08→21:14)
[2020-09-09] MEDS: BACLOFEN 10 MG TABLET (FP) PO SCH ×3 (06:08→21:15)
[2020-09-09] MEDS: metroNIDAZOLE 250 MG TABLET PO SCH ×3 (06:08→21:14)
[2020-09-09] MEDS: INSULIN SLIDING SCALE (NOVOLOG) 1 VIAL SQ SCH ×3 (06:09→16:55)
[2020-09-09 08:38] LABS: ALBUMIN 1.9 g/dl (3.4-5.0)
[2020-09-09 08:39] LABS: BLOOD UREA NITROGEN 5.1 mg/dL (7-18); CALCIUM 7.5 mg/dL (8.5-10.1); MAGNESIUM 1.8 mg/dL (1.8-2.4)
[2020-09-09 08:42] LABS: CREATININE 0.3 mg/dL (0.55-1.3); PHOSPHOROUS 2.6 mg/dL (2.5-4.9)
[2020-09-09 08:43] LABS: BILIRUBIN,TOTAL 0.2 mg/dL (0.2-1); TOT PROT 5.2 g/dl (6.4-8.2)
[2020-09-09] MEDS: AMINO ACIDS/PROTEIN HYDROLYS 30 ML LIQUID.PKT PO SCH ×2 (09:03→17:21)
[2020-09-09] MEDS: ENOXAPARIN NA (PORCINE) 40 MG/0.4 ML DISP.SYRIN SQ SCH (09:58)
[2020-09-09] MEDS: SULFAMETHOXAZOLE/TRIMETHOPRIM 800MG/160MG D.S. TABLET PO SCH ×2 (09:58→21:14)
[2020-09-09] MEDS: COLLAGENASE CLOSTRIDIUM HIST. 30 GRAMS TUBE TP SCH (10:00)
[2020-09-09] MEDS ORDERED: POTASSIUM CHLORIDE ORAL LIQUID 20 MEQ/15 ML PO ONE (15:06)
[2020-09-09] MEDS ORDERED: FUROSEMIDE 20 MG TABLET (FP) PO ONE (15:06)
[2020-09-09] MEDS ORDERED: PT OWN MED DRAWER 7, Y5N ONE (20:43)
[2020-09-09] MEDS: MONTELUKAST NA 10 MG TABLET PO SCH (21:14)
[2020-09-09] MEDS: AMITRIPTYLINE HCL 25 MG TABLET PO SCH (21:15)
[2020-09-10] MEDS: BACLOFEN 10 MG TABLET (FP) PO SCH ×2 (05:44→13:36)
[2020-09-10] MEDS: metroNIDAZOLE 250 MG TABLET PO SCH ×2 (05:44→13:36)
[2020-09-10] MEDS: GABAPENTIN 300 MG CAPSULE PO SCH ×2 (05:44→13:36)
[2020-09-10] MEDS: AMINO ACIDS/PROTEIN HYDROLYS 30 ML LIQUID.PKT PO SCH ×2 (08:34→17:45)
[2020-09-10 09:05] LABS: CALCIUM 8.1 mg/dL (8.5-10.1)
[2020-09-10 09:06] LABS: ALBUMIN 2.1 g/dl (3.4-5.0); BLOOD UREA NITROGEN 4.4 mg/dL (7-18)
[2020-09-10 09:09] LABS: CREATININE 0.4 mg/dL (0.55-1.3)
[2020-09-10 09:11] LABS: BILIRUBIN,TOTAL 0.2 mg/dL (0.2-1); TOT PROT 5.5 g/dl (6.4-8.2)
[2020-09-10] MEDS: SULFAMETHOXAZOLE/TRIMETHOPRIM 800MG/160MG D.S. TABLET PO SCH (10:04)
[2020-09-10] MEDS: COLLAGENASE CLOSTRIDIUM HIST. 30 GRAMS TUBE TP SCH (10:04)
[2020-09-10] MEDS ORDERED: FUROSEMIDE 20 MG TABLET (FP) PO ONE (14:59)
[2020-09-10] MEDS ORDERED: POTASSIUM CHLORIDE ORAL LIQUID 20 MEQ/15 ML PO ONE (14:59)
[2020-09-10] MEDS ORDERED: POTASSIUM CHLORIDE TABS 20 MEQ TABLET.ER (FP) PO ONE (16:45)
[2020-09-10] MEDS ORDERED: ONDANSETRON 4 MG TABLET PO PRN (17:50)
[2020-09-10] MEDS ORDERED: PT OWN MED DRAWER 7, Y5N ONE ×2 (18:09→20:23)
[2020-09-11] MEDS: SULFAMETHOXAZOLE/TRIMETHOPRIM 800MG/160MG D.S. TABLET PO SCH ×3 (04:20→22:15)
[2020-09-11] MEDS: AMITRIPTYLINE HCL 25 MG TABLET PO SCH ×2 (04:21→23:00)
[2020-09-11] MEDS: BACLOFEN 10 MG TABLET (FP) PO SCH ×4 (04:21→22:15)
[2020-09-11] MEDS: metroNIDAZOLE 250 MG TABLET PO SCH ×4 (04:21→22:15)
[2020-09-11] MEDS: GABAPENTIN 300 MG CAPSULE PO SCH ×4 (04:22→22:15)
[2020-09-11] MEDS: MONTELUKAST NA 10 MG TABLET PO SCH ×2 (04:22→22:15)
[2020-09-11] MEDS: AMINO ACIDS/PROTEIN HYDROLYS 30 ML LIQUID.PKT PO SCH ×3 (09:01→17:46)
[2020-09-11] MEDS: ENOXAPARIN NA (PORCINE) 40 MG/0.4 ML DISP.SYRIN SQ SCH (09:01)
[2020-09-11] MEDS: COLLAGENASE CLOSTRIDIUM HIST. 30 GRAMS TUBE TP SCH (09:02)
[2020-09-11 09:52] LABS: BLOOD UREA NITROGEN 3.4 mg/dL (7-18); CALCIUM 8.8 mg/dL (8.5-10.1)
[2020-09-11 09:56] LABS: CREATININE 0.4 mg/dL (0.55-1.3)
[2020-09-11] MEDS: PANTOPRAZOLE 40 MG TABLET PO SCH (13:04)
[2020-09-12] MEDS: GABAPENTIN 300 MG CAPSULE PO SCH ×3 (05:34→22:03)
[2020-09-12] MEDS: metroNIDAZOLE 250 MG TABLET PO SCH ×3 (05:34→22:03)
[2020-09-12] MEDS: BACLOFEN 10 MG TABLET (FP) PO SCH ×3 (05:34→22:03)
[2020-09-12 08:41] LABS: BASO % 1.3 % (0-2.0); EOS % 10.9 % (0-4.5); HEMOGLOBIN 10.8 GM/dL (10.7-15.3); LYMPH % 21.5 % (8-40); MCH 28.6 pg (25.7-33.7); MCHC 33.7 g/dl (32.0-36.0); MEAN CELL VOLUME 85.1 fl (80-96); MONO % 9.5 % (3.8-10.2); NEUT % 56.8 % (42.8-82.8); PLATELET COUNT 537 K/MM3 (134-434); RBC 3.77 M/mm3 (3.60-5.2); RDW 16.8 % (11.6-15.6); WHITE BLOOD COUNT 8.6 K/mm3 (4.0-10.0)
[2020-09-12 09:03] LABS: CALCIUM 8.6 mg/dL (8.5-10.1)
[2020-09-12 09:04] LABS: ALBUMIN 2.4 g/dl (3.4-5.0); BLOOD UREA NITROGEN 3.6 mg/dL (7-18)
[2020-09-12 09:07] LABS: CREATININE 0.5 mg/dL (0.55-1.3)
[2020-09-12 09:09] LABS: BILIRUBIN,TOTAL 0.3 mg/dL (0.2-1)
[2020-09-12] MEDS: AMINO ACIDS/PROTEIN HYDROLYS 30 ML LIQUID.PKT PO SCH ×2 (09:31→17:47)
[2020-09-12] MEDS: ENOXAPARIN NA (PORCINE) 40 MG/0.4 ML DISP.SYRIN SQ SCH (09:38)
[2020-09-12] MEDS: SULFAMETHOXAZOLE/TRIMETHOPRIM 800MG/160MG D.S. TABLET PO SCH ×2 (09:38→22:03)
[2020-09-12] MEDS: PANTOPRAZOLE 40 MG TABLET PO SCH (09:38)
[2020-09-12] MEDS: COLLAGENASE CLOSTRIDIUM HIST. 30 GRAMS TUBE TP SCH (10:55)
[2020-09-12] MEDS: AMITRIPTYLINE HCL 25 MG TABLET PO SCH (22:03)
[2020-09-12] MEDS: MONTELUKAST NA 10 MG TABLET PO SCH (22:03)
[2020-09-13] MEDS: GABAPENTIN 300 MG CAPSULE PO SCH ×4 (06:41→22:55)
[2020-09-13] MEDS: BACLOFEN 10 MG TABLET (FP) PO SCH ×4 (06:41→22:54)
[2020-09-13] MEDS: metroNIDAZOLE 250 MG TABLET PO SCH ×3 (06:41→22:36)
[2020-09-13] MEDS ORDERED: PT OWN MED DRAWER 7, Y5N ONE ×2 (09:34→20:43)
[2020-09-13] MEDS: ENOXAPARIN NA (PORCINE) 40 MG/0.4 ML DISP.SYRIN SQ SCH (09:45)
[2020-09-13] MEDS: SULFAMETHOXAZOLE/TRIMETHOPRIM 800MG/160MG D.S. TABLET PO SCH ×3 (09:45→22:55)
[2020-09-13] MEDS: PANTOPRAZOLE 40 MG TABLET PO SCH (09:45)
[2020-09-13] MEDS: AMINO ACIDS/PROTEIN HYDROLYS 30 ML LIQUID.PKT PO SCH ×2 (09:45→17:34)
[2020-09-13] MEDS: COLLAGENASE CLOSTRIDIUM HIST. 30 GRAMS TUBE TP SCH (09:45)
[2020-09-13 14:29] LABS: BASO % 0.9 % (0-2.0); EOS % 4.1 % (0-4.5); HEMOGLOBIN 12.4 GM/dL (10.7-15.3); MCH 28.6 pg (25.7-33.7); MCHC 33.4 g/dl (32.0-36.0); MEAN CELL VOLUME 85.6 fl (80-96); MEAN PLT VOLUME 7.4 fl (7.5-11.1); MONO % 7.9 % (3.8-10.2); NEUT % 71.1 % (42.8-82.8); PLATELET COUNT 567 K/MM3 (134-434); RBC 4.33 M/mm3 (3.60-5.2); RDW 16.9 % (11.6-15.6); WHITE BLOOD COUNT 9.9 K/mm3 (4.0-10.0)
[2020-09-13 14:55] LABS: CALCIUM 8.9 mg/dL (8.5-10.1)
[2020-09-13 14:56] LABS: ALBUMIN 2.6 g/dl (3.4-5.0)
[2020-09-13 14:58] LABS: BLOOD UREA NITROGEN 4.4 mg/dL (7-18)
[2020-09-13 15:01] LABS: BILIRUBIN,TOTAL 0.4 mg/dL (0.2-1); TOT PROT 6.4 g/dl (6.4-8.2)
[2020-09-13 15:02] LABS: CREATININE 0.6 mg/dL (0.55-1.3)
[2020-09-13] MEDS ORDERED: DEXTROSE 5%-0.45% SALINE 1,000 ML IV SCH (18:15)
[2020-09-13] MEDS: MONTELUKAST NA 10 MG TABLET PO SCH ×2 (21:53→22:55)
[2020-09-13] MEDS: AMITRIPTYLINE HCL 25 MG TABLET PO SCH (22:28)
[2020-09-14 01:41] LABS: EPI CELLS 3 /uL (0-25.1); HYALINE CASTS 17 /uL (0-3.1); PH,URINE 5.5 (5.0-8.0); URINE APPEARANCE CLOUDY; URINE BACTERIA 53 /uL (0-1359); URINE BILIRUBIN NEGATIVE (NEGATIVE); URINE COLOR DK YELLOW; URINE GLUCOSE (UA) NEGATIVE (NEGATIVE); URINE KETONE 2+ (NEGATIVE); URINE LEUK ESTERASE 2+ (NEGATIVE); URINE NITRITE NEGATIVE (NEGATIVE); URINE PROTEIN TRACE (NEGATIVE); URINE RBC 137 /uL (0-23.9); URINE UROBILINOGEN 0.2 mg/dL (0.2-1.0); URINE WBC 662 /uL (0-25.8)
[2020-09-14] MEDS: BACLOFEN 10 MG TABLET (FP) PO SCH ×3 (06:06→22:28)
[2020-09-14] MEDS: GABAPENTIN 300 MG CAPSULE PO SCH ×3 (06:06→22:27)
[2020-09-14] MEDS: metroNIDAZOLE 250 MG TABLET PO SCH ×3 (06:06→22:27)
[2020-09-14 08:56] LABS: BASO % 1.1 % (0-2.0); EOS % 1.7 % (0-4.5); HEMATOCRIT 34.2 % (32.4-45.2); HEMOGLOBIN 11.4 GM/dL (10.7-15.3); MCH 28.7 pg (25.7-33.7); MCHC 33.4 g/dl (32.0-36.0); MEAN CELL VOLUME 86.1 fl (80-96); MEAN PLT VOLUME 7.5 fl (7.5-11.1); MONO % 6.8 % (3.8-10.2); NEUT % 75.4 % (42.8-82.8); PLATELET COUNT 596 K/MM3 (134-434); RBC 3.98 M/mm3 (3.60-5.2); WHITE BLOOD COUNT 9.8 K/mm3 (4.0-10.0)
[2020-09-14 09:18] LABS: ALBUMIN 2.5 g/dl (3.4-5.0)
[2020-09-14 09:26] LABS: BILIRUBIN,TOTAL 0.3 mg/dL (0.2-1)
[2020-09-14 09:29] LABS: BLOOD UREA NITROGEN 6.1 mg/dL (7-18)
[2020-09-14 09:30] LABS: CALCIUM 8.8 mg/dL (8.5-10.1)
[2020-09-14 09:32] LABS: CREATININE 0.5 mg/dL (0.55-1.3)
[2020-09-14 09:33] LABS: TOT PROT 6.3 g/dl (6.4-8.2)
[2020-09-14] MEDS: ENOXAPARIN NA (PORCINE) 40 MG/0.4 ML DISP.SYRIN SQ SCH (09:50)
[2020-09-14] MEDS: SULFAMETHOXAZOLE/TRIMETHOPRIM 800MG/160MG D.S. TABLET PO SCH ×2 (09:51→22:27)
[2020-09-14] MEDS: AMINO ACIDS/PROTEIN HYDROLYS 30 ML LIQUID.PKT PO SCH ×2 (09:51→17:53)
[2020-09-14] MEDS: PANTOPRAZOLE 40 MG TABLET PO SCH (09:51)
[2020-09-14] MEDS: COLLAGENASE CLOSTRIDIUM HIST. 30 GRAMS TUBE TP SCH (13:24)
[2020-09-14] MEDS: AMINO ACIDS 4.25%/D5W 1,000 ML IV SCH (17:53)
[2020-09-14] MEDS ORDERED: PT OWN MED DRAWER 7, Y5N ONE (21:00)
[2020-09-14] MEDS: AMITRIPTYLINE HCL 25 MG TABLET PO SCH (22:27)
[2020-09-14] MEDS: MONTELUKAST NA 10 MG TABLET PO SCH (22:27)
[2020-09-15] MEDS: BACLOFEN 10 MG TABLET (FP) PO SCH ×3 (06:09→22:56)
[2020-09-15] MEDS: GABAPENTIN 300 MG CAPSULE PO SCH ×3 (06:09→22:56)
[2020-09-15] MEDS: metroNIDAZOLE 250 MG TABLET PO SCH ×3 (06:09→22:57)
[2020-09-15] MEDS: AMINO ACIDS/PROTEIN HYDROLYS 30 ML LIQUID.PKT PO SCH ×2 (09:00→18:45)
[2020-09-15] MEDS ORDERED: risperiDONE 1 MG TABLET PO SCH (10:00)
[2020-09-15] MEDS: ENOXAPARIN NA (PORCINE) 40 MG/0.4 ML DISP.SYRIN SQ SCH (10:45)
[2020-09-15] MEDS: SULFAMETHOXAZOLE/TRIMETHOPRIM 800MG/160MG D.S. TABLET PO SCH ×2 (10:45→22:56)
[2020-09-15] MEDS: PANTOPRAZOLE 40 MG TABLET PO SCH (10:45)
[2020-09-15] MEDS: COLLAGENASE CLOSTRIDIUM HIST. 30 GRAMS TUBE TP SCH (11:23)
[2020-09-15] MEDS: AMINO ACIDS 4.25%/D5W 1,000 ML IV SCH (16:20)
[2020-09-15] MEDS ORDERED: PT OWN MED DRAWER 7, Y5N ONE (20:27)
[2020-09-15] MEDS: MONTELUKAST NA 10 MG TABLET PO SCH (22:56)
[2020-09-15] MEDS: risperiDONE 0.5 MG TABLET PO SCH (22:56)
[2020-09-15] MEDS: AMITRIPTYLINE HCL 25 MG TABLET PO SCH (22:57)
[2020-09-16] MEDS: BACLOFEN 10 MG TABLET (FP) PO SCH ×3 (05:26→22:26)
[2020-09-16] MEDS: metroNIDAZOLE 250 MG TABLET PO SCH ×3 (05:26→22:25)
[2020-09-16] MEDS: GABAPENTIN 300 MG CAPSULE PO SCH ×3 (05:27→22:25)
[2020-09-16] MEDS: AMINO ACIDS/PROTEIN HYDROLYS 30 ML LIQUID.PKT PO SCH ×2 (08:35→17:59)
[2020-09-16 09:29] LABS: BLOOD UREA NITROGEN 11.6 mg/dL (7-18)
[2020-09-16 09:30] LABS: ALBUMIN 2.3 g/dl (3.4-5.0)
[2020-09-16 09:33] LABS: CREATININE 0.4 mg/dL (0.55-1.3)
[2020-09-16 09:34] LABS: BILIRUBIN,TOTAL 0.3 mg/dL (0.2-1); TOT PROT 5.7 g/dl (6.4-8.2)
[2020-09-16] MEDS: SULFAMETHOXAZOLE/TRIMETHOPRIM 800MG/160MG D.S. TABLET PO SCH ×2 (10:53→22:26)
[2020-09-16] MEDS: ENOXAPARIN NA (PORCINE) 40 MG/0.4 ML DISP.SYRIN SQ SCH (10:53)
[2020-09-16] MEDS: CITALOPRAM HYDROBROMIDE 10 MG TABLET PO SCH (10:53)
[2020-09-16] MEDS: PANTOPRAZOLE 40 MG TABLET PO SCH (10:54)
[2020-09-16] MEDS: COLLAGENASE CLOSTRIDIUM HIST. 30 GRAMS TUBE TP SCH (10:54)
[2020-09-16] MEDS: SODIUM HYPOCHLORITE 0.25%- 473 ML BULK BOTTLE TP SCH (15:01)
[2020-09-16] MEDS ORDERED: PT OWN MED DRAWER 7, Y5N ONE ×2 (21:20→22:27)
[2020-09-16] MEDS: MONTELUKAST NA 10 MG TABLET PO SCH (22:25)
[2020-09-16] MEDS: risperiDONE 0.5 MG TABLET PO SCH (22:25)
[2020-09-16] MEDS: AMITRIPTYLINE HCL 25 MG TABLET PO SCH (22:26)
[2020-09-17] MEDS: GABAPENTIN 300 MG CAPSULE PO SCH ×3 (06:56→21:31)
[2020-09-17] MEDS: metroNIDAZOLE 250 MG TABLET PO SCH ×3 (06:56→21:30)
[2020-09-17] MEDS: BACLOFEN 10 MG TABLET (FP) PO SCH ×3 (06:56→21:31)
[2020-09-17] MEDS: CITALOPRAM HYDROBROMIDE 10 MG TABLET PO SCH (10:24)
[2020-09-17] MEDS: ENOXAPARIN NA (PORCINE) 40 MG/0.4 ML DISP.SYRIN SQ SCH (10:24)
[2020-09-17] MEDS: PANTOPRAZOLE 40 MG TABLET PO SCH (10:24)
[2020-09-17] MEDS: COLLAGENASE CLOSTRIDIUM HIST. 30 GRAMS TUBE TP SCH (10:25)
[2020-09-17] MEDS: AMINO ACIDS/PROTEIN HYDROLYS 30 ML LIQUID.PKT PO SCH ×2 (10:25→17:52)
[2020-09-17] MEDS: SODIUM HYPOCHLORITE 0.25%- 473 ML BULK BOTTLE TP SCH (10:25)
[2020-09-17] MEDS: SULFAMETHOXAZOLE/TRIMETHOPRIM 800MG/160MG D.S. TABLET PO SCH ×2 (10:25→21:31)
[2020-09-17] MEDS: risperiDONE 0.5 MG TABLET PO SCH (21:30)
[2020-09-17] MEDS: MONTELUKAST NA 10 MG TABLET PO SCH (21:30)
[2020-09-17] MEDS: AMITRIPTYLINE HCL 25 MG TABLET PO SCH (21:39)
[2020-09-18] MEDS: BACLOFEN 10 MG TABLET (FP) PO SCH ×3 (05:56→21:42)
[2020-09-18] MEDS: metroNIDAZOLE 250 MG TABLET PO SCH ×3 (05:56→21:41)
[2020-09-18] MEDS: GABAPENTIN 300 MG CAPSULE PO SCH ×3 (05:58→21:41)
[2020-09-18] MEDS: AMINO ACIDS/PROTEIN HYDROLYS 30 ML LIQUID.PKT PO SCH ×2 (09:06→17:50)
[2020-09-18] MEDS ORDERED: PT OWN MED DRAWER 7, Y5N ONE ×2 (10:48→20:57)
[2020-09-18] MEDS: SODIUM HYPOCHLORITE 0.25%- 473 ML BULK BOTTLE TP SCH (10:54)
[2020-09-18] MEDS: SULFAMETHOXAZOLE/TRIMETHOPRIM 800MG/160MG D.S. TABLET PO SCH ×2 (10:54→21:41)
[2020-09-18] MEDS: ENOXAPARIN NA (PORCINE) 40 MG/0.4 ML DISP.SYRIN SQ SCH (10:54)
[2020-09-18] MEDS: CITALOPRAM HYDROBROMIDE 10 MG TABLET PO SCH (10:54)
[2020-09-18] MEDS: PANTOPRAZOLE 40 MG TABLET PO SCH (10:54)
[2020-09-18] MEDS: COLLAGENASE CLOSTRIDIUM HIST. 30 GRAMS TUBE TP SCH (10:54)
[2020-09-18] MEDS: MONTELUKAST NA 10 MG TABLET PO SCH (21:41)
[2020-09-18] MEDS: AMITRIPTYLINE HCL 25 MG TABLET PO SCH (21:42)
[2020-09-18] MEDS: risperiDONE 0.5 MG TABLET PO SCH (21:42)
[2020-09-19] MEDS: BACLOFEN 10 MG TABLET (FP) PO SCH ×2 (06:40→13:17)
[2020-09-19] MEDS: metroNIDAZOLE 250 MG TABLET PO SCH ×2 (06:40→13:17)
[2020-09-19] MEDS: GABAPENTIN 300 MG CAPSULE PO SCH ×2 (06:40→13:17)
[2020-09-19 08:08] LABS: CALCIUM 8.5 mg/dL (8.5-10.1)
[2020-09-19 08:09] LABS: ALBUMIN 2.5 g/dl (3.4-5.0); BLOOD UREA NITROGEN 11.9 mg/dL (7-18)
[2020-09-19 08:12] LABS: CREATININE 0.4 mg/dL (0.55-1.3)
[2020-09-19 08:14] LABS: BILIRUBIN,TOTAL 0.3 mg/dL (0.2-1)
[2020-09-19] MEDS: CITALOPRAM HYDROBROMIDE 10 MG TABLET PO SCH (09:46)
[2020-09-19] MEDS: SULFAMETHOXAZOLE/TRIMETHOPRIM 800MG/160MG D.S. TABLET PO SCH (09:46)
[2020-09-19] MEDS: ENOXAPARIN NA (PORCINE) 40 MG/0.4 ML DISP.SYRIN SQ SCH (09:46)
[2020-09-19] MEDS: PANTOPRAZOLE 40 MG TABLET PO SCH (09:46)
[2020-09-19] MEDS: AMINO ACIDS/PROTEIN HYDROLYS 30 ML LIQUID.PKT PO SCH ×2 (09:47→18:04)
[2020-09-19] MEDS: SODIUM HYPOCHLORITE 0.25%- 473 ML BULK BOTTLE TP SCH (09:47)
[2020-09-19] MEDS: COLLAGENASE CLOSTRIDIUM HIST. 30 GRAMS TUBE TP SCH (09:48)
[2020-09-20] MEDS: AMITRIPTYLINE HCL 25 MG TABLET PO SCH ×2 (06:30→23:00)
[2020-09-20] MEDS: BACLOFEN 10 MG TABLET (FP) PO SCH ×4 (06:30→22:55)
[2020-09-20] MEDS: metroNIDAZOLE 250 MG TABLET PO SCH ×4 (06:30→22:56)
[2020-09-20] MEDS: SULFAMETHOXAZOLE/TRIMETHOPRIM 800MG/160MG D.S. TABLET PO SCH ×3 (06:30→22:56)
[2020-09-20] MEDS: GABAPENTIN 300 MG CAPSULE PO SCH ×4 (06:31→22:56)
[2020-09-20] MEDS: MONTELUKAST NA 10 MG TABLET PO SCH ×2 (06:31→22:56)
[2020-09-20] MEDS: risperiDONE 0.5 MG TABLET PO SCH ×2 (06:31→22:56)
[2020-09-20] MEDS: AMINO ACIDS/PROTEIN HYDROLYS 30 ML LIQUID.PKT PO SCH ×2 (09:31→17:09)
[2020-09-20] MEDS: CITALOPRAM HYDROBROMIDE 10 MG TABLET PO SCH (09:33)
[2020-09-20] MEDS: PANTOPRAZOLE 40 MG TABLET PO SCH (09:33)
[2020-09-20] MEDS: ENOXAPARIN NA (PORCINE) 40 MG/0.4 ML DISP.SYRIN SQ SCH (09:33)
[2020-09-20] MEDS ORDERED: PT OWN MED DRAWER 7, Y5N ONE (12:24)
[2020-09-20] MEDS: SODIUM HYPOCHLORITE 0.25%- 473 ML BULK BOTTLE TP SCH (12:26)
[2020-09-20] MEDS: COLLAGENASE CLOSTRIDIUM HIST. 30 GRAMS TUBE TP SCH (12:26)
[2020-09-20] MEDS: ACETAMINOPHEN 325 MG TABLET (FP) PO PRN (22:55)
[2020-09-21] MEDS ORDERED: PT OWN MED DRAWER 7, Y5N ONE (07:48)
[2020-09-21] MEDS: GABAPENTIN 300 MG CAPSULE PO SCH (07:53)
[2020-09-21] MEDS: BACLOFEN 10 MG TABLET (FP) PO SCH (07:53)
[2020-09-21] MEDS: metroNIDAZOLE 250 MG TABLET PO SCH (07:53)
[2020-09-21] MEDS: AMINO ACIDS/PROTEIN HYDROLYS 30 ML LIQUID.PKT PO SCH (09:47)
[2020-09-21] MEDS: CITALOPRAM HYDROBROMIDE 10 MG TABLET PO SCH (09:48)
[2020-09-21] MEDS: SULFAMETHOXAZOLE/TRIMETHOPRIM 800MG/160MG D.S. TABLET PO SCH (09:48)
[2020-09-21] MEDS: PANTOPRAZOLE 40 MG TABLET PO SCH (09:48)
[2020-09-21] MEDS: ENOXAPARIN NA (PORCINE) 40 MG/0.4 ML DISP.SYRIN SQ SCH (09:48)
[2020-09-21] MEDS: COLLAGENASE CLOSTRIDIUM HIST. 30 GRAMS TUBE TP SCH (09:49)
[2020-09-21] MEDS: SODIUM HYPOCHLORITE 0.25%- 473 ML BULK BOTTLE TP SCH (09:50)
[2020-09-21] MEDS ORDERED: SODIUM CHLORIDE 500 ML IV STA (13:13)
[2020-09-21 15:34] VITALS: BP 105/65; PULSE 93; TEMP 97.6
== END 2020-09-21 16:53 | DRG 871 ==
LOC: JER 14:25 → JERBED 18:12 → J8W 09-03 02:49
PROVIDERS: ADMIT Hospitalist; ATTEND Internal Medicine
DX: A41.89 Other specified sepsis (principal); L89.154 Pressure ulcer of sacral region, stage 4; R53.2 Functional quadriplegia; G93.41 Metabolic encephalopathy; J98.11 Atelectasis; E46 Unspecified protein-calorie malnutrition; K51.90 Ulcerative colitis, unspecified, without complications; J90 Pleural effusion, not elsewhere classified; G35 Multiple sclerosis; E87.6 Hypokalemia; I95.9 Hypotension, unspecified; J45.909 Unspecified asthma, uncomplicated; E88.09 Other disorders of plasma-protein metabolism, not elsewhere classified; F32.9 Major depressive disorder, single episode, unspecified; Z68.21 Body mass index [BMI] 21.0-21.9, adult; R50.9 Fever, unspecified; D47.3 Essential (hemorrhagic) thrombocythemia; D72.829 Elevated white blood cell count, unspecified; F41.9 Anxiety disorder, unspecified; E83.42 Hypomagnesemia; Z88.1 Allergy status to other antibiotic agents
CPT/HCPCS: 36415; 70450-TC; 71045-TC-FY; 71250-TC; 74018-TC-FY; 80048; 80053; 81003; 82607; 82803; 82962; 83036; 83605; 83735; 84100; 84484; 85025; 85027; 85610; 85730; 86140; 87040; 87070; 87086; 87186; 87205; 93005; 93010; 94010; 97162-GP; 99285-25; C9803; J0131; J0475; J2794; U0003; U0005